=== PATIENT | female | born 1980 | race Caucasian/White ===

== ENCOUNTER → 2016-05-31 | Outpatient (CLI) | payer OTHER ==
[~2016-05-31] VITALS: Ht 167.6 cm; Wt 64.4 kg
[~2016-05-31] MED LIST: ASMA1AER3 INH; GAVICHW5 PO; LIDOCAINE 2% INJ 100 MG/5 ML SDV (FOR ANES.) As Ordered ONE; MAGN250T5 PO; NS 1,000 ML IV SCH; PROA1AER INH; PROPOFOL 200 MG/20 ML VIAL As Ordered ONE; PROZ20CA11 PO; VITA-112 PO; VITA-130 PO; VITA250L PO; XANA0.25 PO
--- NOTE | 2016-05-31 10:25 | ROOR ---
Patient Name: Maira Huff Procedure Date: 05/31/2016 10:01 AM Date of : 1980 Age: 36 Room: [facility] Gender: Female Note Status: Finalized Procedure: Colonoscopy Indications: High risk colon cancer surveillance: Personal history of colonic polyps, Last colonoscopy: December 2012 Providers: Clark CROUCH MD Referring MD: Arik Mendez MD Requesting Provider: Medicines: Monitored Anesthesia Care Complications: No immediate complications. Procedure: Pre-Anesthesia Assessment: - The heart rate, respiratory rate, oxygen saturations, blood pressure, adequacy of pulmonary ventilation, and response to care were monitored throughout the procedure. The Colonoscope was introduced through the anus and advanced to the cecum, identified by appendiceal orifice and ileocecal valve. The colonoscopy was performed without difficulty. The patient tolerated the procedure well. The quality of the bowel preparation was good. Findings: The perianal and digital rectal examinations were normal. (Exam: Complete, Prep: Good or Excellent.) The colon (entire examined portion) was redundant. The entire examined colon appeared normal on direct and retroflexion views. Impression: - Redundant colon. - The entire colon is normal on direct and retroflexion views. - No specimens collected. Recommendation: - Repeat colonoscopy in 5 years for surveillance. Clark Crouch MD Clark CROUCH MD 05/31/2016 10:24:53 AM This report has been signed electronically. Number of Addenda: 0 Note Initiated On: 05/31/2016 10:01 AM Estimated Blood Loss: Estimated blood loss: none.
[2016-05-31 10:50] VITALS: BP 108/61
== END | disposition home or self-care (01) ==
LOC: M OPP 08:06
PROVIDERS: ATTEND Internal Medicine Gastroenterology
DX: Z12.11 Encounter for screening for malignant neoplasm of colon (principal); Z86.010 Personal history of colon polyps; Q43.8 Other specified congenital malformations of intestine; R06.83 Snoring; J45.909 Unspecified asthma, uncomplicated; Z97.2 Presence of dental prosthetic device (complete) (partial); Z87.891 Personal history of nicotine dependence; Z79.899 Other long term (current) drug therapy; Z88.8 Allergy status to other drugs, medicaments and biological substances

== ENCOUNTER → 2016-06-13 | Outpatient (REF) | payer OTHER ==
[~2016-06-13] MED LIST changes: -LIDOCAINE 2% INJ 100 MG/5 ML SDV (FOR ANES.) As Ordered ONE; -NS 1,000 ML IV SCH; -PROPOFOL 200 MG/20 ML VIAL As Ordered ONE
[2016-06-13 16:01] LABS: MAGNESIUM LEVEL 1.8 MG/DL (1.8-2.4)
[2016-06-13 16:12] LABS: FOLATE 15.8 NG/ML (>5.4)
== END ==
LOC: M LABNEURO 08:36
PROVIDERS: ATTEND Physician Assistant Medical
DX: E55.9 Vitamin D deficiency, unspecified (principal); E83.42 Hypomagnesemia; E53.8 Deficiency of other specified B group vitamins

== ENCOUNTER → 2016-06-18 | Outpatient (REF) | payer OTHER | LOC: M LAB REF 06-17 12:21 | PROVIDERS: ATTEND Family Medicine | DX: Z13.220 Encounter for screening for lipoid disorders (principal) ==

== ENCOUNTER → 2016-09-13 | Outpatient (CLI) | payer OTHER ==
[~2016-09-13] MED LIST changes: +METHACHOLINE KIT (J7674) INH ONE
--- NOTE | 2016-09-13 08:32 | PFTRPT ---
Tech: Nohelia HANNAH RRT Age: 36 Sex: Female Race: Height: 66.00 Inches Weight: 145.00 Lbs BSA: 1.74 Diagnosis: R05 METHACHOLINE CHALLENGE REPORT: ORDERING PROVIDER: Jarvis Andres MD DATE OF SERVICE: 09/13/16 INTERPRETATION: The study was of excellent technical quality. Under protocol, methacholine was administered. Even after a maximal dose of 25 mg (188.875 CDUs) of methacholine , no provocation dose was ever achieved. IMPRESSION: Negative methacholine challenge study. MTDD
== END ==
LOC: M CARPUL 07:32
PROVIDERS: ATTEND Internal Medicine Pulmonary Disease
DX: R05 Cough (principal)

== ENCOUNTER → 2016-10-05 | Outpatient (REF) | payer OTHER ==
[~2016-10-05] MED LIST changes: -MAGN250T5 PO; +MAGN250T6 PO; -METHACHOLINE KIT (J7674) INH ONE; -PROA1AER INH; +PROAAER10 INH; -VITA-130 PO; +VITA500T PO; +ZOFR4TAB3 PO
[2016-10-05 16:05] LABS: FOLLICLE STIMULATING HORMONE 8.2 mIU/mL; LUTEINIZING HORMONE 6.5 mIU/mL
== END ==
LOC: M SFHCWAGY 15:26
PROVIDERS: ATTEND Nurse Practitioner Family
DX: N95.1 Menopausal and female climacteric states (principal)

== ENCOUNTER → 2016-10-07 | Outpatient (CLI) | payer OTHER ==
--- NOTE | 2016-10-07 10:49 | REP ---
PELVIC SONOGRAPHY: HISTORY: Menorrhagia. Comparison sonography August 06, 2012. FINDINGS: Transabdominal and transvaginal scanning are included. Uterine dimensions are 9.1 x 4.3 x 5.1 cm. Endometrial echo 0.5 cm thick. No focal uterine mass is seen. No free fluid is seen. Normal ovaries are observed. The right ovary measures 3.3 x 2.1 x 2.1 cm. Left ovary dimensions are 6.0 x 2.1 x 2.3 cm. There are normal follicle cysts. IMPRESSION: Unremarkable pelvic sonography.
== END ==
LOC: M WHC 08:06
PROVIDERS: ATTEND Nurse Practitioner Family
DX: N92.0 Excessive and frequent menstruation with regular cycle (principal)

== ENCOUNTER 2016-12-03 11:25 | Emergency (ER) | payer OTHER ==
[~2016-12-03] VITALS: Ht 167.6 cm; Wt 65.0 kg
[~2016-12-03 11:25] MED LIST changes: -ZOFR4TAB3 PO
[2016-12-03] MEDS ORDERED: ONDANSETRON 4 MG ORAL DISINTEGRATING TAB (S0181) PO ONE (13:00)
[2016-12-03] MEDS ORDERED: ACETAMINOPHEN TAB 650MG DOSE (2X325MG) PO ONE (13:00)
[2016-12-03 13:18] LABS: BASO % 0.9 % (0.0-1.0); EOS % 1.5 % (0.0-3.0); LARGE UNSTAINED CELL # 0.1 K/mm3 (0.0-0.4); LARGE UNSTAINED CELL % 1.9 % (0.0-4.0); LYMPH # 1.4 K/mm3 (1.5-4.5); LYMPH % 37.9 % (24.0-44.0); MEAN CORPUSCULAR HEMOGLOBIN 29.8 pg (27.0-33.0); MEAN CORPUSCULAR HGB CONC 33.9 g/dl (32.0-36.5); MONO # 0.2 K/mm3 (0.0-0.8); MONO % 6.3 % (0.0-5.0); NEUTROPHILS # 1.9 K/mm3 (1.8-7.7); NEUTROPHILS % 51.6 % (36.0-66.0); PLATELET COUNT, AUTOMATED 245 k/mm3 (150-450); RED CELL DISTRIBUTION WIDTH 12.6 % (11.5-14.5); WHITE BLOOD COUNT 3.6 K/mm3 (4.0-10.0)
[2016-12-03 13:32] LABS: ANION GAP 7 MEQ/L (8-16); BLOOD UREA NITROGEN 6 MG/DL (7-18); CALCIUM LEVEL 8.5 MG/DL (8.5-10.1); CARBON DIOXIDE LEVEL 29 MEQ/L (21-32); CHLORIDE LEVEL 106 MEQ/L (98-107); CREATININE FOR GFR 0.62 MG/DL (0.55-1.02); GLOMERULAR FILTRATION RATE > 60.0 (>60); GLUCOSE, FASTING 95 MG/DL (70-105); MAGNESIUM LEVEL 1.9 MG/DL (1.8-2.4); POTASSIUM SERUM 4.3 MEQ/L (3.5-5.1); SODIUM LEVEL 142 MEQ/L (136-145)
[2016-12-03] MEDS ORDERED: ZOFR4TAB3 PO (14:02)
[2016-12-03 14:17] VITALS: BP 100/60
== END 2016-12-03 14:19 | disposition home or self-care (01) ==
LOC: M ED 11:25
DX: G43.909 Migraine, unspecified, not intractable, without status migrainosus (principal); R11.0 Nausea; J45.909 Unspecified asthma, uncomplicated; Z90.49 Acquired absence of other specified parts of digestive tract; Z79.899 Other long term (current) drug therapy; Z88.8 Allergy status to other drugs, medicaments and biological substances

== ENCOUNTER → 2016-12-14 | Outpatient (REF) | payer OTHER ==
[~2016-12-14] MED LIST changes: +ZOFR4TAB3 PO
[2016-12-14 11:02] LABS: MAGNESIUM LEVEL 1.9 MG/DL (1.8-2.4)
== END ==
LOC: M LABNEURO 08:43
PROVIDERS: ATTEND Physician Assistant Medical
DX: E55.9 Vitamin D deficiency, unspecified (principal); E83.42 Hypomagnesemia; E53.8 Deficiency of other specified B group vitamins

== ENCOUNTER → 2017-01-23 | Outpatient (CLI) | payer OTHER ==
[2017-01-23 12:47] LABS: MEAN CORPUSCULAR HEMOGLOBIN 28.6 pg (27.0-33.0); MEAN CORPUSCULAR HGB CONC 32.3 g/dl (32.0-36.5); MEAN CORPUSCULAR VOLUME 88.6 fl (80.0-96.0); PLATELET COUNT, AUTOMATED 228 10^3/uL (150-450); RED CELL DISTRIBUTION WIDTH 13.2 % (11.5-14.5); WHITE BLOOD COUNT 4.4 10^3/uL (4.0-10.0)
[2017-01-23 13:41] LABS: ANION GAP 6 MEQ/L (8-16); BLOOD UREA NITROGEN 9 MG/DL (7-18); CARBON DIOXIDE LEVEL 30 MEQ/L (21-32); CHLORIDE LEVEL 103 MEQ/L (98-107); CREATININE FOR GFR 0.66 MG/DL (0.55-1.02); GLOMERULAR FILTRATION RATE > 60.0 (>60); GLUCOSE, FASTING 114 MG/DL (70-105); POTASSIUM SERUM 4.6 MEQ/L (3.5-5.1); SODIUM LEVEL 139 MEQ/L (136-145)
== END ==
LOC: M LAB 12:11
PROVIDERS: ATTEND Internal Medicine Cardiovascular Disease
DX: I95.0 Idiopathic hypotension (principal); R00.2 Palpitations

== ENCOUNTER → 2017-01-24 | Outpatient (REF) | payer OTHER | LOC: M SFHCADAM 15:18 | PROVIDERS: ATTEND Physician Assistant | DX: M79.1 Myalgia (principal) ==

== ENCOUNTER → 2017-02-16 | Outpatient (CLI) | payer OTHER ==
[~2017-02-16] MED LIST changes: +DOXY100C; +FLUOXETINE; +HYDR-643
[2017-02-16 10:14] LABS: BASO % 0.9 % (0.0-1.0); EOS % 0.4 % (0.0-3.0); IMMATURE GRANULOCYTE % 0.2 % (0-0); LYMPH # 1.2 10^3/uL (1.5-4.5); LYMPH % 27.7 % (24.0-44.0); MEAN CORPUSCULAR HEMOGLOBIN 28.1 pg (27.0-33.0); MEAN CORPUSCULAR HGB CONC 32.1 g/dl (32.0-36.5); MEAN CORPUSCULAR VOLUME 87.6 fl (80.0-96.0); MONO # 0.3 10^3/uL (0.0-0.8); MONO % 7.1 % (0.0-5.0); NEUTROPHILS # 2.9 10^3/uL (1.8-7.7); NEUTROPHILS % 63.7 % (36.0-66.0); PLATELET COUNT, AUTOMATED 254 10^3/uL (150-450); RED CELL DISTRIBUTION WIDTH 13.2 % (11.5-14.5); WHITE BLOOD COUNT 4.5 10^3/uL (4.0-10.0)
[2017-02-16 10:30] LABS: MAGNESIUM LEVEL 1.9 MG/DL (1.8-2.4)
[2017-02-16 10:56] LABS: ERYTHROCYTE SEDIMENTATION RATE 7 mm/hr (0-20)
[2017-02-16 15:10] LABS: VITAMIN B12 LEVEL 949 PG/ML (247-911)
[2017-02-16 15:11] LABS: FOLATE 13.9 NG/ML (>5.4)
[2017-02-20 08:06] LABS: Lyme Disease IgG/IgM Antibodie <0.91 ISR (0.00-0.90); Lyme Disease IgM Ab Quantitati <0.80 index (0.00-0.79); VITAMIN E LEVEL 10.3 mg/L (5.3-16.8)
== END ==
LOC: M LAB 09:28
PROVIDERS: ATTEND Physician Assistant Medical
DX: R53.1 Weakness (principal)

== ENCOUNTER 2017-02-20 12:59 | Emergency (ER) | payer OTHER ==
[~2017-02-20] VITALS: Ht 167.6 cm; Wt 63.6 kg
[~2017-02-20 12:59] MED LIST changes: -DOXY100C; -FLUOXETINE; -HYDR-643
[2017-02-20] MEDS ORDERED: FLUOXETINE (13:06)
[2017-02-20] MEDS ORDERED: DOXY100C (13:06)
[2017-02-20] MEDS ORDERED: HYDR-643 (13:06)
[2017-02-20 16:12] LABS: CONTROL LINE MONO INT CTR LINE PRESENT
--- NOTE | 2017-02-20 16:47 | REP ---
Clinical: Acute left-sided abdominal pain. Technique: Real time bautista scale ultrasound examination using curved array transducer. Findings: The spleen is normal in contour, size, echogenicity without focal splenic lesion identified, and measures 11.7 x 7.2 x 3.0 cm. The left kidney is normal in reniform shape without hydronephrosis and measures 12.8 x 5.3 x 6.3 cm. No ascites in the visualized left upper quadrant. Impression: Normal left upper quadrant ultrasound. Signed by Timur Sage MD 02/20/2017 04:38 P
[2017-02-20 17:12] VITALS: BP 114/68
== END 2017-02-20 17:14 | disposition home or self-care (01) ==
LOC: M ED 12:59
DX: R10.12 Left upper quadrant pain (principal)

== ENCOUNTER → 2017-02-20 | Outpatient (CLI) | payer OTHER ==
[2017-02-20 13:50] LABS: BASO # 0.1 10^3/uL (0.0-0.2); EOS # 0.1 10^3/uL (0.0-0.50); IMMATURE GRANULOCYTE % 0.2 % (0-0); LYMPH # 1.8 10^3/uL (1.5-4.5); LYMPH % 34.9 % (24.0-44.0); MEAN CORPUSCULAR HEMOGLOBIN 28.9 pg (27.0-33.0); MEAN CORPUSCULAR HGB CONC 32.9 g/dl (32.0-36.5); MONO # 0.4 10^3/uL (0.0-0.8); MONO % 8.2 % (0.0-5.0); NEUTROPHILS # 2.9 10^3/uL (1.8-7.7); NEUTROPHILS % 54.7 % (36.0-66.0); PLATELET COUNT, AUTOMATED 265 10^3/uL (150-450); WHITE BLOOD COUNT 5.3 10^3/uL (4.0-10.0)
[2017-02-20 13:53] LABS: ALBUMIN 3.8 GM/DL (3.2-5.2); ALBUMIN/GLOBULIN RATIO 1.65 (1.00-1.93); ALKALINE PHOSPHATASE 42 U/L (45-117); ALT/SGPT 14 U/L (12-78); ANION GAP 6 MEQ/L (8-16); AST/SGOT 7 U/L (7-37); BILIRUBIN,TOTAL 0.3 MG/DL (0.2-1.0); BLOOD UREA NITROGEN 10 MG/DL (7-18); CALCIUM LEVEL 8.5 MG/DL (8.5-10.1); CARBON DIOXIDE LEVEL 30 MEQ/L (21-32); CHLORIDE LEVEL 105 MEQ/L (98-107); CREATININE FOR GFR 0.63 MG/DL (0.55-1.02); GLOMERULAR FILTRATION RATE > 60.0 (>60); GLUCOSE, FASTING 101 MG/DL (70-105); POTASSIUM SERUM 3.8 MEQ/L (3.5-5.1); SODIUM LEVEL 141 MEQ/L (136-145); TOTAL PROTEIN 6.1 GM/DL (6.4-8.2)
== END ==
LOC: M LAB 12:47
PROVIDERS: ATTEND Physician Assistant
DX: R10.12 Left upper quadrant pain (principal)

== ENCOUNTER → 2017-03-01 | Outpatient (REF) | payer OTHER ==
[~2017-03-01] MED LIST changes: +DOXY100C; +FLUOXETINE; +HYDR-643; +LACT1TAB4 PO; +[UNRECOGNIZED DRUG - OTHER]
[2017-03-01 19:50] LABS: BASO # 0.1 10^3/uL (0.0-0.2); EOS # 0.1 10^3/uL (0.0-0.50); EOS % 1.9 % (0.0-3.0); LYMPH # 2.1 10^3/uL (1.5-4.5); LYMPH % 44.2 % (24.0-44.0); MEAN CORPUSCULAR HEMOGLOBIN 28.5 pg (27.0-33.0); MEAN CORPUSCULAR HGB CONC 32.7 g/dl (32.0-36.5); MEAN CORPUSCULAR VOLUME 87.3 fl (80.0-96.0); MONO # 0.4 10^3/uL (0.0-0.8); NEUTROPHILS # 2.1 10^3/uL (1.8-7.7); NEUTROPHILS % 43.9 % (36.0-66.0); PLATELET COUNT, AUTOMATED 242 10^3/uL (150-450); RED CELL DISTRIBUTION WIDTH 13.3 % (11.5-14.5); WHITE BLOOD COUNT 4.8 10^3/uL (4.0-10.0)
[2017-03-03 07:19] LABS: ERYTHROCYTE SEDIMENTATION RATE 5 mm/hr (0-20)
== END ==
LOC: M SFHCADAM 12:10
PROVIDERS: ATTEND Family Medicine
DX: R59.1 Generalized enlarged lymph nodes (principal)

== ENCOUNTER 2017-03-02 10:01 | Emergency (ER) | payer OTHER ==
[~2017-03-02] VITALS: Ht 167.6 cm; Wt 65.0 kg
[~2017-03-02 10:01] MED LIST changes: -LACT1TAB4 PO; -[UNRECOGNIZED DRUG - OTHER]
[2017-03-02] MEDS ORDERED: LACT1TAB4 PO (10:11)
[2017-03-02] MEDS ORDERED: [UNRECOGNIZED DRUG - OTHER] (10:11)
[2017-03-02] MEDS ORDERED: PROZ20CA11 PO (10:11)
[2017-03-02] MEDS ORDERED: NS 1,000 ML IV ONE (10:30)
[2017-03-02 10:59] LABS: BASO % 0.9 % (0.0-1.0); EOS % 0.9 % (0.0-3.0); IMMATURE GRANULOCYTE % 0.2 % (0-0); LYMPH # 1.6 10^3/uL (1.5-4.5); LYMPH % 36.2 % (24.0-44.0); MEAN CORPUSCULAR HGB CONC 33.2 g/dl (32.0-36.5); MEAN CORPUSCULAR VOLUME 87.4 fl (80.0-96.0); MONO # 0.4 10^3/uL (0.0-0.8); MONO % 9.1 % (0.0-5.0); NEUTROPHILS # 2.4 10^3/uL (1.8-7.7); NEUTROPHILS % 52.7 % (36.0-66.0); PLATELET COUNT, AUTOMATED 239 10^3/uL (150-450); RED CELL DISTRIBUTION WIDTH 13.2 % (11.5-14.5); WHITE BLOOD COUNT 4.5 10^3/uL (4.0-10.0)
[2017-03-02 11:16] LABS: CONTROL LINE MONO RF C INT CTR LINE PRESENT
[2017-03-02 11:26] LABS: ALBUMIN 3.8 GM/DL (3.2-5.2); ALBUMIN/GLOBULIN RATIO 1.36 (1.00-1.93); ALKALINE PHOSPHATASE 35 U/L (45-117); ALT/SGPT 18 U/L (12-78); AMYLASE 30 U/L (25-115); ANION GAP 6 MEQ/L (8-16); AST/SGOT 10 U/L (7-37); BILIRUBIN,DIRECT 0.1 MG/DL (0.0-0.2); BILIRUBIN,TOTAL 0.5 MG/DL (0.2-1.0); BLOOD UREA NITROGEN 10 MG/DL (7-18); CALCIUM LEVEL 8.6 MG/DL (8.5-10.1); CARBON DIOXIDE LEVEL 29 MEQ/L (21-32); CHLORIDE LEVEL 106 MEQ/L (98-107); CREATININE FOR GFR 0.62 MG/DL (0.55-1.02); GLOMERULAR FILTRATION RATE > 60.0 (>60); GLUCOSE, FASTING 89 MG/DL (70-105); POTASSIUM SERUM 3.9 MEQ/L (3.5-5.1); SODIUM LEVEL 141 MEQ/L (136-145); TOTAL PROTEIN 6.6 GM/DL (6.4-8.2)
[2017-03-02] MEDS ORDERED: ISOVUE-370 76% 100ML VIAL (Q9967) As Ordered ONE (11:39)
--- NOTE | 2017-03-02 12:13 | REP ---
Clinical: Acute abdominal pain. Technique: Axial contrast enhanced images from the lung bases to the pubic symphysis using 100 ml Isovue 370 intravenous contrast material with coronal and sagittal re-formations. Findings: Lung bases are clear. Visualized heart and pericardium normal. Liver, spleen, pancreas, bilateral adrenal glands and kidneys are normal. The enteric system demonstrates postsurgical changes at the gastroesophageal junction consistent with fundal plication. The patient is status post cholecystectomy. The small and large bowel is without obstruction or obvious acute inflammatory process and a normal terminal ileum and appendix are identified in the right lower quadrant. Pelvis demonstrates normal bladder and age-appropriate uterus/adnexa. No pelvic fluid or ascites. No adenopathy. Abdominal aorta and vasculature appears normal. Musculoskeletal structures are intact. Impression: 1. No obvious acute abdominopelvic pathology appreciated. 2. No free fluid/ascites or adenopathy. Signed by Timur Sage MD 03/02/2017 12:04 P
[2017-03-02 14:13] VITALS: BP 102/57
--- NOTE | 2017-03-03 09:14 | ECGEPIP ---
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
== END 2017-03-02 14:15 | disposition home or self-care (01) ==
LOC: M ED 10:01
DX: K75.9 Inflammatory liver disease, unspecified (principal); B27.90 Infectious mononucleosis, unspecified without complication; J45.909 Unspecified asthma, uncomplicated; F41.9 Anxiety disorder, unspecified; E53.8 Deficiency of other specified B group vitamins; Z87.891 Personal history of nicotine dependence; Z82.49 Family history of ischemic heart disease and other diseases of the circulatory system; Z79.899 Other long term (current) drug therapy; Z88.8 Allergy status to other drugs, medicaments and biological substances
CPT/HCPCS: 74177; 80048; 80076; 81001; 81025; 82150; 82550; 82553; 83690; 85025; 86308; 86663; 86664; 86665; 86705; 86709; 86803; 87086; 87340; 93005; 99284; Q9967

== ENCOUNTER → 2017-03-03 | Outpatient (CLI) | payer OTHER ==
[~2017-03-03] MED LIST changes: +LACT1TAB4 PO; +[UNRECOGNIZED DRUG - OTHER]
[2017-03-08 00:07] LABS: ACETYLCHOLINE RCPTOR BINDING A < 0.03 nmol/L (0.00-0.24)
== END ==
LOC: M LAB 15:39
PROVIDERS: ATTEND Physician Assistant Medical
DX: G35 Multiple sclerosis (principal)

== ENCOUNTER → 2017-03-07 | Outpatient (CLI) | payer OTHER ==
--- NOTE | 2017-03-07 08:51 | REPMRS ---
Patient History The patient states she had a clinical breast exam in 02/17 Baseline Mammogram Family history of pancreatic cancer in paternal grandmother at age 50 or over. Took hormonal contraceptives for 2 months. Digital Woman Screen Mammo: March 07, 2017 - Exam #: [id number] Bilateral CC and MLO view(s) were taken. Technologist: Bailey Rosario, Technologist FINDINGS: The breast tissue is heterogeneously dense. This may lower the sensitivity of mammography. There is a moderate amount of residual fibroglandular tissue which is fairly symmetric. There is no dominant mass, architectural distortion, or clustered microcalcification typical of malignancy. ASSESSMENT: BI-RADS/ACR category 1 mammogram. Negative. Recommendation Routine screening mammogram in 1 year (for women over age 40). This mammogram was interpreted with the aid of an FDA-approved computer-aided dectection system. A. Negative x-ray reports should not delay biopsy if a dominant or clinically suspicious mass is present. B. Four to eight percent of cancers are not identified by mammography. C. Adenosis and dense breast may obscure an underlying neoplasm. Electronically Signed By: Ej Scales MD 03/07/17 0830
== END ==
LOC: M WHC 07:07
PROVIDERS: ATTEND Nurse Practitioner Family
DX: Z12.31 Encounter for screening mammogram for malignant neoplasm of breast (principal)

== ENCOUNTER → 2017-03-16 | Outpatient (CLI) | payer OTHER ==
[2017-03-16 11:29] LABS: MEAN CORPUSCULAR HGB CONC 33.1 g/dl (32.0-36.5); MEAN CORPUSCULAR VOLUME 87.7 fl (80.0-96.0); PLATELET COUNT, AUTOMATED 274 10^3/uL (150-450); RED CELL DISTRIBUTION WIDTH 13.1 % (11.5-14.5); WHITE BLOOD COUNT 4.3 10^3/uL (4.0-10.0)
[2017-03-16 11:53] LABS: ERYTHROCYTE SEDIMENTATION RATE 4 mm/hr (0-20)
--- NOTE | 2017-03-16 12:18 | REP ---
CHEST, TWO VIEWS: COMPARISON: 03/11/2016. There is no evidence of acute infiltrate. No pleural effusion is seen. The heart is normal in size. The mediastinal silhouette is unremarkable. The visualized osseous structures are intact. IMPRESSION: No acute pulmonary disease. Signed by Jaylon Damon MD 03/16/2017 12:57 P
[2017-03-16 12:19] LABS: ALBUMIN 3.9 GM/DL (3.2-5.2); ALBUMIN/GLOBULIN RATIO 1.44 (1.00-1.93); ALKALINE PHOSPHATASE 44 U/L (45-117); ALT/SGPT 16 U/L (12-78); ANION GAP 7 MEQ/L (8-16); AST/SGOT 11 U/L (7-37); BILIRUBIN,TOTAL 0.5 MG/DL (0.2-1.0); BLOOD UREA NITROGEN 11 MG/DL (7-18); CALCIUM LEVEL 8.6 MG/DL (8.5-10.1); CARBON DIOXIDE LEVEL 29 MEQ/L (21-32); CHLORIDE LEVEL 105 MEQ/L (98-107); CREATININE FOR GFR 0.67 MG/DL (0.55-1.02); GLOMERULAR FILTRATION RATE > 60.0 (>60); GLUCOSE, FASTING 88 MG/DL (70-105); POTASSIUM SERUM 3.9 MEQ/L (3.5-5.1); SODIUM LEVEL 141 MEQ/L (136-145); TOTAL PROTEIN 6.6 GM/DL (6.4-8.2)
== END ==
LOC: M LAB 10:52
PROVIDERS: ATTEND Family Medicine
DX: D64.9 Anemia, unspecified (principal)

== ENCOUNTER 2017-04-02 08:49 | Emergency (ER) | payer OTHER ==
[2017-04-02] MEDS: METOCLOPRAMIDE 10 MG TAB PO (09:15)
[2017-04-02] MEDS: ACETAMINOPHEN TAB 650MG DOSE (2X325MG) PO (11:16)
== END 2017-04-02 11:25 | disposition home or self-care (01) ==
LOC: M ED 08:49
DX: R11.0 Nausea (principal); R19.7 Diarrhea, unspecified; Z20.89 Contact with and (suspected) exposure to other communicable diseases; K22.4 Dyskinesia of esophagus; F41.9 Anxiety disorder, unspecified; F32.9 Major depressive disorder, single episode, unspecified; Z87.891 Personal history of nicotine dependence; Z79.899 Other long term (current) drug therapy; Z88.8 Allergy status to other drugs, medicaments and biological substances
CPT/HCPCS: 99283

== ENCOUNTER 2018-01-25 17:15 | Emergency (ER) | payer OTHER ==
[2018-01-25] MEDS: ACETAMINOPHEN 325 MG TAB PO (20:16)
[2018-01-25] MEDS: GI COCKTAIL 50ML BTL(HYOSCYAMINE/MAALOX/LIDOCAINE VISCOUS)(1:3:1) PO (20:16)
== END 2018-01-25 21:30 | disposition home or self-care (01) ==
LOC: M ED 17:15
DX: F45.8 Other somatoform disorders (principal); M50.30 Other cervical disc degeneration, unspecified cervical region; K22.4 Dyskinesia of esophagus; Z79.899 Other long term (current) drug therapy
CPT/HCPCS: 70360

== ENCOUNTER → 2018-02-08 | Outpatient (CLI) | payer OTHER | LOC: M ST 10:48 | DX: R13.10 Dysphagia, unspecified (principal) | CPT/HCPCS: 74230 ==

== ENCOUNTER → 2018-03-06 | Outpatient (REF) | payer OTHER ==
[2018-03-06 19:23] LABS: MAGNESIUM LEVEL 1.9 MG/DL (1.8-2.4)
[2018-03-06 19:23] LABS: THYROID STIMULATING HORMONE 0.404 uIU/ML (0.358-3.740)
[2018-03-06 19:25] LABS: FOLATE 13.8 NG/ML; TOTAL 25(OH) VITAMIN D 33.5 NG/ML (30.0-100.0); VITAMIN B12 LEVEL 1354 PG/ML
== END ==
LOC: M LABNEURO 15:20
DX: E53.8 Deficiency of other specified B group vitamins (principal); E55.9 Vitamin D deficiency, unspecified; R51 Headache; R41.3 Other amnesia
CPT/HCPCS: 82746

== ENCOUNTER 2018-03-08 10:33 | Day surgery (SDC) | payer OTHER ==
[~2018-03-08] VITALS: Ht 167.6 cm; Wt 66.9 kg
[~2018-03-08 10:33] MED LIST changes: +ACET1TAB55 PO; +GAS-80CH PO; +GAVICHW PO; +ZOFR4TAB14 PO; -ZOFR4TAB3 PO
[2018-03-08] MEDS ORDERED: NS 1,000 ML IV ONE (11:30)
[2018-03-08] MEDS ORDERED: AUGM875T28 PO (11:51)
[2018-03-08] MEDS ORDERED: PROPOFOL 200 MG/20 ML VIAL As Ordered ONE (11:58)
[2018-03-08] MEDS ORDERED: LIDOCAINE 2% INJ 100 MG/5 ML SDV (FOR ANES.) As Ordered ONE (11:59)
--- NOTE | 2018-03-08 12:16 | ROOR ---
Patient Name: Maira Huff Procedure Date: 03/08/2018 11:55 AM Date of : 1980 Age: 38 Room: CALDER02 Gender: Female Note Status: Finalized Procedure: Upper GI endoscopy Indications: Functional Dyspepsia, Dysphagia Providers: Clark CROUCH MD Referring MD: HANNA RAY MD Requesting Provider: Medicines: Monitored Anesthesia Care Complications: No immediate complications. Procedure: Pre-Anesthesia Assessment: - The heart rate, respiratory rate, oxygen saturations, blood pressure, adequacy of pulmonary ventilation, and response to care were monitored throughout the procedure. The Endoscope was introduced through the mouth, and advanced to the second part of duodenum. The upper GI endoscopy was accomplished without difficulty. The patient tolerated the procedure well. Findings: The esophagus was normal. The stomach was normal. The examined duodenum was normal. Evidence of a fundoplication was found in the cardia. The wrap appeared intact. Impression: - Normal esophagus. - Normal stomach. A fundoplication was found. The wrap appears intact. - Normal examined duodenum. - No specimens collected. Recommendation: - Observe patient's clinical course. - I anticipate no further need for intervention. 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 For persistent symptoms, I would recommend discussion with your surgeon for possible takedown of the More wrap. Clark Crouch MD Clark CROUCH MD 03/08/2018 12:16:19 PM This report has been signed electronically. Number of Addenda: 0 Note Initiated On: 03/08/2018 11:55 AM Estimated Blood Loss: Estimated blood loss: none.
[2018-03-08 12:35] VITALS: BP 90/46
== END 2018-03-08 12:46 | disposition home or self-care (01) ==
LOC: M OPP 10:33
PROVIDERS: ATTEND Internal Medicine Gastroenterology
DX: K30 Functional dyspepsia (principal); R13.10 Dysphagia, unspecified; Z98.890 Other specified postprocedural states

== ENCOUNTER 2018-04-28 14:37 | Emergency (ER) | payer OTHER ==
[~2018-04-28] VITALS: Ht 167.6 cm; Wt 68.2 kg
[~2018-04-28 14:37] MED LIST changes: +AUGM875T28 PO
[2018-04-28] MEDS ORDERED: MECLIZINE 25 MG TABLET PO ONE (15:30)
--- NOTE | 2018-04-28 15:57 | REP ---
Clinical: Headache and dizziness . Comparison: 06/30/2010 . Findings: The ventricles, sulci, and cisterns are normal in position and appearance. Damon-white differentiation is maintained. No acute intracranial hemorrhage, mass/mass effect, pathology or trauma/injury. No evidence for acute infarction. No extra-axial fluid collection. Calvarium is intact. Paranasal sinuses and mastoid air cells are clear. Impression: Normal noncontrast head CT. No evidence for acute intracranial pathology or trauma/injury. Electronically Signed by Timur Sage MD 04/28/2018 03:49 P
[2018-04-28] MEDS ORDERED: MUCI600T37 PO (16:24)
[2018-04-28] MEDS ORDERED: FLON1SPR NARES (16:24)
[2018-04-28] MEDS ORDERED: MECL-68 PO (16:24)
[2018-04-28 16:43] VITALS: BP 95/59
== END 2018-04-28 16:36 | disposition home or self-care (01) ==
LOC: M ED 14:37
DX: H81.399 Other peripheral vertigo, unspecified ear (principal); R09.81 Nasal congestion; F41.9 Anxiety disorder, unspecified; K22.4 Dyskinesia of esophagus; Z87.891 Personal history of nicotine dependence; Z88.8 Allergy status to other drugs, medicaments and biological substances; Z91.048 Other nonmedicinal substance allergy status; Z79.899 Other long term (current) drug therapy

== ENCOUNTER 2018-05-05 04:55 | Emergency (ER) | payer OTHER ==
[~2018-05-05] VITALS: Ht 167.6 cm; Wt 68.2 kg
[~2018-05-05 04:55] MED LIST changes: +FLON1SPR NARES; +MECL-68 PO; +MUCI600T37 PO
[2018-05-05 05:50] LABS: INFLUENZA A AMPLIFICATION NEGATIVE (NEGATIVE); INFLUENZA B AMPLIFICATION NEGATIVE (NEGATIVE)
[2018-05-05] MEDS ORDERED: NAPROXEN 250 MG TAB PO ONE (06:15)
[2018-05-05] MEDS ORDERED: ONDANSETRON 4 MG ORAL DISINTEGRATING TAB (Q0162 PER 1MG) PO ONE (06:15)
[2018-05-05] MEDS ORDERED: REGL5TAB2 PO (06:18)
[2018-05-05 07:02] VITALS: BP 105/52
== END 2018-05-05 07:03 | disposition home or self-care (01) ==
LOC: M ED 04:55
DX: J02.9 Acute pharyngitis, unspecified (principal); B34.9 Viral infection, unspecified; Z79.899 Other long term (current) drug therapy; Z88.8 Allergy status to other drugs, medicaments and biological substances; Z91.048 Other nonmedicinal substance allergy status
CPT/HCPCS: 87502; 87880; 99284; Q0162

== ENCOUNTER → 2018-05-25 | Outpatient (CLI) | payer OTHER ==
[~2018-05-25] MED LIST changes: +E-Z-GAS II EFFERVESCENT PACKET (SODIUM BICARB./CITRIC ACID/SIMETHICONE) As Ordered ONE; +E-Z-HD 98% w/w 340GM SUSP BTL As Ordered ONE; +E-Z-PAQUE 96% w/w SUSP 176GM BTL As Ordered ONE; +REGL5TAB2 PO; +VARIBAR NECTAR 40% w/v 240ML SUSP BTL As Ordered ONE; +VARIBAR PUDDING 40% w/v 230ML TUBE As Ordered ONE
--- NOTE | 2018-05-25 16:09 | REP ---
ESOPHAGRAM WITH BARIUM SWALLOW: 05/25/2018. Clinical history: Dysphagia. Prior history of More fundoplication. Comparison: 06/18/2015 Findings. Keysmith PA chest: Lungs are well inflated and clear. There is no widening the mediastinum or air-fluid levels in the mediastinum. Airway intact. Heart normal. Lung alaniz clear. AP and lateral cine esophagram performed at the lateral swallows show good bolus formation and transfer with appropriate elevation of the cricopharyngeus. There is a tiny anterior esophageal web in the proximal cervical esophagus. There is no laryngeal penetration or aspiration. No nasopharyngeal reflux. No stricture. The thoracic esophagus on upright view shows normal emptying and distensibility. There was no persistent mucosal abnormality, mass or extrinsic mass effect. There is the as postsurgical effect of the More fundoplication unchanged from the previous study. On the of bilateral prone oblique swallows. Distensibility is was also normal without persistent filling defects mass or extrinsic mass effect. However the stripping wave is not efficient and there was prolongation of the time to empty the esophagus which required repeated swallows. I do not see free or induced reflux. Impression: 1. Status post More fundoplication without hiatal hernia, free or induced reflux. 2. AP and lateral swallowing images show only a very tiny esophageal web anteriorly on the lateral swallow. This is not a significant finding or stricture with its small size. No laryngeal penetration or aspiration. 3. Thoracic esophagus shows some mild dysmotility with normal emptying on the upright views but on the prone oblique views it required multiple swallows to completely clear the esophagus. There is no stricture. 4. Fluoroscopy time 2.6 minutes. Electronically Signed by Ej Scales MD 05/25/2018 07:54 P
== END ==
LOC: M RAD 02-20 10:07
PROVIDERS: ATTEND Physician Assistant Medical
DX: R13.10 Dysphagia, unspecified (principal)

== ENCOUNTER → 2018-08-01 | Outpatient (REF) | payer OTHER ==
[~2018-08-01] MED LIST changes: -E-Z-GAS II EFFERVESCENT PACKET (SODIUM BICARB./CITRIC ACID/SIMETHICONE) As Ordered ONE; -E-Z-HD 98% w/w 340GM SUSP BTL As Ordered ONE; -E-Z-PAQUE 96% w/w SUSP 176GM BTL As Ordered ONE; -VARIBAR NECTAR 40% w/v 240ML SUSP BTL As Ordered ONE; -VARIBAR PUDDING 40% w/v 230ML TUBE As Ordered ONE
[2018-08-01 12:57] LABS: HEMATOCRIT 39.3 % (36.0-47.0); HEMOGLOBIN 12.5 g/dl (12.0-15.5); MEAN CORPUSCULAR HEMOGLOBIN 27.8 pg (27.0-33.0); MEAN CORPUSCULAR HGB CONC 31.8 g/dl (32.0-36.5); MEAN CORPUSCULAR VOLUME 87.5 fl (80.0-96.0); PLATELET COUNT, AUTOMATED 252 10^3/uL (150-450); RED BLOOD COUNT 4.49 10^6/uL (4.00-5.40); WHITE BLOOD COUNT 3.6 10^3/uL (4.0-10.0)
[2018-08-01 13:35] LABS: HEMOGLOBIN A1c 5.5 %
[2018-08-01 13:40] LABS: ALBUMIN 4.1 GM/DL (3.2-5.2); ALT/SGPT 23 U/L (12-78); BILIRUBIN,TOTAL 0.5 MG/DL (0.2-1.0); BLOOD UREA NITROGEN 14 MG/DL (7-18); CALCIUM LEVEL 8.7 MG/DL (8.5-10.1); CARBON DIOXIDE LEVEL 29 MEQ/L (21-32); CHLORIDE LEVEL 107 MEQ/L (98-107); CHOLESTEROL LEVEL 211 MG/DL (<200); CHOLESTEROL RISK RATIO 3.403 (<5); CREATININE FOR GFR 0.74 MG/DL (0.55-1.30); GLOMERULAR FILTRATION RATE > 60.0 (>60); GLUCOSE, FASTING 81 MG/DL (70-100); HDL CHOLESTEROL 62 MG/DL (>40); LDL CHOLESTEROL 135 MG/DL (<100); NON-HDL-C 149 MG/DL; POTASSIUM SERUM 4.3 MEQ/L (3.5-5.1); SODIUM LEVEL 142 MEQ/L (136-145); THYROID STIMULATING HORMONE 0.799 uIU/ML (0.358-3.740); TOTAL 25(OH) VITAMIN D 27.7 NG/ML (30.0-100.0); TOTAL PROTEIN 6.5 GM/DL (6.4-8.2); TRIGLYCERIDES LEVEL 68 MG/DL (<150)
== END ==
LOC: M LAB REF 12:08
PROVIDERS: ATTEND Family Medicine
DX: D64.9 Anemia, unspecified (principal); R53.83 Other fatigue; E03.9 Hypothyroidism, unspecified

== ENCOUNTER → 2018-08-23 | Outpatient (REF) | payer OTHER ==
[2018-08-23 19:38] LABS: HEMATOCRIT 40.1 % (36.0-47.0); HEMOGLOBIN 12.9 g/dl (12.0-15.5); MEAN CORPUSCULAR HEMOGLOBIN 28.9 pg (27.0-33.0); MEAN CORPUSCULAR HGB CONC 32.2 g/dl (32.0-36.5); MEAN CORPUSCULAR VOLUME 89.7 fl (80.0-96.0); PLATELET COUNT, AUTOMATED 238 10^3/uL (150-450); RED BLOOD COUNT 4.47 10^6/uL (4.00-5.40); WHITE BLOOD COUNT 4.4 10^3/uL (4.0-10.0)
[2018-08-23 19:54] LABS: ALBUMIN 4.2 GM/DL (3.2-5.2); ALT/SGPT 20 U/L (12-78); BILIRUBIN,TOTAL 0.4 MG/DL (0.2-1.0); BLOOD UREA NITROGEN 6 MG/DL (7-18); CARBON DIOXIDE LEVEL 30 MEQ/L (21-32); CHLORIDE LEVEL 105 MEQ/L (98-107); CREATININE FOR GFR 0.64 MG/DL (0.55-1.30); FREE T4 0.88 NG/DL (0.76-1.46); GLOMERULAR FILTRATION RATE > 60.0 (>60); GLUCOSE, FASTING 79 MG/DL (70-100); MAGNESIUM LEVEL 1.9 MG/DL (1.8-2.4); POTASSIUM SERUM 4.5 MEQ/L (3.5-5.1); SODIUM LEVEL 141 MEQ/L (136-145); TOTAL PROTEIN 6.6 GM/DL (6.4-8.2)
[2018-08-23 19:55] LABS: VITAMIN B12 LEVEL 677 PG/ML
== END ==
LOC: M SFHCADAM 11:51
PROVIDERS: ATTEND Physician Assistant
DX: R00.2 Palpitations (principal); R61 Generalized hyperhidrosis

== ENCOUNTER → 2018-09-04 | Outpatient (REF) | payer OTHER ==
[~2018-09-04] MED LIST changes: +FISH1000 PO
[2018-09-04 13:35] LABS: ESTRADIOL 37.6 PG/ML; FOLLICLE STIMULATING HORMONE 5.5 mIU/mL
== END ==
LOC: M SFHCWAGY 11:01
PROVIDERS: ATTEND Nurse Practitioner Family
DX: R61 Generalized hyperhidrosis (principal)

== ENCOUNTER 2018-09-05 09:13 | Emergency (ER) | payer OTHER ==
[~2018-09-05] VITALS: Ht 167.6 cm; Wt 68.6 kg
[~2018-09-05 09:13] MED LIST changes: -FISH1000 PO
[2018-09-05] MEDS ORDERED: FISH1000 PO (09:40)
--- NOTE | 2018-09-05 10:17 | REP ---
Chest one-view HISTORY: Chest pain Comparison: 08/16/2018 The lungs are clear. The heart is normal in size. The pulmonary vasculature is normal in appearance. Impression: No acute disease. Electronically Signed by Chidi Boss MD 09/05/2018 10:09 A
[2018-09-05 10:26] LABS: BASO % 1.1 % (0.0-1.0); EOS % 1.1 % (0.0-3.0); HEMOGLOBIN 12.3 g/dl (12.0-15.5); LYMPH # 1.7 10^3/uL (1.5-4.5); LYMPH % 45.6 % (24.0-44.0); MEAN CORPUSCULAR HEMOGLOBIN 29.3 pg (27.0-33.0); MEAN CORPUSCULAR HGB CONC 33.2 g/dl (32.0-36.5); MEAN CORPUSCULAR VOLUME 88.1 fl (80.0-96.0); MONO # 0.3 10^3/uL (0.0-0.8); MONO % 7.5 % (0.0-5.0); NEUTROPHILS # 1.7 10^3/uL (1.8-7.7); NEUTROPHILS % 44.4 % (36.0-66.0); PLATELET COUNT, AUTOMATED 233 10^3/uL (150-450); WHITE BLOOD COUNT 3.8 10^3/uL (4.0-10.0)
[2018-09-05 10:40] LABS: INR 0.96; PROTHROMBIN TIME 12.9 SECONDS (12.1-14.4)
[2018-09-05] MEDS ORDERED: IPRATROPIUM 0.5MG/ALBUTEROL 2.5MG INH SOL UD 3ML (DUONEB)(J7620) NEB ONE (11:00)
[2018-09-05 11:08] LABS: ALBUMIN 3.7 GM/DL (3.2-5.2); ALT/SGPT 28 U/L (12-78); BILIRUBIN,DIRECT 0.1 MG/DL (0.0-0.2); BILIRUBIN,TOTAL 0.4 MG/DL (0.2-1.0); BLOOD UREA NITROGEN 10 MG/DL (7-18); CARBON DIOXIDE LEVEL 27 MEQ/L (21-32); CHLORIDE LEVEL 107 MEQ/L (98-107); CK-MB VALUE MASS < 1.0 NG/ML (<3.6); CPK CREATINE PHOSPHOKINASE 70 U/L (26-192); CREATININE FOR GFR 0.62 MG/DL (0.55-1.30); GLOMERULAR FILTRATION RATE > 60.0 (>60); GLUCOSE, FASTING 82 MG/DL (70-100); LIPASE 105 U/L (73-393); MB/CK RELATIVE INDEX 1.43 (< OR =4); NT-PRO BNP 59 PG/ML (<125); POTASSIUM SERUM 4.2 MEQ/L (3.5-5.1); SODIUM LEVEL 141 MEQ/L (136-145); THYROID STIMULATING HORMONE 0.657 uIU/ML (0.358-3.740); TOTAL PROTEIN 6.2 GM/DL (6.4-8.2); TROPONIN I < 0.02 NG/ML (< 0.10)
[2018-09-05] MEDS ORDERED: ISOVUE-370 76% 100ML VIAL (Q9967) As Ordered ONE (11:30)
--- NOTE | 2018-09-05 12:29 | REP ---
CT ANGIOGRAM CHEST: TECHNIQUE: Axial contrast enhanced images from the thoracic inlet to the upper abdomen using 100 mL Isovue 370 intravenous contrast material with multiplanar reformations. There is no CT evidence of pulmonary embolism. There is no thoracic aortic aneurysm or dissection. There is no evidence of mediastinal, hilar, or chest wall lymphadenopathy. Residual thymic tissue is seen in the anterior mediastinum. The heart is normal in size. There is no pleural or pericardial effusion. The patient has had a prior cholecystectomy. No infiltrate is seen in either lung. There is a band of fibroatelectasis in the lingula. IMPRESSION: No CT evidence of pulmonary embolism or aortic dissection. Electronically Signed by Jaylon Damon MD 09/06/2018 09:00 A
[2018-09-05 13:21] VITALS: BP 102/64
--- NOTE | 2018-09-05 20:03 | ECGEPIP ---
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
== END 2018-09-05 13:46 | disposition home or self-care (01) ==
LOC: M ED 09:13
DX: R06.00 Dyspnea, unspecified (principal); F41.9 Anxiety disorder, unspecified; Z79.899 Other long term (current) drug therapy; Z88.8 Allergy status to other drugs, medicaments and biological substances; Z91.048 Other nonmedicinal substance allergy status; Z87.891 Personal history of nicotine dependence
CPT/HCPCS: 36415; 71045; 71275; 80048; 80076; 82550; 82553; 83690; 83880; 84443; 85025; 85610; 93005; 93041; 94640; 94760; 99285; Q9967

== ENCOUNTER 2018-09-25 21:06 | Emergency (ER) | payer OTHER ==
[~2018-09-25] VITALS: Ht 167.6 cm; Wt 67.3 kg
[~2018-09-25 21:06] MED LIST changes: +FISH1000 PO
[2018-09-25 21:34] LABS: BASO % 0.8 % (0.0-1.0); EOS # 0.1 10^3/uL (0.0-0.50); EOS % 1.5 % (0.0-3.0); HEMATOCRIT 35.7 % (36.0-47.0); HEMOGLOBIN 11.9 g/dl (12.0-15.5); LYMPH # 2.6 10^3/uL (1.5-4.5); LYMPH % 55.1 % (24.0-44.0); MEAN CORPUSCULAR HEMOGLOBIN 29.1 pg (27.0-33.0); MEAN CORPUSCULAR HGB CONC 33.3 g/dl (32.0-36.5); MEAN CORPUSCULAR VOLUME 87.3 fl (80.0-96.0); MONO # 0.4 10^3/uL (0.0-0.8); MONO % 8.4 % (0.0-5.0); NEUTROPHILS # 1.6 10^3/uL (1.8-7.7); NEUTROPHILS % 34.2 % (36.0-66.0); PLATELET COUNT, AUTOMATED 214 10^3/uL (150-450); RED BLOOD COUNT 4.09 10^6/uL (4.00-5.40); WHITE BLOOD COUNT 4.8 10^3/uL (4.0-10.0)
[2018-09-25 21:44] LABS: INR 0.98; PROTHROMBIN TIME 12.7 SECONDS (11.8-14.0)
[2018-09-25 21:56] LABS: HCG, SERUM QUALITATIVE NEGATIVE (NEGATIVE)
[2018-09-25 22:03] LABS: ALBUMIN 3.7 GM/DL (3.2-5.2); ALT/SGPT 20 U/L (12-78); BILIRUBIN,DIRECT 0.1 MG/DL (0.0-0.2); BILIRUBIN,TOTAL 0.2 MG/DL (0.2-1.0); BLOOD UREA NITROGEN 8 MG/DL (7-18); CALCIUM LEVEL 8.7 MG/DL (8.5-10.1); CARBON DIOXIDE LEVEL 28 MEQ/L (21-32); CHLORIDE LEVEL 107 MEQ/L (98-107); CK-MB VALUE MASS < 1.0 NG/ML (<3.6); CPK CREATINE PHOSPHOKINASE 74 U/L (26-192); CREATININE FOR GFR 0.64 MG/DL (0.55-1.30); FREE T4 0.73 NG/DL (0.76-1.46); GLOMERULAR FILTRATION RATE > 60.0 (>60); GLUCOSE, FASTING 84 MG/DL (70-100); LIPASE 144 U/L (73-393); MB/CK RELATIVE INDEX 1.35 (< OR =4); POTASSIUM SERUM 3.7 MEQ/L (3.5-5.1); SODIUM LEVEL 141 MEQ/L (136-145); TOTAL PROTEIN 6.4 GM/DL (6.4-8.2); TROPONIN I < 0.02 NG/ML (< 0.10)
[2018-09-26 03:38] VITALS: BP 104/66
--- NOTE | 2018-09-26 05:50 | REP ---
Clinical: Acute chest pain . Comparison: 09/05/2018 . Technique: PA and lateral. Findings: The mediastinum and cardiac silhouette are normal. The lung alaniz are clear and without acute consolidation, effusion, or pneumothorax. The skeletal structures are intact and normal. Impression: 1. No acute cardiopulmonary process. Electronically Signed by Timur Sage MD 09/26/2018 05:41 A
--- NOTE | 2018-09-26 21:33 | ECGEPIP ---
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
== END 2018-09-26 03:45 | disposition home or self-care (01) ==
LOC: M ED 21:06
DX: R00.2 Palpitations (principal); Z79.899 Other long term (current) drug therapy; Z88.8 Allergy status to other drugs, medicaments and biological substances; Z91.048 Other nonmedicinal substance allergy status

== ENCOUNTER → 2018-10-08 | Outpatient (REF) | payer OTHER ==
[2018-10-10 14:29] LABS: HPV HYBRID CAPTURE II Negative (Negative)
== END ==
LOC: M SFHCWAGY 14:37
PROVIDERS: ATTEND Nurse Practitioner Family
DX: Z12.4 Encounter for screening for malignant neoplasm of cervix (principal)

== ENCOUNTER → 2018-10-31 | Outpatient (REF) | payer OTHER ==
[2018-11-02 00:06] LABS: Lyme Disease IgG/IgM Antibodie <0.91 ISR (0.00-0.90); Lyme Disease IgM Ab Quantitati <0.80 index (0.00-0.79)
== END ==
LOC: M LABNEURO 08:50
PROVIDERS: ATTEND Family Medicine
DX: Z11.8 Encounter for screening for other infectious and parasitic diseases (principal); W57.XXXA Bitten or stung by nonvenomous insect and other nonvenomous arthropods, initial encounter; Y92.9 Unspecified place or not applicable; Y93.9 Activity, unspecified

== ENCOUNTER → 2018-11-22 | Outpatient (REF) | payer OTHER ==
[~2018-11-22] MED LIST changes: -MECL-68 PO; +MECL1TAB31 PO; +VITA-157 PO
== END ==
LOC: M LAB REF 12:21
PROVIDERS: ATTEND Radiology Diagnostic Radiology
DX: N60.02 Solitary cyst of left breast (principal)

== ENCOUNTER → 2018-11-23 | Outpatient (CLI) | payer OTHER ==
--- NOTE | 2018-11-28 14:51 | SLEEPCENT ---
DATE OF PROCEDURE: 11/23/2018 ORDERED BY: Claire Hand NP Nocturnal polysomnography was performed for the titration of pressure therapy in this patient with obstructive sleep apnea syndrome. Apnea-hypopnea index 5.4. For testing a Mera and Hayderkel, Eson Nasal 2 device of medium size was used; 5 cm of water pressure were applied circuit and the lights were extinguished. 7 hours and 34 minutes of data were reviewed. There were 315 minutes of sleep identified. Sleep latency was prolonged at 80.5 minutes. Rapid eye movement (REM) latency was prolonged at 118 minutes. Sleep architecture improved with optimal pressure therapy. Overall sleep efficiency was 70.9%. The electrocardiogram showed a sinus rhythm with an average heart rate of 54 beats per minute. Electroencephalogram (EEG) showed normal waveforms for awake and sleep stages. Respiratory events were found best palliated with CPAP at a pressure of +8. Remaining measures of sleep physiology were normal. IMPRESSION: Obstructive sleep apnea syndrome (G47.33). RECOMMENDATIONS: Nightly use of pressure therapy 8 cm of water.
== END ==
LOC: M SLEEP 19:46
PROVIDERS: ATTEND Physician Assistant
DX: R40.0 Somnolence (principal); G47.33 Obstructive sleep apnea (adult) (pediatric)

== ENCOUNTER → 2018-11-27 | Outpatient (CLI) | payer OTHER ==
[~2018-11-27] MED LIST changes: +MECL-68 PO; -MECL1TAB31 PO
--- NOTE | 2018-11-28 12:01 | REP ---
Clinical: Menometrorrhagia. Technique: Transabdominal pelvic ultrasound followed by transvaginal examination for better evaluation of the endometrium and adnexa with color Doppler evaluation of the ovaries. Findings: Bladder is normal and measures 13.0 x 8.5 x 10.3 cm. Heterogeneous anteverted uterus measures 8.2 x 4.2 x 5.6 cm. Endometrial complex measures 2.8 mm thickness. No discrete uterine or endometrial abnormalities appreciated. Bilateral ovaries are normal in appearance and vascularity without torsion. Right ovary measures 3.3 x 2.5 x 2.6 cm (RI 0.27). Left ovary measures 2.2 x 1.8 x 2.4 cm (RI 0.51). No pelvic fluid or adnexal mass lesion. Impression: Mildly heterogeneous anteverted uterus. Otherwise normal pelvic ultrasound. Electronically Signed by Timur Sage MD 11/28/2018 04:56 A
== END ==
LOC: M RAD 11:50
PROVIDERS: ATTEND Obstetrics & Gynecology
DX: N85.4 Malposition of uterus (principal)

== ENCOUNTER 2018-12-03 01:36 | Emergency (ER) | payer OTHER ==
[~2018-12-03] VITALS: Ht 167.6 cm; Wt 68.2 kg
[~2018-12-03 01:36] MED LIST changes: -VITA-157 PO
[2018-12-03] MEDS ORDERED: VITA-157 PO (01:47)
[2018-12-03 02:52] LABS: BASO % 0.8 % (0.0-1.0); EOS % 0.8 % (0.0-3.0); HEMATOCRIT 33.3 % (36.0-47.0); HEMOGLOBIN 10.9 g/dl (12.0-15.5); LYMPH % 42.1 % (24.0-44.0); MEAN CORPUSCULAR HEMOGLOBIN 29.1 pg (27.0-33.0); MEAN CORPUSCULAR HGB CONC 32.7 g/dl (32.0-36.5); MONO # 0.4 10^3/uL (0.0-0.8); NEUTROPHILS # 2.3 10^3/uL (1.5-8.5); NEUTROPHILS % 48.1 % (36.0-66.0); PLATELET COUNT, AUTOMATED 205 10^3/uL (150-450); RED BLOOD COUNT 3.74 10^6/uL (4.00-5.40); WHITE BLOOD COUNT 4.7 10^3/uL (4.0-10.0)
[2018-12-03 03:15] LABS: INR 0.96; PROTHROMBIN TIME 12.5 SECONDS (11.8-14.0)
[2018-12-03 03:16] LABS: PARTIAL THROMBOPLASTIN TIME 30.7 SECONDS (25.0-38.4)
[2018-12-03 03:22] LABS: HCG, SERUM QUALITATIVE NEGATIVE (NEGATIVE)
[2018-12-03 03:31] LABS: BLOOD UREA NITROGEN 8 MG/DL (7-18); CALCIUM LEVEL 8.7 MG/DL (8.5-10.1); CARBON DIOXIDE LEVEL 31 MEQ/L (21-32); CHLORIDE LEVEL 106 MEQ/L (98-107); CK-MB VALUE MASS < 1.0 NG/ML (<3.6); CPK CREATINE PHOSPHOKINASE 67 U/L (26-192); CREATININE FOR GFR 0.57 MG/DL (0.55-1.30); FREE THYROXINE INDEX 2.3 % (1.3-4.8); GLOMERULAR FILTRATION RATE > 60.0 (>60); GLUCOSE, FASTING 88 MG/DL (70-100); MB/CK RELATIVE INDEX 1.49 (< OR =4); POTASSIUM SERUM 3.8 MEQ/L (3.5-5.1); SODIUM LEVEL 142 MEQ/L (136-145); T UPTAKE 36 % (30-39); THYROXINE (T4) 6.4 UG/DL (4.5-12.0); TROPONIN I < 0.02 NG/ML (< 0.10)
[2018-12-03] MEDS ORDERED: ISOVUE-370 76% 100ML VIAL (Q9967) As Ordered ONE (03:39)
[2018-12-03 03:50] VITALS: BP 116/59
--- NOTE | 2018-12-03 06:42 | ECGEPIP ---
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
== END 2018-12-03 04:00 | disposition home or self-care (01) ==
LOC: M ED 01:36
DX: Z86.79 Personal history of other diseases of the circulatory system (principal); F41.9 Anxiety disorder, unspecified; G43.909 Migraine, unspecified, not intractable, without status migrainosus; K58.8 Other irritable bowel syndrome; K21.9 Gastro-esophageal reflux disease without esophagitis; Z87.891 Personal history of nicotine dependence; Z88.8 Allergy status to other drugs, medicaments and biological substances
CPT/HCPCS: 80048; 82550; 82553; 84436; 84443; 84479; 84484; 84703; 85025; 85610; 85730; 93005; 99284; Q9967

== ENCOUNTER → 2018-12-11 | Outpatient (REF) | payer OTHER ==
[~2018-12-11] MED LIST changes: +VITA-157 PO
== END ==
LOC: M LAB REF 17:11
PROVIDERS: ATTEND Obstetrics & Gynecology
DX: N92.0 Excessive and frequent menstruation with regular cycle (principal)

== ENCOUNTER 2019-02-11 07:01 | Emergency (ER) | payer OTHER ==
[~2019-02-11] VITALS: Ht 167.6 cm; Wt 69.2 kg
[2019-02-11] MEDS ORDERED: NS 1,000 ML IV ONE (07:30)
[2019-02-11 07:57] LABS: BASO % 0.9 % (0.0-1.0); EOS # 0.1 10^3/uL (0.0-0.5); EOS % 1.5 % (0.0-3.0); HEMATOCRIT 37.4 % (36.0-47.0); HEMOGLOBIN 11.9 g/dl (12.0-15.5); LYMPH # 1.7 10^3/uL (1.5-5.0); LYMPH % 50.1 % (24.0-44.0); MEAN CORPUSCULAR HEMOGLOBIN 28.6 pg (27.0-33.0); MEAN CORPUSCULAR HGB CONC 31.8 g/dl (32.0-36.5); MEAN CORPUSCULAR VOLUME 89.9 fl (80.0-96.0); MONO # 0.3 10^3/uL (0.0-0.8); MONO % 8.8 % (0.0-5.0); NEUTROPHILS # 1.3 10^3/uL (1.5-8.5); NEUTROPHILS % 38.4 % (36.0-66.0); PLATELET COUNT, AUTOMATED 237 10^3/uL (150-450); RED BLOOD COUNT 4.16 10^6/uL (4.00-5.40); WHITE BLOOD COUNT 3.4 10^3/uL (4.0-10.0)
[2019-02-11 08:27] LABS: ALBUMIN 3.6 GM/DL (3.2-5.2); ALT/SGPT 15 U/L (12-78); BILIRUBIN,DIRECT 0.1 MG/DL (0.0-0.2); BILIRUBIN,TOTAL 0.5 MG/DL (0.2-1.0); BLOOD UREA NITROGEN 12 MG/DL (7-18); CALCIUM LEVEL 8.6 MG/DL (8.5-10.1); CARBON DIOXIDE LEVEL 29 MEQ/L (21-32); CHLORIDE LEVEL 108 MEQ/L (98-107); CK-MB VALUE MASS < 1.0 NG/ML (<3.6); CPK CREATINE PHOSPHOKINASE 90 U/L (26-192); CREATININE FOR GFR 0.78 MG/DL (0.55-1.30); GLOMERULAR FILTRATION RATE > 60.0 (>60); GLUCOSE, FASTING 87 MG/DL (70-100); LIPASE 79 U/L (73-393); MAGNESIUM LEVEL 1.9 MG/DL (1.8-2.4); MB/CK RELATIVE INDEX 1.11 (< OR =4); POTASSIUM SERUM 3.8 MEQ/L (3.5-5.1); SODIUM LEVEL 142 MEQ/L (136-145); TOTAL PROTEIN 6.3 GM/DL (6.4-8.2); TROPONIN I < 0.02 NG/ML (< 0.10)
[2019-02-11 09:03] LABS: HCG, SERUM QUALITATIVE NEGATIVE (NEGATIVE)
[2019-02-11 09:34] VITALS: BP 110/61
--- NOTE | 2019-02-12 07:34 | ECGEPIP ---
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
== END 2019-02-11 09:40 | disposition home or self-care (01) ==
LOC: M ED 07:01
DX: R53.83 Other fatigue (principal); R00.1 Bradycardia, unspecified; E78.5 Hyperlipidemia, unspecified; G47.30 Sleep apnea, unspecified; Z87.891 Personal history of nicotine dependence; Z79.899 Other long term (current) drug therapy; Z91.89 Other specified personal risk factors, not elsewhere classified; Z88.8 Allergy status to other drugs, medicaments and biological substances

== ENCOUNTER → 2019-02-12 | Outpatient (REF) | payer OTHER ==
[2019-02-12 14:26] LABS: BASO % 0.9 % (0.0-1.0); EOS % 1.1 % (0.0-3.0); HEMATOCRIT 40.8 % (36.0-47.0); HEMOGLOBIN 12.7 g/dl (12.0-15.5); LYMPH # 1.5 10^3/uL (1.5-5.0); MEAN CORPUSCULAR HEMOGLOBIN 28.2 pg (27.0-33.0); MEAN CORPUSCULAR HGB CONC 31.1 g/dl (32.0-36.5); MEAN CORPUSCULAR VOLUME 90.7 fl (80.0-96.0); MONO # 0.3 10^3/uL (0.0-0.8); MONO % 8.8 % (0.0-5.0); NEUTROPHILS # 1.7 10^3/uL (1.5-8.5); NEUTROPHILS % 46.9 % (36.0-66.0); PLATELET COUNT, AUTOMATED 274 10^3/uL (150-450); WHITE BLOOD COUNT 3.5 10^3/uL (4.0-10.0)
[2019-02-12 14:43] LABS: C REACTIVE PROTEIN QUANTITATIV < 0.30 MG/DL (0.00-0.30)
[2019-02-12 14:55] LABS: TOTAL 25(OH) VITAMIN D 29.2 NG/ML (30.0-100.0)
[2019-02-12 15:10] LABS: ERYTHROCYTE SEDIMENTATION RATE 7 mm/hr (0-20)
[2019-02-14 00:06] LABS: Lyme Disease IgG/IgM Antibodie <0.91 ISR (0.00-0.90); Lyme Disease IgM Ab Quantitati <0.80 index (0.00-0.79)
== END ==
LOC: M SFHCPLAZ 11:42
PROVIDERS: ATTEND Family Medicine
DX: R52 Pain, unspecified (principal); E55.9 Vitamin D deficiency, unspecified

== ENCOUNTER → 2019-02-13 | Outpatient (CLI) | payer OTHER ==
[2019-02-13 17:54] LABS: BLOOD UREA NITROGEN 11 MG/DL (7-18); CALCIUM LEVEL 9.4 MG/DL (8.5-10.1); CARBON DIOXIDE LEVEL 29 MEQ/L (21-32); CHLORIDE LEVEL 106 MEQ/L (98-107); CHOLESTEROL LEVEL 177 MG/DL (<200); CHOLESTEROL RISK RATIO 3.051 (<5); CREATININE FOR GFR 0.68 MG/DL (0.55-1.30); GLOMERULAR FILTRATION RATE > 60.0 (>60); GLUCOSE, FASTING 89 MG/DL (70-100); HDL CHOLESTEROL 58 MG/DL (>40); LDL CHOLESTEROL 86 MG/DL (<100); NON-HDL-C 119 MG/DL; POTASSIUM SERUM 4.1 MEQ/L (3.5-5.1); SODIUM LEVEL 141 MEQ/L (136-145); TRIGLYCERIDES LEVEL 167 MG/DL (<150); TROPONIN I < 0.02 NG/ML (< 0.10)
== END ==
LOC: M LAB 16:27
PROVIDERS: ATTEND Physician Assistant
DX: R07.9 Chest pain, unspecified (principal); Z13.220 Encounter for screening for lipoid disorders

== ENCOUNTER → 2019-03-22 | Outpatient (REF) | payer OTHER | LOC: M LAB REF 12:44 | PROVIDERS: ATTEND Physician Assistant Medical | DX: J02.9 Acute pharyngitis, unspecified (principal) ==

== ENCOUNTER 2019-05-25 17:10 | Emergency (ER) | payer OTHER ==
[~2019-05-25] VITALS: Ht 167.6 cm; Wt 71.7 kg
[~2019-05-25 17:10] MED LIST changes: -MECL-68 PO; +MECL1TAB31 PO
[2019-05-25] MEDS ORDERED: ASPIRIN 81 MG CHEW TABLET PO ONE (17:30)
[2019-05-25] MEDS ORDERED: elderberry gummy (17:53)
[2019-05-25] MEDS ORDERED: FLUO10CA15 (17:53)
[2019-05-25 18:02] LABS: BASO % 0.8 % (0.0-1.0); EOS # 0.1 10^3/uL (0.0-0.5); EOS % 1.6 % (0.0-3.0); HEMATOCRIT 36.7 % (36.0-47.0); HEMOGLOBIN 12.1 g/dl (12.0-15.5); LYMPH # 1.6 10^3/uL (1.5-5.0); LYMPH % 42.5 % (24.0-44.0); MEAN CORPUSCULAR HEMOGLOBIN 28.7 pg (27.0-33.0); MEAN CORPUSCULAR VOLUME 87.2 fl (80.0-96.0); MONO # 0.2 10^3/uL (0.0-0.8); MONO % 5.7 % (0.0-5.0); NEUTROPHILS # 1.8 10^3/uL (1.5-8.5); NEUTROPHILS % 49.4 % (36.0-66.0); PLATELET COUNT, AUTOMATED 241 10^3/uL (150-450); RED BLOOD COUNT 4.21 10^6/uL (4.00-5.40); WHITE BLOOD COUNT 3.7 10^3/uL (4.0-10.0)
[2019-05-25 18:13] LABS: INR 0.96; PROTHROMBIN TIME 12.4 SECONDS (11.8-14.0)
[2019-05-25 18:14] LABS: PARTIAL THROMBOPLASTIN TIME 30.4 SECONDS (25.0-38.4)
[2019-05-25 18:17] LABS: D-DIMER QUANT < 270 ng/ml (<500)
[2019-05-25 18:31] LABS: ALBUMIN 3.8 GM/DL (3.2-5.2); ALT/SGPT 20 U/L (12-78); BILIRUBIN,DIRECT < 0.1 MG/DL (0.0-0.2); BILIRUBIN,TOTAL 0.2 MG/DL (0.2-1.0); BLOOD UREA NITROGEN 12 MG/DL (7-18); CALCIUM LEVEL 8.4 MG/DL (8.5-10.1); CARBON DIOXIDE LEVEL 29 MEQ/L (21-32); CHLORIDE LEVEL 108 MEQ/L (98-107); CK-MB VALUE MASS < 1.0 NG/ML (<3.6); CPK CREATINE PHOSPHOKINASE 94 U/L (26-192); CREATININE FOR GFR 0.73 MG/DL (0.55-1.30); FREE T4 0.86 NG/DL (0.76-1.46); GLOMERULAR FILTRATION RATE > 60.0 (>60); GLUCOSE, FASTING 137 MG/DL (70-100); LIPASE 103 U/L (73-393); MB/CK RELATIVE INDEX 1.06 (< OR =4); PHOSPHORUS LEVEL 3.1 MG/DL (2.5-4.9); POTASSIUM SERUM 3.9 MEQ/L (3.5-5.1); SODIUM LEVEL 141 MEQ/L (136-145); THYROID STIMULATING HORMONE 0.521 uIU/ML (0.358-3.740); TOTAL PROTEIN 6.4 GM/DL (6.4-8.2); TROPONIN I < 0.02 NG/ML (< 0.10)
[2019-05-25 23:52] LABS: CK-MB VALUE MASS < 1.0 NG/ML (<3.6); CPK CREATINE PHOSPHOKINASE 82 U/L (26-192); MB/CK RELATIVE INDEX 1.22 (< OR =4); TROPONIN I < 0.02 NG/ML (< 0.10)
[2019-05-26 00:05] VITALS: BP 102/64
--- NOTE | 2019-05-26 08:59 | REP ---
PA and lateral chest: Comparison is 09/25/2018. The lung alaniz are clear. The cardiac size is normal. The mary, mediastinum, and skeletal structures are unremarkable. Impression: Negative PA and lateral chest. There is no interval change. Electronically Signed by Jaylon Bell MD 05/26/2019 08:51 A
--- NOTE | 2019-05-26 20:51 | ECGEPIP ---
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
--- NOTE | 2019-05-26 20:54 | ECGEPIP ---
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
== END 2019-05-26 00:34 | disposition home or self-care (01) ==
LOC: M ED 17:10
DX: R00.2 Palpitations (principal); R07.9 Chest pain, unspecified; R94.31 Abnormal electrocardiogram [ECG] [EKG]; Z79.899 Other long term (current) drug therapy; Z87.891 Personal history of nicotine dependence; Z88.8 Allergy status to other drugs, medicaments and biological substances; Z91.048 Other nonmedicinal substance allergy status

== ENCOUNTER → 2019-05-27 | Outpatient (CLI) | payer OTHER ==
[~2019-05-27] MED LIST changes: +FLUO10CA15; +ISOVUE-370 76% 100ML VIAL (Q9967) As Ordered ONE; +elderberry gummy
--- NOTE | 2019-05-27 15:23 | REP ---
CT of the chest with IV contrast, CT pulmonary angiography: Comparison is 09/05/2018. There are no emboli in the pulmonary trunk or central pulmonary arteries. There are no emboli in the pulmonary lobe or segment branches. There are no infiltrates. There are no pleural effusions. There are no masses or nodules. There is no mediastinal or hilar lymph node enlargement. No axillary lymph node enlargement. Thoracic aorta is unremarkable. Cardiac size is normal. No pericardial effusion. The visualized upper abdomen is unremarkable. Impression: There are no pulmonary emboli. There are no infiltrates, pleural effusions, masses, nodules or adenopathy. Negative CT study of the chest. Electronically Signed by Jaylon Bell MD 05/27/2019 03:15 P
== END ==
LOC: M RAD 14:18
PROVIDERS: ATTEND Family Medicine
DX: R06.09 Other forms of dyspnea (principal)
CPT/HCPCS: 71275; Q9967

== ENCOUNTER → 2019-11-20 | Outpatient (REF) | payer OTHER ==
[~2019-11-20] MED LIST changes: -FLUO10CA15; +FLUO10CA16; -ISOVUE-370 76% 100ML VIAL (Q9967) As Ordered ONE; +VITA-243 PO; -VITA500T PO
[2019-11-20 18:46] LABS: FOLATE 12.7 NG/ML; TOTAL 25(OH) VITAMIN D 30.4 NG/ML (30.0-100.0)
== END ==
LOC: M LABDRWAD 16:55
PROVIDERS: ATTEND Physician Assistant Medical
DX: E55.9 Vitamin D deficiency, unspecified (principal); E53.8 Deficiency of other specified B group vitamins; E83.42 Hypomagnesemia

== ENCOUNTER → 2020-01-23 | Outpatient (REF) | payer OTHER ==
[2020-01-24 16:08] LABS: ANTINUCLEAR ANTIBODIES DIRECT Negative (Negative)
== END ==
LOC: M LABDRWAD 12:14
PROVIDERS: ATTEND Physician Assistant Medical
DX: M25.541 Pain in joints of right hand (principal); M25.542 Pain in joints of left hand

== ENCOUNTER → 2020-02-20 | Outpatient (REF) | payer OTHER ==
[2020-02-22 17:06] LABS: Lyme Disease IgG/IgM Antibodie <0.91 ISR (0.00-0.90); Lyme Disease IgM Ab Quantitati <0.80 index (0.00-0.79)
== END ==
LOC: M SFHCADAM 15:59
PROVIDERS: ATTEND Family Medicine
DX: S30.861A Insect bite (nonvenomous) of abdominal wall, initial encounter (principal); W57.XXXA Bitten or stung by nonvenomous insect and other nonvenomous arthropods, initial encounter; Y92.9 Unspecified place or not applicable

== ENCOUNTER → 2020-05-15 | Outpatient (REF) | payer OTHER ==
[2020-05-15 13:12] LABS: BASO % 0.9 % (0.0-1.0); EOS # 0.1 10^3/uL (0.0-0.5); EOS % 1.4 % (0.0-3.0); HEMATOCRIT 37.3 % (36.0-47.0); HEMOGLOBIN 12.2 g/dl (12.0-15.5); LYMPH # 1.7 10^3/uL (1.5-5.0); LYMPH % 47.6 % (24.0-44.0); MEAN CORPUSCULAR HEMOGLOBIN 28.4 pg (27.0-33.0); MEAN CORPUSCULAR HGB CONC 32.7 g/dl (32.0-36.5); MEAN CORPUSCULAR VOLUME 86.7 fl (80.0-96.0); MONO # 0.3 10^3/uL (0.0-0.8); MONO % 7.4 % (2.0-8.0); NEUTROPHILS # 1.5 10^3/uL (1.5-8.5); NEUTROPHILS % 42.4 % (36.0-66.0); PLATELET COUNT, AUTOMATED 257 10^3/uL (150-450); WHITE BLOOD COUNT 3.5 10^3/uL (4.0-10.0)
[2020-05-15 13:13] LABS: APPEARANCE, URINE CLOUDY (CLEAR); BACTERIA, URINE AUTO 1+ (NEGATIVE); BILIRUBIN, URINE AUTO NEGATIVE (NEGATIVE); BLOOD, URINE BLOOD NEGATIVE (NEGATIVE); COLOR, URINE YELLOW (YELLOW); GLUCOSE, URINE (UA) AUTO NEGATIVE (NEGATIVE); KETONE, URINE AUTO TRACE mg/dL (NEGATIVE); LEUKOCYTE ESTERASE, URINE AUTO NEGATIVE (NEGATIVE); MUCUS, URINE SMALL (NEGATIVE); NITRITE, URINE AUTO NEGATIVE (NEGATIVE); PROTEIN, URINE AUTO 1+ mg/dL (NEGATIVE); RBC, URINE AUTO 2 /HPF (0-3); SPECIFIC GRAVITY URINE AUTO 1.024 (1.002-1.035); SQUAMOUS EPITHELIAL CELL UR AU 31 /HPF (0-6); UROBILINOGEN, URINE AUTO 0.2 mg/dL (0.0-2.0); WBC, URINE AUTO 3 /HPF (0-3)
[2020-05-15 13:39] LABS: ALBUMIN 3.7 GM/DL (3.2-5.2); ALT/SGPT 21 U/L (12-78); BILIRUBIN,TOTAL 0.8 MG/DL (0.2-1.0); BLOOD UREA NITROGEN 13 MG/DL (7-18); CARBON DIOXIDE LEVEL 31 MEQ/L (21-32); CHLORIDE LEVEL 102 MEQ/L (98-107); GLOMERULAR FILTRATION RATE > 60.0 (>60); GLUCOSE, FASTING 81 MG/DL (70-100); POTASSIUM SERUM 4.2 MEQ/L (3.5-5.1); SODIUM LEVEL 139 MEQ/L (136-145); TOTAL PROTEIN 6.4 GM/DL (6.4-8.2)
== END ==
LOC: M SFHCADAM 10:54
PROVIDERS: ATTEND Physician Assistant
DX: R10.30 Lower abdominal pain, unspecified (principal)

== ENCOUNTER → 2020-05-15 | Outpatient (CLI) | payer OTHER ==
--- NOTE | 2020-05-15 15:04 | REP ---
INDICATION: LBP M54.5. COMPARISON: None. TECHNIQUE: Five views lumbosacral spine performed. FINDINGS: No compression fracture or malalignment is visualized. There is no spondylolysis or spondylolisthesis. Disc spaces are well preserved. There is mild sclerosis at the facets of L5-S1. The posterior elements are intact. Metallic clips are seen in the right upper quadrant. IMPRESSION: No significant degenerative disc change. There appears to be mild sclerosis at the facets of L5-S1. <Electronically signed by Jaylon Damon > 05/15/20 1500
== END ==
LOC: M ADAMS 11:16
PROVIDERS: ATTEND Physician Assistant
DX: M54.5 Low back pain (principal)

== ENCOUNTER → 2020-05-22 | Outpatient (CLI) | payer OTHER ==
--- NOTE | 2020-05-22 18:56 | REP ---
INDICATION: THORACIC PAIN. COMPARISON: Comparison radiographs are from March 05, 2014.. TECHNIQUE: Three views of the thoracic spine are obtained. FINDINGS: Thoracic vertebral body heights are preserved. Alignment is normal. On lateral radiograph there is mild discogenic spurring anteriorly in the lower thoracic levels. This is slightly more prominent but not new when compared with the 2014 prior study. No fracture or collapse is seen. No paravertebral soft tissue mass is seen. Pedicles and posterior elements are intact. There are surgical clips in the right upper quadrant of the abdomen. Swimmer's lateral view shows degenerative disc disease in the lower cervical spine. IMPRESSION: Degenerative disc changes. No acute bony abnormality. <Electronically signed by Ceferino Hyatt > 05/22/20 [id number]
== END ==
LOC: M ADAMS 13:23
PROVIDERS: ATTEND Physician Assistant Medical
DX: M54.6 Pain in thoracic spine (principal)

== ENCOUNTER → 2020-05-22 | Outpatient (REF) | payer OTHER | LOC: M LABDRWAD 16:30 | PROVIDERS: ATTEND Physician Assistant Medical | DX: E55.9 Vitamin D deficiency, unspecified (principal) ==

== ENCOUNTER → 2020-06-16 | Outpatient (CLI) | payer OTHER ==
[~2020-06-16] MED LIST changes: -VITA-157 PO; +VITAE40CA PO
--- NOTE | 2020-06-16 17:50 | REP ---
INDICATION: LOWER ABD PAIN. COMPARISON: November 27, 2018. TECHNIQUE: Transabdominal and transvaginal scanning were performed. FINDINGS: Uterine dimensions are normal at 9.2 x 5.5 x 6.1 cm. Endometrial echo is 1.4 cm thick and centrally placed. No free fluid is seen in the cul-de-sac. Visualized bladder neumann are smooth. Myometrial texture is somewhat heterogeneous. The right ovary has dimensions of 2.7 x 1.9 x 2.5 cm. It's Doppler flow is normal with a resistive index of 0.45. The left ovary could not be seen today either transabdominally or transvaginally, due to bowel gas. No left adnexal mass or free fluid is seen.. IMPRESSION: Somewhat heterogeneous uterine texture. No focal mass lesion is seen. Normal right ovary. Left ovary not directly visualized.. <Electronically signed by Ceferino Hyatt > 06/16/20 [id number]
== END ==
LOC: M RAD 12:11
PROVIDERS: ATTEND Physician Assistant
DX: R10.30 Lower abdominal pain, unspecified (principal)

== ENCOUNTER → 2020-07-17 | Outpatient (REF) | payer OTHER ==
[~2020-07-17] MED LIST changes: +ALBU8.5H; +ONDA4TAB6 PO
[2020-07-17 13:07] LABS: C REACTIVE PROTEIN QUANTITATIV < 0.30 MG/DL (0.00-0.30); FREE T4 0.79 NG/DL (0.76-1.46); THYROID STIMULATING HORMONE 0.669 uIU/ML (0.358-3.740)
== END ==
LOC: M SFHCADAM 09:01
PROVIDERS: ATTEND Physician Assistant
DX: R63.5 Abnormal weight gain (principal); M54.5 Low back pain

== ENCOUNTER 2020-08-01 21:08 | Emergency (ER) | payer OTHER ==
[~2020-08-01] VITALS: Ht 170.2 cm; Wt 73.9 kg
[~2020-08-01 21:08] MED LIST changes: -ONDA4TAB6 PO
[2020-08-01] MEDS ORDERED: ONDANSETRON 4MG/2ML VIAL IV ONE (22:15)
[2020-08-01] MEDS ORDERED: GI COCKTAIL 50ML BTL(HYOSCYAMINE/MAALOX/LIDOCAINE VISCOUS)(1:3:1) PO ONE (22:15)
[2020-08-01 22:22] LABS: BASO % 0.7 % (0.0-1.0); EOS # 0.1 10^3/uL (0.0-0.5); EOS % 1.7 % (0.0-3.0); HEMATOCRIT 38.1 % (36.0-47.0); HEMOGLOBIN 12.2 g/dl (12.0-15.5); LYMPH % 48.4 % (24.0-44.0); MEAN CORPUSCULAR HEMOGLOBIN 28.2 pg (27.0-33.0); MEAN CORPUSCULAR VOLUME 88.2 fl (80.0-96.0); MONO # 0.4 10^3/uL (0.0-0.8); MONO % 8.6 % (2.0-8.0); NEUTROPHILS # 1.7 10^3/uL (1.5-8.5); NEUTROPHILS % 40.6 % (36.0-66.0); PLATELET COUNT, AUTOMATED 234 10^3/uL (150-450); RED BLOOD COUNT 4.32 10^6/uL (4.00-5.40); WHITE BLOOD COUNT 4.2 10^3/uL (4.0-10.0)
[2020-08-01 22:46] LABS: HCG, SERUM QUALITATIVE NEGATIVE (NEGATIVE)
[2020-08-01 22:49] LABS: ALBUMIN 4.1 GM/DL (3.2-5.2); ALT/SGPT 23 U/L (12-78); BILIRUBIN,DIRECT 0.1 MG/DL (0.0-0.2); BILIRUBIN,TOTAL 0.4 MG/DL (0.2-1.0); CK-MB VALUE MASS < 1.0 NG/ML (<3.6); CPK CREATINE PHOSPHOKINASE 76 U/L (26-192); LIPASE 80 U/L (73-393); MB/CK RELATIVE INDEX 1.32 (< OR =4); TOTAL PROTEIN 6.8 GM/DL (6.4-8.2); TROPONIN I < 0.02 NG/ML (< 0.10)
[2020-08-02] MEDS ORDERED: ONDA4TAB6 PO (00:04)
--- NOTE | 2020-08-02 00:07 | REPVR ---
PROCEDURE INFORMATION: Exam: US Abdomen; Limited Exam date and time: 08/01/2020 11:43 PM Age: 40 years old Clinical indication: Mass, lump, or swelling; Epigastric; Additional info: Painful lump to ventral/epigastric region; ? Hernia TECHNIQUE: Imaging protocol: US abdomen. Real time ultrasound with image documentation. Limited exam focused on the region of clinical interest. COMPARISON: ABD COMPLETE US 08/16/2018 10:23 AM FINDINGS: Soft tissues: Small, non reducible, fat containing ventral abdominal wall hernia, measuring approximately 6 mm at the neck (8 mm with Valsalva). IMPRESSION: Small, non reducible, fat containing ventral abdominal wall hernia, as above. Electronically signed by: Immanuel Larios On 08/02/2020 00:07:12 AM
[2020-08-02 00:30] VITALS: BP 104/66
--- NOTE | 2020-08-02 06:22 | ECGEPIP ---
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
== END 2020-08-02 01:12 | disposition home or self-care (01) ==
LOC: M ED 21:08
DX: K43.9 Ventral hernia without obstruction or gangrene (principal); R11.0 Nausea; R00.1 Bradycardia, unspecified; E78.5 Hyperlipidemia, unspecified; F33.9 Major depressive disorder, recurrent, unspecified; F41.9 Anxiety disorder, unspecified; Z87.891 Personal history of nicotine dependence; Z79.899 Other long term (current) drug therapy
CPT/HCPCS: 76705; 80047; 80076; 81001; 82550; 82553; 83690; 84703; 85025; 93005; 96374; 99284; J2405

== ENCOUNTER → 2020-08-02 | Outpatient (CLI) | payer OTHER ==
[~2020-08-02] MED LIST changes: +ONDA4TAB6 PO
== END ==
LOC: M LABSMTC 09:22
PROVIDERS: ATTEND Anesthesiology
DX: Z01.818 Encounter for other preprocedural examination (principal); Z20.822 Contact with and (suspected) exposure to COVID-19

== ENCOUNTER → 2020-08-14 | Outpatient (CLI) | payer OTHER ==
--- NOTE | 2020-08-14 10:28 | REPVR ---
PROCEDURE INFORMATION: Exam: MR Lumbar Spine Without and With Contrast Exam date and time: 08/14/2020 9:21 AM Age: 40 years old Clinical indication: Other: Specific point tenderness pain for 3mo; Additional info: Lumbar spine pain TECHNIQUE: Imaging protocol: Multiplanar magnetic resonance images of the lumbar spine without and with intravenous contrast. Contrast material: PROHANCE; Contrast volume: 14 ml; Contrast route: INTRAVENOUS (IV); COMPARISON: DX SPINE LS COMPLETE 05/15/2020 11:00 AM FINDINGS: Vertebrae: The lumbar vertebral bodies are normal in height and alignment.No acute fracture or dislocation is seen. No abnormal contrast enhancement is seen. Spinal epidural space: There is no evidence of epidural masses or hemorrhage. Spinal cord: The conus medullaris is normal. The cauda equina nerve roots demonstrate no crowding or displacement. L1-L2: There is no significant degenerative disc herniation.The spinal canal and neural foramina are patent and without significant stenosis. L2-L3: There is no significant degenerative disc herniation.The spinal canal and neural foramina are patent and without significant stenosis. L3-L4: There is no significant degenerative disc herniation.The spinal canal and neural foramina are patent and without significant stenosis. L4-L5: There is no significant degenerative disc herniation.The spinal canal and neural foramina are patent and without significant stenosis. L5-S1: There is no significant degenerative disc herniation.The spinal canal and neural foramina are patent and without significant stenosis. Soft tissues: The prevertebral soft tissues appear normal. IMPRESSION: 1. MRI of the lumbar spine reveals no significant degenerative disc herniation . The spinal canal and neural foramina are patent and without significant stenosis. 2. No abnormal contrast enhancement is seen. Electronically signed by: Andre Benoit On 08/14/2020 10:28:31 AM
== END ==
LOC: M PLARAD 08:14
PROVIDERS: ATTEND Physician Assistant
DX: M54.5 Low back pain (principal)

== ENCOUNTER → 2020-08-26 | Outpatient (REF) | payer OTHER ==
[2020-08-26 13:06] LABS: MAGNESIUM LEVEL 1.9 MG/DL (1.8-2.4)
[2020-08-26 14:03] LABS: TOTAL 25(OH) VITAMIN D 37.1 NG/ML (30.0-100.0)
[2020-08-26 14:05] LABS: FOLATE 12.1 NG/ML
== END ==
LOC: M LABDRWAD 12:18
PROVIDERS: ATTEND Physician Assistant Medical
DX: R51.9 Headache, unspecified (principal); E55.9 Vitamin D deficiency, unspecified; D51.9 Vitamin B12 deficiency anemia, unspecified

== ENCOUNTER → 2020-12-10 | Outpatient (REF) | payer OTHER ==
[~2020-12-10] MED LIST changes: -DOXY100C; +DOXY100C3
== END ==
LOC: M LAB REF 13:57
PROVIDERS: ATTEND Physician Assistant Medical
DX: R19.8 Other specified symptoms and signs involving the digestive system and abdomen (principal)

== ENCOUNTER 2020-12-15 06:23 | Emergency (ER) | payer OTHER ==
[~2020-12-15] VITALS: Ht 167.6 cm; Wt 72.8 kg
[2020-12-15 08:43] LABS: HEMATOCRIT 37.9 % (36.0-47.0); HEMOGLOBIN 12.4 g/dl (12.0-15.5); MEAN CORPUSCULAR HEMOGLOBIN 28.2 pg (27.0-33.0); MEAN CORPUSCULAR HGB CONC 32.7 g/dl (32.0-36.5); MEAN CORPUSCULAR VOLUME 86.1 fl (80.0-96.0); PLATELET COUNT, AUTOMATED 196 10^3/uL (150-450); WHITE BLOOD COUNT 4.7 10^3/uL (4.0-10.0)
[2020-12-15 09:12] LABS: ALBUMIN 3.4 GM/DL (3.2-5.2); ALT/SGPT 22 U/L (12-78); BILIRUBIN,DIRECT 0.2 MG/DL (0.0-0.2); BILIRUBIN,TOTAL 0.7 MG/DL (0.2-1.0); BLOOD UREA NITROGEN 15 MG/DL (7-18); CALCIUM LEVEL 8.2 MG/DL (8.5-10.1); CARBON DIOXIDE LEVEL 24 MEQ/L (21-32); CHLORIDE LEVEL 106 MEQ/L (98-107); CREATININE FOR GFR 0.64 MG/DL (0.55-1.30); GLOMERULAR FILTRATION RATE > 60.0 (>60); GLUCOSE, FASTING 98 MG/DL (70-100); LIPASE 52 U/L (73-393); SODIUM LEVEL 138 MEQ/L (136-145); TOTAL PROTEIN 5.9 GM/DL (6.4-8.2)
[2020-12-15] MEDS ORDERED: ACETAMINOPHEN TAB 650MG DOSE (2X325MG) PO ONE (09:50)
[2020-12-15 10:45] LABS: RSV AMPLIFICATION NEGATIVE (NEGATIVE)
[2020-12-15 11:52] VITALS: BP 113/55
== END 2020-12-15 11:56 | disposition home or self-care (01) ==
LOC: M ED 06:23
DX: A08.11 Acute gastroenteropathy due to Norwalk agent (principal); Z91.048 Other nonmedicinal substance allergy status; Z88.1 Allergy status to other antibiotic agents; Z88.8 Allergy status to other drugs, medicaments and biological substances

== ENCOUNTER → 2020-12-17 | Outpatient (CLI) | payer OTHER ==
[~2020-12-17] MED LIST changes: +GLUCAGON INJ 1MG VIAL As Ordered ONE; +ISOVUE-370 76% 100ML VIAL As Ordered ONE; +NEULUMEX 0.1% SUSPENSION 450ML BOTTLE (FORMERLY VOLUMEN) As Ordered ONE
--- NOTE | 2020-12-17 12:07 | REP ---
INDICATION: LOWER ABD PAIN, DISTENSION. COMPARISON: 03/02/2017 a standard contrast-enhanced CT TECHNIQUE: Standard helical technique after the intravenous administration of contrast using 100 cc Isovue 370 and oral bowel preparatory contrast using 1350 cc of volumen. FINDINGS: The lung bases are stable. The liver, spleen, pancreas, adrenal glands, and kidneys are unchanged and again seen to be within normal limits. The patient is status post cholecystectomy. The abdominal aorta and para-aortic regions are essentially unchanged and are again seen to be within normal limits. There is no evidence of free fluid or free air. There is mesenteric adenopathy with numerous enlarged nodes with the larger nodes having short axis measurements of 1.1 cm. This represents a change from the prior exam. The adenopathy is greatest in the left upper quadrant. There is rather marked colonic redundancy. No abnormal bowel wall thickening is identified. There is minimal potential spiking of the mesenteric side of multiple small bowel loops in the left upper quadrant. There is no rosanne desmoplasia. The osseous structures are stable and intact. IMPRESSION: 1. Mesenteric adenopathy as described above. 2. Mesenteric and small-bowel mucosal changes as described above possibly related there early changes from inflammatory bowel disease. This needs to be correlated clinically with appropriate follow-up. 3. Other findings as described above. <Electronically signed by Cb Newell > 12/17/20 [id number]
== END ==
LOC: M RAD 08:13
PROVIDERS: ATTEND Physician Assistant Medical
DX: R10.30 Lower abdominal pain, unspecified (principal); R19.8 Other specified symptoms and signs involving the digestive system and abdomen; R14.0 Abdominal distension (gaseous)
CPT/HCPCS: 74177; J1610; Q9967

== ENCOUNTER → 2020-12-24 | Outpatient (CLI) | payer OTHER ==
[~2020-12-24] MED LIST changes: +D31000TA2 PO; -FLUO10CA16; +FLUO10CA16 PO; -GLUCAGON INJ 1MG VIAL As Ordered ONE; -ISOVUE-370 76% 100ML VIAL As Ordered ONE; +MAGN200T PO; -NEULUMEX 0.1% SUSPENSION 450ML BOTTLE (FORMERLY VOLUMEN) As Ordered ONE; +SIME125T PO; +VITA400C67 PO
== END ==
LOC: M LABSMTC 11:10
PROVIDERS: ATTEND Anesthesiology
DX: Z01.818 Encounter for other preprocedural examination (principal); Z11.52 Encounter for screening for COVID-19

== ENCOUNTER 2020-12-29 10:31 | Day surgery (SDC) | payer OTHER ==
[~2020-12-29] VITALS: Ht 162.6 cm; Wt 70.3 kg
[~2020-12-29 10:31] MED LIST changes: +NS 1,000 ML IV ONE
[2020-12-29] MEDS ORDERED: propofoL 200 MG/20 ML VIAL As Ordered ONE ×2 (13:21→13:53)
[2020-12-29] MEDS ORDERED: LIDOCAINE 2% 100MG/5ML SDV (FOR ANES.) As Ordered ONE (13:21)
[2020-12-29] MEDS ORDERED: fentaNYL 100 MCG/2 ML INJECTION (J3010) As Ordered ONE (13:22)
--- NOTE | 2020-12-29 13:56 | ROOR ---
Patient Name: Maira Huff Procedure Date: 12/29/2020 1:28 PM Date of : 1980 Age: 40 Room: [facility] Gender: Female Note Status: Finalized Procedure: Upper GI endoscopy Indications: Abdominal pain, Abnormal CT of the GI tract Providers: Clark Crouch MD Referring MD: Taj Morris MD Requesting Provider: Medicines: Monitored Anesthesia Care Complications: No immediate complications. Procedure: Pre-Anesthesia Assessment: - The heart rate, respiratory rate, oxygen saturations, blood pressure, adequacy of pulmonary ventilation, and response to care were monitored throughout the procedure. The Endoscope was introduced through the mouth, and advanced to the second part of duodenum. The upper GI endoscopy was accomplished without difficulty. The patient tolerated the procedure well. Findings: The examined esophagus was normal. Evidence of a fundoplication was found in the cardia. The wrap appeared intact. A single localized erosion was found in the cardia. Biopsies were taken with a cold forceps for histology. Mild gastritis, Biopsies were taken with a cold forceps for histology. The examined duodenum was normal. Biopsies were taken with a cold forceps for histology. Impression: - Normal esophagus. - A fundoplication was found. An 8mm raised scar with erosion/ulceration and visible suture is associated with the fundoplication in the cardia. Biopsied. The wrap appears intact. - Mild gastritis. Biopsied - Normal examined duodenum. Biopsied. Recommendation: - Telephone endoscopist for pathology results in 2 weeks. - Use Prilosec (omeprazole) 20 mg PO daily. - (the script was sent to your pharmacy on file) - Repeat upper endoscopy in 3 months for surveillance. Procedure Code(s): --- Professional --- 75910, Esophagogastroduodenoscopy, flexible, transoral; with biopsy, single or multiple Diagnosis Code(s): --- Professional --- R93.3, Abnormal findings on diagnostic imaging of other parts of digestive tract R10.9, Unspecified abdominal pain K25.9, Gastric ulcer, unspecified as acute or chronic, without hemorrhage or perforation Z98.890, Other specified postprocedural states CPT copyright 2019 [employer]. All rights reserved. The codes documented in this report are preliminary and upon aligner review may be revised to meet current compliance requirements. Clark Crouch MD Clark Crouch MD 12/29/2020 1:55:54 PM Electronically signed by Clark Crouch MD Number of Addenda: 0 Note Initiated On: 12/29/2020 1:28 PM Estimated Blood Loss: Estimated blood loss: none.
--- NOTE | 2020-12-29 14:16 | ROOR ---
Patient Name: Maira Huff Procedure Date: 12/29/2020 1:29 PM Date of : 1980 Age: 40 Room: [facility] Gender: Female Note Status: Finalized Procedure: Colonoscopy Indications: Abnormal CT of the GI tract, Change in bowel habits Providers: Clark Crouch MD Referring MD: Taj Morris MD Requesting Provider: Medicines: Monitored Anesthesia Care Complications: No immediate complications. Procedure: Pre-Anesthesia Assessment: - The heart rate, respiratory rate, oxygen saturations, blood pressure, adequacy of pulmonary ventilation, and response to care were monitored throughout the procedure. The Colonoscope was introduced through the anus and advanced to 15 cm into the ileum. The colonoscopy was performed without difficulty. The patient tolerated the procedure well. The quality of the bowel preparation was good. Findings: The perianal and digital rectal examinations were normal. The terminal ileum appeared normal. The colon (entire examined portion) appeared normal. Biopsies for histology were taken with a cold forceps from the entire colon for evaluation of microscopic colitis. The colon (entire examined portion) was significantly redundant. Impression: - The examined portion of the ileum was normal. - The entire colon is redundant, but otherwise normal. - Biopsies were taken with a cold forceps from the entire colon for evaluation of microscopic colitis. Recommendation: - Telephone endoscopist for pathology results in 2 weeks. Procedure Code(s): --- Professional --- 34385, Colonoscopy, flexible; with biopsy, single or multiple Diagnosis Code(s): --- Professional --- Q43.8, Other specified congenital malformations of intestine R93.3, Abnormal findings on diagnostic imaging of other parts of digestive tract R19.4, Change in bowel habit CPT copyright 2019 [employer]. All rights reserved. The codes documented in this report are preliminary and upon admission discharge rn review may be revised to meet current compliance requirements. Clark Crouch MD Clark Crouch MD 12/29/2020 2:16:24 PM Electronically signed by Clark Crouch MD Number of Addenda: 0 Note Initiated On: 12/29/2020 1:29 PM Estimated Blood Loss: Estimated blood loss: none.
[2020-12-29 14:45] VITALS: BP 106/52
== END 2020-12-29 15:10 | disposition home or self-care (01) ==
LOC: M OPP 10:31
PROVIDERS: ATTEND Internal Medicine Gastroenterology
DX: Q43.8 Other specified congenital malformations of intestine (principal); R93.3 Abnormal findings on diagnostic imaging of other parts of digestive tract; R19.4 Change in bowel habit; R10.84 Generalized abdominal pain; K25.9 Gastric ulcer, unspecified as acute or chronic, without hemorrhage or perforation; Z98.890 Other specified postprocedural states; Z79.899 Other long term (current) drug therapy; Z88.8 Allergy status to other drugs, medicaments and biological substances; Z91.048 Other nonmedicinal substance allergy status
CPT/HCPCS: 43239; 45380; 88305; J3010

== ENCOUNTER → 2021-01-18 | Outpatient (CLI) | payer OTHER ==
[~2021-01-18] MED LIST changes: -NS 1,000 ML IV ONE
--- NOTE | 2021-01-18 17:32 | REP ---
INDICATION: DYSPNEA, UNSPECIFIED. COMPARISON: Multiple the latest 07/28/2020 a portable exam TECHNIQUE: PA and lateral FINDINGS: The cardiomediastinal silhouette is within normal limits. Lung alaniz are clear with the exception of a minimal right CP angle opacity. The osseous structures stable and intact. IMPRESSION: Probable minimal atelectasis in the right CP angle. <Electronically signed by Cb Newell > 01/18/21 [id number]
== END ==
LOC: M ADAMS 13:51
PROVIDERS: ATTEND Nurse Practitioner Family
DX: R06.00 Dyspnea, unspecified (principal)

== ENCOUNTER → 2021-01-27 | Outpatient (CLI) | payer OTHER ==
[~2021-01-27] MED LIST changes: +GASTROGRAFIN SOLUTION 30ML (Q9963) As Ordered ONE; +ISOVUE-370 76% 100ML VIAL As Ordered ONE
--- NOTE | 2021-01-28 15:15 | REP ---
INDICATION: F/U MESENTERIC NODULE. COMPARISON: CT enterography, 12/17/2020. TECHNIQUE: Imaging protocol: Computed tomography of the abdomen and pelvis with oral and with IV contrast. Contiguous 3 mm thick axial projection images were obtained through the abdomen and pelvis. 2D sagittal and coronal reconstructions were performed. Radiation optimization: All CT scans at this facility use at least one of these dose optimization techniques: automated exposure control; mA and/or kV adjustment per patient size (includes targeted exams where dose is matched to clinical indication); or iterative reconstruction. Contrast material: ISOVUE 370; Contrast volume: 100 ml; Contrast route: INTRAVENOUS (IV). FINDINGS: Heart and lung bases: The lung bases are clear. There are no pleural effusions. The heart size is normal. There is no pericardial effusion. Liver: There is a 6 mm in diameter ill-defined low-density area in the right hepatic lobe, most likely a hemangioma. Gallbladder: Surgically absent. Spleen: Normal. Pancreas: Normal. Adrenal glands: Normal. Kidneys/bladder: The kidneys enhance normally. The urinary bladder has a normal unenhanced appearance. Pelvic structures: The anteverted uterus is unremarkable. The ovaries are normal. There is no free fluid the pelvis. There is no pelvic or inguinal lymphadenopathy. GI tract: There is a small hiatal hernia. The appendix is not demonstrated. Abdominal wall and mesentery: There has been interval decrease in the size and number of reactive mesenteric lymph nodes, index node 12 x 5 mm (was 18 x 10 mm). There is no retroperitoneal lymphadenopathy. There is a 10 mm in diameter umbilical hernia containing normal fat. Abdominal aorta and vascular structures: The abdominal aorta, inferior vena cava, and portal venous system are normal. Bony structures: The lumbosacral spine and pelvis are unremarkable. The SI joints and hips are normal. IMPRESSION: 1. Interval decrease in size and number of reactive mesenteric lymph nodes. 2. The small bowel mesentery appears unremarkable. 3. Other findings as noted. <Electronically signed by Jesús Alfaro > 01/28/21 1341
== END ==
LOC: M RAD 13:40
PROVIDERS: ATTEND Internal Medicine Medical Oncology
DX: R19.07 Generalized intra-abdominal and pelvic swelling, mass and lump (principal); K44.0 Diaphragmatic hernia with obstruction, without gangrene
CPT/HCPCS: 74177; Q9963; Q9967

== ENCOUNTER → 2021-02-19 | Outpatient (CLI) | payer OTHER ==
[~2021-02-19] MED LIST changes: +FERR325T3 PO; -GASTROGRAFIN SOLUTION 30ML (Q9963) As Ordered ONE; -ISOVUE-370 76% 100ML VIAL As Ordered ONE; +MUCI600T31 PO; +NAPR-837 PO
[2021-02-19 13:47] LABS: HEMOGLOBIN A1c 5.3 %
[2021-02-19 13:55] LABS: CREATININE, URINE 86.2 MG/DL; MALB URINE SIEMENS 5.8 MG/L; MAU/CREAT RATIO 6.7 MCG/MG (0.0-30.0)
[2021-02-19 13:56] LABS: ALBUMIN 3.6 GM/DL (3.2-5.2); BLOOD UREA NITROGEN 13 MG/DL (7-18); CALCIUM LEVEL 8.7 MG/DL (8.5-10.1); CARBON DIOXIDE LEVEL 29 MEQ/L (21-32); CHLORIDE LEVEL 106 MEQ/L (98-107); CHOLESTEROL LEVEL 197 MG/DL (<200); CHOLESTEROL RISK RATIO 3.456 (<5); GLOMERULAR FILTRATION RATE > 60.0 (>58); GLUCOSE, FASTING 95 MG/DL (70-100); HDL CHOLESTEROL 57 MG/DL (>40); LDL CHOLESTEROL 119 MG/DL (<100); NON-HDL-C 140 MG/DL; PTH INTACT 31.9 PG/ML (18.5-88.0); SODIUM LEVEL 140 MEQ/L (136-145); TOTAL 25(OH) VITAMIN D 38.2 NG/ML (30.0-100.0); TRIGLYCERIDES LEVEL 106 MG/DL (<150)
[2021-02-20 10:09] LABS: H PYLORI SERUM QUANT IgG ABY 0.3 (0.00-0.79); INSULIN LEVEL 31.3 uIU/mL (2.6-24.9)
== END ==
LOC: M PLALAB 11:13
PROVIDERS: ATTEND Family Medicine
DX: E78.2 Mixed hyperlipidemia (principal); E55.9 Vitamin D deficiency, unspecified; R73.01 Impaired fasting glucose; R14.3 Flatulence

== ENCOUNTER 2021-03-19 17:05 | Emergency (ER) | payer OTHER ==
[~2021-03-19] VITALS: Ht 167.6 cm; Wt 76.1 kg
[~2021-03-19 17:05] MED LIST changes: -FLUO10CA16 PO; +FLUO10CA18 PO; -MUCI600T31 PO; -NAPR-837 PO
[2021-03-19] MEDS ORDERED: MUCI600T31 PO (17:15)
[2021-03-19] MEDS ORDERED: KETOROLAC 30 MG/ML 1ML VIAL IV ONE (17:35)
[2021-03-19 17:58] LABS: BASO % 0.7 % (0.0-1.0); EOS # 0.1 10^3/uL (0.0-0.5); EOS % 1.1 % (0.0-3.0); HEMATOCRIT 36.4 % (36.0-47.0); LYMPH # 2.1 10^3/uL (1.5-5.0); LYMPH % 47.4 % (24.0-44.0); MEAN CORPUSCULAR HEMOGLOBIN 28.6 pg (27.0-33.0); MEAN CORPUSCULAR VOLUME 86.9 fl (80.0-96.0); MONO # 0.4 10^3/uL (0.0-0.8); MONO % 8.5 % (2.0-8.0); NEUTROPHILS # 1.9 10^3/uL (1.5-8.5); NEUTROPHILS % 42.1 % (36.0-66.0); PLATELET COUNT, AUTOMATED 298 10^3/uL (150-450); RED BLOOD COUNT 4.19 10^6/uL (4.00-5.40); WHITE BLOOD COUNT 4.5 10^3/uL (4.0-10.0)
[2021-03-19 18:19] LABS: ALBUMIN 3.9 GM/DL (3.2-5.2); ALT/SGPT 19 U/L (12-78); BILIRUBIN,DIRECT < 0.1 MG/DL (0.0-0.2); BILIRUBIN,TOTAL 0.2 MG/DL (0.2-1.0); BLOOD UREA NITROGEN 15 MG/DL (7-18); CALCIUM LEVEL 9.1 MG/DL (8.5-10.1); CARBON DIOXIDE LEVEL 31 MEQ/L (21-32); CHLORIDE LEVEL 104 MEQ/L (98-107); CREATININE FOR GFR 0.64 MG/DL (0.55-1.30); GLOMERULAR FILTRATION RATE > 60.0 (>58); GLUCOSE, FASTING 95 MG/DL (70-100); LIPASE 107 U/L (73-393); NT-PRO BNP 45 PG/ML (<125); POTASSIUM SERUM 3.8 MEQ/L (3.5-5.1); SODIUM LEVEL 140 MEQ/L (136-145); TOTAL PROTEIN 6.9 GM/DL (6.4-8.2)
[2021-03-19 18:21] LABS: CK-MB VALUE MASS < 1.0 NG/ML (<3.6); CPK CREATINE PHOSPHOKINASE 65 U/L (26-192); MB/CK RELATIVE INDEX 1.54 (< OR =4)
[2021-03-19] MEDS ORDERED: ISOVUE-370 76% 100ML VIAL As Ordered ONE (18:25)
[2021-03-19] MEDS ORDERED: GI COCKTAIL 50ML BTL(HYOSCYAMINE/MAALOX/LIDOCAINE VISCOUS)(1:3:1) PO ONE (20:30)
[2021-03-19 21:30] VITALS: BP 126/65
[2021-03-19] MEDS ORDERED: NAPR-837 PO (21:35)
== END 2021-03-19 21:57 | disposition home or self-care (01) ==
LOC: M ED 17:05
DX: R07.9 Chest pain, unspecified (principal); R00.1 Bradycardia, unspecified; G47.30 Sleep apnea, unspecified; F41.9 Anxiety disorder, unspecified; Z88.1 Allergy status to other antibiotic agents; Z88.2 Allergy status to sulfonamides; Z91.048 Other nonmedicinal substance allergy status; Z79.899 Other long term (current) drug therapy
CPT/HCPCS: 71045; 71275; 80048; 80076; 82550; 82553; 83690; 83880; 85025; 93005; 93041; 94760; 96374; 99285; J1885; Q9967

== ENCOUNTER → 2021-05-12 | Outpatient (CLI) | payer OTHER ==
[~2021-05-12] MED LIST changes: +GASTROGRAFIN SOLUTION 30ML (Q9963) As Ordered ONE; +ISOVUE-370 76% 100ML VIAL As Ordered ONE; +MUCI600T31 PO; +NAPR-837 PO
== END ==
LOC: M RAD 12:45
PROVIDERS: ATTEND Internal Medicine Medical Oncology
DX: I88.0 Nonspecific mesenteric lymphadenitis (principal)
CPT/HCPCS: 74177; Q9963; Q9967

== ENCOUNTER → 2021-06-17 | Outpatient (CLI) | payer OTHER ==
[~2021-06-17] MED LIST changes: -D31000TA2 PO; -GASTROGRAFIN SOLUTION 30ML (Q9963) As Ordered ONE; -ISOVUE-370 76% 100ML VIAL As Ordered ONE; +VITA100093 PO
== END ==
LOC: M LABSMTC 11:04
PROVIDERS: ATTEND Anesthesiology
DX: Z01.812 Encounter for preprocedural laboratory examination (principal); Z20.822 Contact with and (suspected) exposure to COVID-19

== ENCOUNTER 2021-06-22 11:55 | Day surgery (SDC) | payer OTHER ==
[~2021-06-22] VITALS: Ht 167.6 cm; Wt 76.1 kg
[~2021-06-22 11:55] MED LIST changes: +LIDOCAINE 2% 100MG/5ML SDV (FOR ANES.) As Ordered ONE; +NS 1,000 ML IV ONE; +fentaNYL 100 MCG/2 ML INJECTION As Ordered ONE; +propofoL 200 MG/20 ML VIAL As Ordered ONE
[2021-06-22 16:15] VITALS: BP 107/58
== END 2021-06-22 16:26 | disposition home or self-care (01) ==
LOC: M OPP 11:55
PROVIDERS: ATTEND Internal Medicine Gastroenterology
DX: K29.70 Gastritis, unspecified, without bleeding (principal); K27.9 Peptic ulcer, site unspecified, unspecified as acute or chronic, without hemorrhage or perforation; Z98.890 Other specified postprocedural states; T81.89XS Other complications of procedures, not elsewhere classified, sequela
CPT/HCPCS: 43239; 88305; 88342; J3010

== ENCOUNTER → 2021-06-29 | Outpatient (CLI) | payer OTHER ==
[~2021-06-29] MED LIST changes: -LIDOCAINE 2% 100MG/5ML SDV (FOR ANES.) As Ordered ONE; -NS 1,000 ML IV ONE; -fentaNYL 100 MCG/2 ML INJECTION As Ordered ONE; -propofoL 200 MG/20 ML VIAL As Ordered ONE
[2021-06-29 12:53] LABS: ALBUMIN 3.7 GM/DL (3.2-5.2); ALT/SGPT 18 U/L (12-78); BILIRUBIN,TOTAL 0.4 MG/DL (0.2-1.0); BLOOD UREA NITROGEN 13 MG/DL (7-18); CALCIUM LEVEL 8.7 MG/DL (8.5-10.1); CARBON DIOXIDE LEVEL 32 MEQ/L (21-32); CHLORIDE LEVEL 106 MEQ/L (98-107); GLOMERULAR FILTRATION RATE > 60.0 (>58); GLUCOSE, FASTING 87 MG/DL (70-100); MAGNESIUM LEVEL 1.7 MG/DL (1.8-2.4); POTASSIUM SERUM 4.2 MEQ/L (3.5-5.1); SODIUM LEVEL 141 MEQ/L (136-145); TOTAL PROTEIN 6.2 GM/DL (6.4-8.2)
[2021-06-29 14:08] LABS: HEMOGLOBIN A1c 5.2 %
[2021-06-30 13:08] LABS: APOLIPOPROTEIN A-1 143 mg/dL (116-209); APOLIPOPROTEIN B 96 mg/dL (<90); APOLIPOPROTEIN B/A-1 RATIO 0.7 ratio (0.0-0.6); INSULIN LEVEL 6.8 uIU/mL (2.6-24.9); TISSUE TRANSGLUTAMINASE IgA <2 U/mL (0-3)
== END ==
LOC: M ADAMS 09:23
PROVIDERS: ATTEND Family Medicine
DX: R73.01 Impaired fasting glucose (principal); E78.2 Mixed hyperlipidemia; R14.3 Flatulence; M19.079 Primary osteoarthritis, unspecified ankle and foot

== ENCOUNTER → 2021-07-23 | Outpatient (CLI) | payer OTHER | LOC: M RAD 07:32 | PROVIDERS: ATTEND Family Medicine | DX: R14.3 Flatulence (principal) | CPT/HCPCS: 78264; A9541 ==

== ENCOUNTER → 2021-08-10 | Outpatient (REF) | payer OTHER ==
[2021-08-10 12:47] LABS: EOS # 0.1 10^3/uL (0.0-0.5); EOS % 2.6 % (0.0-3.0); HEMATOCRIT 39.1 % (36.0-47.0); HEMOGLOBIN 12.3 g/dl (12.0-15.5); LYMPH # 1.5 10^3/uL (1.5-5.0); LYMPH % 48.7 % (24.0-44.0); MEAN CORPUSCULAR HGB CONC 31.5 g/dl (32.0-36.5); MEAN CORPUSCULAR VOLUME 89.1 fl (80.0-96.0); MONO # 0.3 10^3/uL (0.0-0.8); MONO % 8.3 % (2.0-8.0); NEUTROPHILS # 1.2 10^3/uL (1.5-8.5); NEUTROPHILS % 39.1 % (36.0-66.0); PLATELET COUNT, AUTOMATED 242 10^3/uL (150-450); RED BLOOD COUNT 4.39 10^6/uL (4.00-5.40)
[2021-08-10 12:55] LABS: APPEARANCE, URINE HAZY (CLEAR); BACTERIA, URINE AUTO NEGATIVE (NEGATIVE); BILIRUBIN, URINE AUTO NEGATIVE (NEGATIVE); BLOOD, URINE BLOOD NEGATIVE (NEGATIVE); COLOR, URINE YELLOW (YELLOW); GLUCOSE, URINE (UA) AUTO NEGATIVE (NEGATIVE); KETONE, URINE AUTO NEGATIVE (NEGATIVE); LEUKOCYTE ESTERASE, URINE AUTO NEGATIVE (NEGATIVE); MUCUS, URINE SMALL (NEGATIVE); NITRITE, URINE AUTO NEGATIVE (NEGATIVE); PROTEIN, URINE AUTO NEGATIVE (NEGATIVE); RBC, URINE AUTO 1 /HPF (0-3); SPECIFIC GRAVITY URINE AUTO 1.016 (1.002-1.035); SQUAMOUS EPITHELIAL CELL UR AU 14 /HPF (0-6); UROBILINOGEN, URINE AUTO 0.2 mg/dL (0.0-2.0); WBC, URINE AUTO 2 /HPF (0-3)
[2021-08-10 13:21] LABS: TOTAL PROTEIN,RANDOM URINE 12.4 MG/DL (0.0-12.0)
[2021-08-10 13:24] LABS: ALBUMIN 3.9 GM/DL (3.2-5.2); ALT/SGPT 20 U/L (12-78); BILIRUBIN,TOTAL 0.4 MG/DL (0.2-1.0); BLOOD UREA NITROGEN 12 MG/DL (7-18); CALCIUM LEVEL 9.2 MG/DL (8.5-10.1); CARBON DIOXIDE LEVEL 31 MEQ/L (21-32); CHLORIDE LEVEL 107 MEQ/L (98-107); COMPLEMENT C3 83 MG/DL (90-180); COMPLEMENT C4 17 MG/DL (10-40); CREATININE FOR GFR 0.64 MG/DL (0.55-1.30); GLOMERULAR FILTRATION RATE > 60.0 (>58); GLUCOSE, FASTING 67 MG/DL (70-100); POTASSIUM SERUM 4.3 MEQ/L (3.5-5.1); RHEUMATOID FACTOR QUANT < 10.0 IU/ML (<15.0); SODIUM LEVEL 140 MEQ/L (136-145); TOTAL PROTEIN 6.6 GM/DL (6.4-8.2)
[2021-08-10 13:36] LABS: ERYTHROCYTE SEDIMENTATION RATE 7 mm/hr (0-20)
== END ==
LOC: M SFHCRHEU 08:47
PROVIDERS: ATTEND Internal Medicine Rheumatology
DX: M25.641 Stiffness of right hand, not elsewhere classified (principal)

== ENCOUNTER → 2021-09-17 | Outpatient (CLI) | payer OTHER ==
[~2021-09-17] MED LIST changes: +OMEP-173
== END ==
LOC: M WHC 14:41
PROVIDERS: ATTEND Obstetrics & Gynecology
DX: N83.02 Follicular cyst of left ovary (principal)

== ENCOUNTER → 2021-09-17 | Outpatient (CLI) | payer OTHER | LOC: M WHC 10:56 | PROVIDERS: ATTEND Obstetrics & Gynecology | DX: Z53.9 Procedure and treatment not carried out, unspecified reason (principal) ==

== ENCOUNTER → 2021-11-01 | Outpatient (CLI) | payer OTHER ==
[2021-11-01 13:35] LABS: EOS # 0.1 10^3/uL (0.0-0.5); EOS % 1.5 % (0.0-3.0); HEMATOCRIT 38.1 % (36.0-47.0); HEMOGLOBIN 12.2 g/dl (12.0-15.5); LYMPH # 1.7 10^3/uL (1.5-5.0); LYMPH % 42.1 % (24.0-44.0); MEAN CORPUSCULAR HEMOGLOBIN 28.6 pg (27.0-33.0); MEAN CORPUSCULAR VOLUME 89.4 fl (80.0-96.0); MONO # 0.3 10^3/uL (0.0-0.8); MONO % 6.7 % (2.0-8.0); NEUTROPHILS # 1.9 10^3/uL (1.5-8.5); NEUTROPHILS % 48.5 % (36.0-66.0); PLATELET COUNT, AUTOMATED 241 10^3/uL (150-450); RED BLOOD COUNT 4.26 10^6/uL (4.00-5.40)
[2021-11-01 14:46] LABS: ALBUMIN 3.8 GM/DL (3.2-5.2); ALT/SGPT 15 U/L (12-78); BILIRUBIN,TOTAL 0.4 MG/DL (0.2-1.0); BLOOD UREA NITROGEN 12 MG/DL (7-18); CALCIUM LEVEL 8.9 MG/DL (8.5-10.1); CARBON DIOXIDE LEVEL 28 MEQ/L (21-32); CHLORIDE LEVEL 107 MEQ/L (98-107); CREATININE FOR GFR 0.79 MG/DL (0.55-1.30); FREE T4 0.68 NG/DL (0.76-1.46); GLOMERULAR FILTRATION RATE > 60.0 (>58); GLUCOSE, FASTING 90 MG/DL (70-100); IMMUNOGLOBULIN A 84.5 MG/DL (70-400); IMMUNOGLOBULIN E 51.5 IU/ML (<100); IMMUNOGLOBULIN G 785 MG/DL (681-1648); IMMUNOGLOBULIN M 45.3 MG/DL (40-230); POTASSIUM SERUM 4.3 MEQ/L (3.5-5.1); RHEUMATOID FACTOR QUANT < 10.0 IU/ML (<15.0); SODIUM LEVEL 141 MEQ/L (136-145); TOTAL PROTEIN 6.2 GM/DL (6.4-8.2)
== END ==
LOC: M PLALAB 10:54
PROVIDERS: ATTEND Specialist
DX: R59.0 Localized enlarged lymph nodes (principal)

== ENCOUNTER → 2021-11-15 | Outpatient (CLI) | payer OTHER ==
[2021-11-15 13:10] LABS: BASO % 0.9 % (0.0-1.0); EOS # 0.1 10^3/uL (0.0-0.5); EOS % 1.5 % (0.0-3.0); HEMATOCRIT 39.1 % (36.0-47.0); HEMOGLOBIN 12.2 g/dl (12.0-15.5); LYMPH # 1.4 10^3/uL (1.5-5.0); LYMPH % 41.9 % (24.0-44.0); MEAN CORPUSCULAR HEMOGLOBIN 27.7 pg (27.0-33.0); MEAN CORPUSCULAR HGB CONC 31.2 g/dl (32.0-36.5); MEAN CORPUSCULAR VOLUME 88.9 fl (80.0-96.0); MONO # 0.2 10^3/uL (0.0-0.8); NEUTROPHILS # 1.7 10^3/uL (1.5-8.5); NEUTROPHILS % 48.4 % (36.0-66.0); PLATELET COUNT, AUTOMATED 243 10^3/uL (150-450); WHITE BLOOD COUNT 3.4 10^3/uL (4.0-10.0)
[2021-11-15 13:44] LABS: CK-MB VALUE MASS < 1.0 NG/ML (<3.6); CPK CREATINE PHOSPHOKINASE 131 U/L (26-192); MB/CK RELATIVE INDEX 0.76 (< OR =4)
[2021-11-15 14:15] LABS: IMMUNOGLOBULIN A 84.5 MG/DL (70-400); IMMUNOGLOBULIN G 814 MG/DL (681-1648); IMMUNOGLOBULIN M 35.6 MG/DL (40-230); TOTAL PROTEIN 6.3 GM/DL (6.4-8.2)
[2021-11-16 13:07] LABS: ANTINUCLEAR ANTIBODIES DIRECT Negative (Negative)
[2021-11-16 15:44] LABS: ALBUMIN 4.27 GM/DL (3.29-5.55); ALBUMIN % 67.8 % (55.8-66.1); ALPHA-1-GLOBULIN % 3.1 % (2.9-4.9); ALPHA-2-GLOBULINS % 7.9 % (7.1-11.8); BETA-1-GLOBULINS 0.37 GM/DL (0.28-0.60); BETA-1-GLOBULINS % 5.9 % (4.7-7.2); BETA-2-GLOBULINS 0.19 GM/DL (0.19-0.55); GAMMA GLOBULIN % 12.3 % (11.1-18.8); GAMMA GLOBULINS 0.77 GM/DL (0.65-1.58)
== END ==
LOC: M ADAMS 10:26
PROVIDERS: ATTEND Internal Medicine Hematology & Oncology
DX: R59.0 Localized enlarged lymph nodes (principal)

== ENCOUNTER → 2021-11-17 | Outpatient (CLI) | payer OTHER ==
[~2021-11-17] MED LIST changes: +GASTROGRAFIN SOLUTION 30ML (Q9963) As Ordered ONE; +ISOVUE-370 76% 100ML VIAL As Ordered ONE
== END ==
LOC: M RAD 07:28
PROVIDERS: ATTEND Internal Medicine Hematology & Oncology
DX: R59.9 Enlarged lymph nodes, unspecified (principal); K76.0 Fatty (change of) liver, not elsewhere classified
CPT/HCPCS: 74177; Q9963; Q9967

== ENCOUNTER 2021-12-25 07:06 | Emergency (ER) | payer OTHER ==
[~2021-12-25] VITALS: Ht 167.6 cm; Wt 76.8 kg
[~2021-12-25 07:06] MED LIST changes: -GASTROGRAFIN SOLUTION 30ML (Q9963) As Ordered ONE; -ISOVUE-370 76% 100ML VIAL As Ordered ONE
[2021-12-25] MEDS ORDERED: FLUO0.0119 (07:15)
[2021-12-25] MEDS ORDERED: EQL50TAB2 PO (07:16)
[2021-12-25] MEDS ORDERED: ISOVUE-370 76% 100ML VIAL As Ordered ONE (07:35)
[2021-12-25 07:51] LABS: EOS # 0.1 10^3/uL (0.0-0.5); EOS % 1.2 % (0.0-3.0); HEMATOCRIT 38.2 % (36.0-47.0); HEMOGLOBIN 12.3 g/dl (12.0-15.5); LYMPH # 1.8 10^3/uL (1.5-5.0); LYMPH % 42.8 % (24.0-44.0); MEAN CORPUSCULAR HEMOGLOBIN 28.4 pg (27.0-33.0); MEAN CORPUSCULAR HGB CONC 32.2 g/dl (32.0-36.5); MEAN CORPUSCULAR VOLUME 88.2 fl (80.0-96.0); MONO # 0.4 10^3/uL (0.0-0.8); NEUTROPHILS # 1.9 10^3/uL (1.5-8.5); NEUTROPHILS % 45.8 % (36.0-66.0); PLATELET COUNT, AUTOMATED 240 10^3/uL (150-450); RED BLOOD COUNT 4.33 10^6/uL (4.00-5.40); WHITE BLOOD COUNT 4.2 10^3/uL (4.0-10.0)
[2021-12-25 08:19] LABS: INR 0.89; PROTHROMBIN TIME 12.4 SECONDS (12.7-14.5)
[2021-12-25 08:20] LABS: PARTIAL THROMBOPLASTIN TIME 28.7 SECONDS (25.9-37.0)
[2021-12-25 08:55] LABS: RSV AMPLIFICATION NEGATIVE (NEGATIVE)
[2021-12-25 08:59] LABS: CK-MB VALUE MASS < 1.0 NG/ML (<3.6); CPK CREATINE PHOSPHOKINASE 65 U/L (26-192); MB/CK RELATIVE INDEX 1.54 (< OR =4)
[2021-12-25 09:31] LABS: HEMATOCRIT 38.2 % (36.0-47.0)
[2021-12-25 09:43] LABS: FREE T4 0.84 NG/DL (0.76-1.46); THYROID STIMULATING HORMONE 1.19 uIU/ML (0.358-3.740)
[2021-12-25 11:00] VITALS: BP 107/68
[2021-12-25 11:10] LABS: HEMOGLOBIN A1c 5.2 %
== END 2021-12-25 11:18 | disposition home or self-care (01) ==
LOC: M ED 07:06
DX: R00.2 Palpitations (principal); R20.2 Paresthesia of skin; I45.10 Unspecified right bundle-branch block; F41.9 Anxiety disorder, unspecified; F32.A Depression, unspecified; Z87.891 Personal history of nicotine dependence; Z91.048 Other nonmedicinal substance allergy status; Z88.1 Allergy status to other antibiotic agents; Z88.8 Allergy status to other drugs, medicaments and biological substances; Z79.899 Other long term (current) drug therapy
CPT/HCPCS: 36415; 70450; 70496; 70498; 70551; 71045; 80047; 82550; 82553; 82607; 82728; 82747; 83036; 83525; 83625; 84439; 84443; 85025; 85046; 85610; 85730; 86677; 86850; 86900; 86901; 87631; 93005; 93041; 94760; 99285; Q9967

== ENCOUNTER → 2022-01-06 | Outpatient (REF) | payer OTHER ==
[~2022-01-06] MED LIST changes: +EQL50TAB2 PO; +FLUO0.0119
[2022-01-06 13:05] LABS: BASO % 0.8 % (0.0-1.0); EOS % 0.8 % (0.0-3.0); HEMATOCRIT 39.1 % (36.0-47.0); HEMOGLOBIN 12.7 g/dl (12.0-15.5); LYMPH # 1.5 10^3/uL (1.5-5.0); LYMPH % 42.1 % (24.0-44.0); MEAN CORPUSCULAR HEMOGLOBIN 29.1 pg (27.0-33.0); MEAN CORPUSCULAR HGB CONC 32.5 g/dl (32.0-36.5); MEAN CORPUSCULAR VOLUME 89.7 fl (80.0-96.0); MONO # 0.3 10^3/uL (0.0-0.8); MONO % 9.2 % (2.0-8.0); NEUTROPHILS # 1.7 10^3/uL (1.5-8.5); NEUTROPHILS % 47.1 % (36.0-66.0); PLATELET COUNT, AUTOMATED 244 10^3/uL (150-450); RED BLOOD COUNT 4.36 10^6/uL (4.00-5.40); WHITE BLOOD COUNT 3.6 10^3/uL (4.0-10.0)
[2022-01-06 13:11] LABS: HEMATOCRIT 38.1 % (36.0-47.0)
[2022-01-06 13:33] LABS: HEMOGLOBIN A1c 5.2 %
[2022-01-06 14:27] LABS: BLOOD UREA NITROGEN 13 MG/DL (7-18); CALCIUM LEVEL 9.4 MG/DL (8.5-10.1); CARBON DIOXIDE LEVEL 28 MEQ/L (21-32); CHLORIDE LEVEL 106 MEQ/L (98-107); CREATININE FOR GFR 0.78 MG/DL (0.55-1.30); FERRITIN 5 NG/ML (8-252); GLOMERULAR FILTRATION RATE > 60.0 (>58); GLUCOSE, FASTING 89 MG/DL (70-100); PHOSPHORUS LEVEL 3.1 MG/DL (2.5-4.9); POTASSIUM SERUM 4.4 MEQ/L (3.5-5.1); SODIUM LEVEL 140 MEQ/L (136-145)
[2022-01-07 15:30] LABS: VITAMIN B12 LEVEL 266 PG/ML (247-911)
[2022-01-07 20:07] LABS: H PYLORI SERUM QUANT IgG ABY 0.36 (0.00-0.79); INSULIN LEVEL 7.6 uIU/mL (2.6-24.9)
== END ==
LOC: M SFHCPLAZ 07:45
PROVIDERS: ATTEND Family Medicine
DX: D50.9 Iron deficiency anemia, unspecified (principal); E53.8 Deficiency of other specified B group vitamins; R14.3 Flatulence; R73.01 Impaired fasting glucose

== ENCOUNTER → 2022-01-12 | Outpatient (REF) | payer OTHER | LOC: M SFHCWAGY 10:16 | PROVIDERS: ATTEND Obstetrics & Gynecology | DX: Z12.4 Encounter for screening for malignant neoplasm of cervix (principal) ==

== ENCOUNTER → 2022-02-18 | Outpatient (CLI) | payer OTHER ==
[2022-02-18 13:33] LABS: EOS % 0.8 % (0.0-3.0); HEMOGLOBIN 12.1 g/dl (12.0-15.5); LYMPH # 1.8 10^3/uL (1.5-5.0); LYMPH % 46.6 % (24.0-44.0); MEAN CORPUSCULAR HEMOGLOBIN 27.6 pg (27.0-33.0); MEAN CORPUSCULAR VOLUME 88.8 fl (80.0-96.0); MONO # 0.3 10^3/uL (0.0-0.8); MONO % 8.8 % (2.0-8.0); NEUTROPHILS # 1.7 10^3/uL (1.5-8.5); NEUTROPHILS % 42.5 % (36.0-66.0); PLATELET COUNT, AUTOMATED 247 10^3/uL (150-450); RED BLOOD COUNT 4.39 10^6/uL (4.00-5.40); WHITE BLOOD COUNT 3.9 10^3/uL (4.0-10.0)
[2022-02-18 13:48] LABS: ALT/SGPT 14 U/L (7.0-40); BILIRUBIN,TOTAL 0.5 MG/DL (0.3-1.2); BLOOD UREA NITROGEN 13 MG/DL (9-23); CALCIUM LEVEL 9.3 MG/DL (8.5-10.1); CARBON DIOXIDE LEVEL 29 MMOL/L (20-31); CHLORIDE LEVEL 103 MMOL/L (98-107); CREATININE FOR GFR 0.73 MG/DL (0.55-1.30); GLOMERULAR FILTRATION RATE > 60.0 (>58); GLUCOSE, FASTING 87 MG/DL (60-100); LDH LACTATE DEHYDROGENASE 132 U/L (120-246); POTASSIUM SERUM 4.5 MMOL/L (3.5-5.1); SODIUM LEVEL 138 MMOL/L (136-145); TOTAL PROTEIN 6.1 G/DL (5.7-8.2)
== END ==
LOC: M PLALAB 10:26
PROVIDERS: ATTEND Specialist
DX: I88.0 Nonspecific mesenteric lymphadenitis (principal); D72.819 Decreased white blood cell count, unspecified

== ENCOUNTER → 2022-03-02 | Outpatient (CLI) | payer OTHER ==
[~2022-03-02] MED LIST changes: +GNP250TA9 PO
[2022-03-02 10:22] VITALS: BP 124/70
[2022-03-02 10:44] LABS: BASO % 0.9 % (0.0-1.0); EOS % 1.3 % (0.0-3.0); HEMATOCRIT 35.7 % (36.0-47.0); HEMOGLOBIN 11.5 g/dl (12.0-15.5); LYMPH # 1.4 10^3/uL (1.5-5.0); LYMPH % 43.8 % (24.0-44.0); MEAN CORPUSCULAR HEMOGLOBIN 28.3 pg (27.0-33.0); MEAN CORPUSCULAR HGB CONC 32.2 g/dl (32.0-36.5); MEAN CORPUSCULAR VOLUME 87.7 fl (80.0-96.0); MONO # 0.3 10^3/uL (0.0-0.8); MONO % 8.2 % (2.0-8.0); NEUTROPHILS # 1.5 10^3/uL (1.5-8.5); NEUTROPHILS % 45.8 % (36.0-66.0); PLATELET COUNT, AUTOMATED 234 10^3/uL (150-450); RED BLOOD COUNT 4.07 10^6/uL (4.00-5.40); WHITE BLOOD COUNT 3.2 10^3/uL (4.0-10.0)
== END ==
LOC: M IRPRO 09:18
PROVIDERS: ATTEND Internal Medicine
DX: D72.819 Decreased white blood cell count, unspecified (principal)

== ENCOUNTER → 2022-03-04 | Outpatient (CLI) | payer OTHER ==
[2022-03-04 15:34] LABS: HEPATITIS B SURFACE ANTIGEN NEGATIVE (NEGATIVE)
[2022-03-04 15:55] LABS: HEPATITIS B CORE ANTIBODY IGM NEGATIVE (NEGATIVE)
== END ==
LOC: M LABDRWAD 10:00
PROVIDERS: ATTEND Specialist
DX: D70.9 Neutropenia, unspecified (principal); D72.819 Decreased white blood cell count, unspecified; D72.820 Lymphocytosis (symptomatic)

== ENCOUNTER → 2022-03-16 | Outpatient (REF) | payer OTHER ==
[2022-03-16 17:10] LABS: ALBUMIN 3.9 G/DL (3.2-5.2); ALKALINE PHOSPHATASE 45 U/L (46-116); ALT/SGPT 14 U/L (7.0-40); AST/SGOT 18 U/L (<34); BILIRUBIN,TOTAL 0.5 MG/DL (0.3-1.2); BLOOD UREA NITROGEN 11 MG/DL (9-23); CALCIUM LEVEL 9.1 MG/DL (8.5-10.1); CARBON DIOXIDE LEVEL 27 MMOL/L (20-31); CHLORIDE LEVEL 104 MMOL/L (98-107); CREATININE FOR GFR 0.64 MG/DL (0.55-1.30); GLOMERULAR FILTRATION RATE > 60.0 (>58); GLUCOSE, FASTING 66 MG/DL (60-100); POTASSIUM SERUM 4.2 MMOL/L (3.5-5.1); SODIUM LEVEL 138 MMOL/L (136-145); TOTAL PROTEIN 6.5 G/DL (5.7-8.2)
== END ==
LOC: M LABDRWAD 16:10
PROVIDERS: ATTEND Specialist
DX: I88.0 Nonspecific mesenteric lymphadenitis (principal)

== ENCOUNTER → 2022-03-31 | Outpatient (CLI) | payer OTHER ==
[~2022-03-31] MED LIST changes: -ASMA1AER3 INH; +LIDOCAINE 1% MDV 20ML VIAL As Ordered ONE; +MOME13HF5 INH
[2022-03-31 09:55] VITALS: BP 119/64
[2022-03-31 10:14] LABS: BASO % 0.5 % (0.0-1.0); EOS # 0.1 10^3/uL (0.0-0.5); EOS % 1.3 % (0.0-3.0); HEMATOCRIT 35.7 % (36.0-47.0); HEMOGLOBIN 11.3 g/dl (12.0-15.5); LYMPH # 1.5 10^3/uL (1.5-5.0); LYMPH % 36.3 % (24.0-44.0); MEAN CORPUSCULAR HEMOGLOBIN 28.2 pg (27.0-33.0); MEAN CORPUSCULAR HGB CONC 31.7 g/dl (32.0-36.5); MONO # 0.3 10^3/uL (0.0-0.8); MONO % 7.5 % (2.0-8.0); NEUTROPHILS # 2.2 10^3/uL (1.5-8.5); NEUTROPHILS % 54.4 % (36.0-66.0); PLATELET COUNT, AUTOMATED 213 10^3/uL (150-450); RED BLOOD COUNT 4.01 10^6/uL (4.00-5.40)
== END ==
LOC: M IRPRO 08:42
PROVIDERS: ATTEND Internal Medicine Medical Oncology
DX: R59.0 Localized enlarged lymph nodes (principal); D72.819 Decreased white blood cell count, unspecified; D50.9 Iron deficiency anemia, unspecified

== ENCOUNTER → 2022-04-12 | Outpatient (REF) | payer OTHER ==
[~2022-04-12] MED LIST changes: -LIDOCAINE 1% MDV 20ML VIAL As Ordered ONE
== END ==
LOC: M PLALAB 16:10
PROVIDERS: ATTEND Advanced Practice Midwife
DX: Z53.9 Procedure and treatment not carried out, unspecified reason (principal)

== ENCOUNTER → 2022-06-10 | Outpatient (CLI) | payer OTHER ==
[2022-06-10 17:13] LABS: BASO % 0.8 % (0.0-1.0); EOS # 0.1 10^3/uL (0.0-0.5); EOS % 1.4 % (0.0-3.0); HEMATOCRIT 40.3 % (36.0-47.0); HEMOGLOBIN 12.6 g/dl (12.0-15.5); LYMPH # 1.4 10^3/uL (1.5-5.0); MEAN CORPUSCULAR HEMOGLOBIN 28.4 pg (27.0-33.0); MEAN CORPUSCULAR HGB CONC 31.3 g/dl (32.0-36.5); MEAN CORPUSCULAR VOLUME 90.8 fl (80.0-96.0); MONO # 0.3 10^3/uL (0.0-0.8); MONO % 9.3 % (2.0-8.0); NEUTROPHILS # 1.8 10^3/uL (1.5-8.5); NEUTROPHILS % 49.5 % (36.0-66.0); PLATELET COUNT, AUTOMATED 255 10^3/uL (150-450); RED BLOOD COUNT 4.44 10^6/uL (4.00-5.40); WHITE BLOOD COUNT 3.7 10^3/uL (4.0-10.0)
[2022-06-10 17:35] LABS: IRON (FE) 139 UG/DL (50-170); PERCENT SATURATION 52.9 % (13.2-45.0); TOTAL IRON BINDING CAPACITY 263 UG/DL (250-425)
[2022-06-10 17:40] LABS: ALBUMIN 3.9 G/DL (3.2-5.2); ALKALINE PHOSPHATASE 51 U/L (46-116); ALT/SGPT 21 U/L (7.0-40); AST/SGOT 17 U/L (<34); BILIRUBIN,TOTAL 0.5 MG/DL (0.3-1.2); BLOOD UREA NITROGEN 12 MG/DL (9-23); CALCIUM LEVEL 9.1 MG/DL (8.5-10.1); CARBON DIOXIDE LEVEL 30 MMOL/L (20-31); CHLORIDE LEVEL 104 MMOL/L (98-107); CREATININE FOR GFR 0.67 MG/DL (0.55-1.30); FERRITIN 255.2 NG/ML (7.3-270.7); GLOMERULAR FILTRATION RATE > 60.0 (>58); GLUCOSE, FASTING 73 MG/DL (60-100); POTASSIUM SERUM 4.4 MMOL/L (3.5-5.1); SODIUM LEVEL 139 MMOL/L (136-145); TOTAL PROTEIN 6.1 G/DL (5.7-8.2)
== END ==
LOC: M LABDRWAD 11:27
PROVIDERS: ATTEND Nurse Practitioner
DX: C77.9 Secondary and unspecified malignant neoplasm of lymph node, unspecified (principal)

== ENCOUNTER → 2022-06-14 | Outpatient (CLI) | payer OTHER ==
[~2022-06-14] MED LIST changes: +ISOVUE-370 76% 100ML VIAL As Ordered ONE
== END ==
LOC: M RAD 10:49
PROVIDERS: ATTEND Family Medicine
DX: R22.1 Localized swelling, mass and lump, neck (principal)

== ENCOUNTER 2022-08-16 21:46 | Emergency (ER) | payer OTHER ==
[~2022-08-16] VITALS: Ht 167.6 cm; Wt 77.9 kg
[~2022-08-16 21:46] MED LIST changes: -ISOVUE-370 76% 100ML VIAL As Ordered ONE
[2022-08-16 21:48] VITALS: BP 163/86
== END 2022-08-17 01:19 | disposition left against medical advice (07) ==
LOC: M ED 21:46
DX: Z53.21 Procedure and treatment not carried out due to patient leaving prior to being seen by health care provider (principal)

== ENCOUNTER 2022-09-28 10:55 | Emergency (ER) | payer OTHER ==
[~2022-09-28] VITALS: Ht 167.6 cm; Wt 78.2 kg
[2022-09-28] MEDS ORDERED: CYAN-1 PO (11:22)
[2022-09-28 11:33] VITALS: TEMP 98.9
[2022-09-28 11:52] LABS: EOS # 0.1 10^3/uL (0.0-0.5); EOS % 1.3 % (0.0-3.0); HEMATOCRIT 38.3 % (36.0-47.0); HEMOGLOBIN 12.4 g/dl (12.0-15.5); LYMPH # 1.4 10^3/uL (1.5-5.0); LYMPH % 36.4 % (24.0-44.0); MEAN CORPUSCULAR HEMOGLOBIN 28.4 pg (27.0-33.0); MEAN CORPUSCULAR HGB CONC 32.4 g/dl (32.0-36.5); MEAN CORPUSCULAR VOLUME 87.8 fl (80.0-96.0); MONO # 0.3 10^3/uL (0.0-0.8); MONO % 8.1 % (2.0-8.0); NEUTROPHILS # 2.1 10^3/uL (1.5-8.5); NEUTROPHILS % 52.9 % (36.0-66.0); PLATELET COUNT, AUTOMATED 236 10^3/uL (150-450); RED BLOOD COUNT 4.36 10^6/uL (4.00-5.40)
[2022-09-28 12:08] LABS: LIPASE 27 U/L (12-53)
[2022-09-28 12:18] LABS: ALBUMIN 3.7 G/DL (3.2-5.2); ALKALINE PHOSPHATASE 52 U/L (46-116); ALT/SGPT 20 U/L (7.0-40); AST/SGOT 10 U/L (<34); BILIRUBIN,DIRECT < 0.1 MG/DL (<0.4); BILIRUBIN,TOTAL 0.4 MG/DL (0.3-1.2); BLOOD UREA NITROGEN 8 MG/DL (9-23); CALCIUM LEVEL 9.3 MG/DL (8.5-10.1); CARBON DIOXIDE LEVEL 28 MMOL/L (20-31); CHLORIDE LEVEL 106 MMOL/L (98-107); CK-MB VALUE MASS < 1.0 NG/ML (<3.6); CREATININE FOR GFR 0.55 MG/DL (0.55-1.30); FREE T4 0.87 NG/DL (0.89-1.76); GLOMERULAR FILTRATION RATE > 60.0 (>58); GLUCOSE, FASTING 79 MG/DL (60-100); MAGNESIUM LEVEL 1.8 MG/DL (1.8-2.4); POTASSIUM SERUM 4.1 MMOL/L (3.5-5.1); SODIUM LEVEL 137 MMOL/L (136-145); THYROID STIMULATING HORMONE 0.773 uIU/ML (0.55-4.78)
[2022-09-28 12:26] LABS: CPK CREATINE PHOSPHOKINASE 61 U/L (34-145); MB/CK RELATIVE INDEX 1.63 (< OR =4)
[2022-09-28 13:06] LABS: CK-MB VALUE MASS < 1.0 NG/ML (<3.6)
[2022-09-28 13:08] LABS: CPK CREATINE PHOSPHOKINASE 57 U/L (34-145); MB/CK RELATIVE INDEX 1.75 (< OR =4)
[2022-09-28 13:15] LABS: INR 0.91; PARTIAL THROMBOPLASTIN TIME 29.5 SECONDS (24.8-34.2); PROTHROMBIN TIME 12.4 SECONDS (12.5-14.5)
[2022-09-28 14:00] VITALS: BP 96/53; O2SAT 98
== END 2022-09-28 14:08 | disposition home or self-care (01) ==
LOC: M ED 10:55
DX: R07.9 Chest pain, unspecified (principal); K21.9 Gastro-esophageal reflux disease without esophagitis; G43.909 Migraine, unspecified, not intractable, without status migrainosus; Z88.1 Allergy status to other antibiotic agents; Z91.048 Other nonmedicinal substance allergy status; Z79.899 Other long term (current) drug therapy

== ENCOUNTER → 2022-09-29 | Outpatient (CLI) | payer OTHER ==
[~2022-09-29] MED LIST changes: +CYAN-1 PO; +OMEP40CA4 PO; +SUCR1TA PO
== END ==
LOC: M PLARAD 08:43
PROVIDERS: ATTEND Family Medicine
DX: E32.8 Other diseases of thymus (principal)

== ENCOUNTER 2022-10-01 08:28 | Emergency (ER) | payer OTHER ==
[~2022-10-01] VITALS: Ht 167.6 cm; Wt 77.2 kg
[~2022-10-01 08:28] MED LIST changes: -OMEP40CA4 PO; -SUCR1TA PO
[2022-10-01 09:14] LABS: BASO % 0.7 % (0.0-1.0); HEMATOCRIT 38.6 % (36.0-47.0); HEMOGLOBIN 12.6 g/dl (12.0-15.5); LYMPH # 1.5 10^3/uL (1.5-5.0); LYMPH % 36.5 % (24.0-44.0); MEAN CORPUSCULAR HEMOGLOBIN 28.6 pg (27.0-33.0); MEAN CORPUSCULAR HGB CONC 32.6 g/dl (32.0-36.5); MEAN CORPUSCULAR VOLUME 87.5 fl (80.0-96.0); MONO # 0.3 10^3/uL (0.0-0.8); MONO % 7.9 % (2.0-8.0); NEUTROPHILS # 2.2 10^3/uL (1.5-8.5); NEUTROPHILS % 53.7 % (36.0-66.0); PLATELET COUNT, AUTOMATED 240 10^3/uL (150-450); RED BLOOD COUNT 4.41 10^6/uL (4.00-5.40); WHITE BLOOD COUNT 4.1 10^3/uL (4.0-10.0)
[2022-10-01 09:32] LABS: PARTIAL THROMBOPLASTIN TIME 28.1 SECONDS (24.8-34.2)
[2022-10-01 09:36] LABS: LIPASE 24 U/L (12-53)
[2022-10-01 09:37] LABS: ALBUMIN 3.9 G/DL (3.2-5.2); ALKALINE PHOSPHATASE 48 U/L (46-116); ALT/SGPT 18 U/L (7.0-40); AST/SGOT 10 U/L (<34); BILIRUBIN,DIRECT 0.1 MG/DL (<0.4); BILIRUBIN,TOTAL 0.5 MG/DL (0.3-1.2); BLOOD UREA NITROGEN 11 MG/DL (9-23); CALCIUM LEVEL 9.4 MG/DL (8.5-10.1); CARBON DIOXIDE LEVEL 26 MMOL/L (20-31); CHLORIDE LEVEL 105 MMOL/L (98-107); CK-MB VALUE MASS < 1.0 NG/ML (<3.6); CREATININE FOR GFR 0.57 MG/DL (0.55-1.30); GLOMERULAR FILTRATION RATE > 60.0 (>58); GLUCOSE, FASTING 95 MG/DL (60-100); HCG, SERUM QUALITATIVE NEGATIVE (NEGATIVE); POTASSIUM SERUM 3.8 MMOL/L (3.5-5.1); SODIUM LEVEL 139 MMOL/L (136-145); TOTAL PROTEIN 6.3 G/DL (5.7-8.2)
[2022-10-01 09:40] LABS: FREE T4 0.99 NG/DL (0.89-1.76)
[2022-10-01] MEDS ORDERED: SUCRALFATE SUSP 1GM/10ML UD PO ONE (09:40)
[2022-10-01 09:41] LABS: CPK CREATINE PHOSPHOKINASE 63 U/L (34-145); MB/CK RELATIVE INDEX 1.58 (< OR =4)
[2022-10-01] MEDS ORDERED: ISOVUE-370 76% 100ML VIAL As Ordered ONE (10:07)
[2022-10-01 10:39] LABS: CK-MB VALUE MASS < 1.0 NG/ML (<3.6)
[2022-10-01 10:40] LABS: CPK CREATINE PHOSPHOKINASE 57 U/L (34-145); MB/CK RELATIVE INDEX 1.75 (< OR =4)
[2022-10-01 11:09] LABS: INR 0.9; PROTHROMBIN TIME 12.3 SECONDS (12.5-14.5)
[2022-10-01 12:25] LABS: RSV AMPLIFICATION NEGATIVE (NEGATIVE)
[2022-10-01] MEDS ORDERED: SUCR1TA PO (13:48)
[2022-10-01] MEDS ORDERED: OMEP40CA4 PO (13:49)
[2022-10-01 14:08] VITALS: BP 117/61; TEMP 99; O2SAT 100
== END 2022-10-01 14:10 | disposition home or self-care (01) ==
LOC: M ED 08:28
DX: R07.9 Chest pain, unspecified (principal); R00.1 Bradycardia, unspecified; I45.10 Unspecified right bundle-branch block; K21.9 Gastro-esophageal reflux disease without esophagitis; G43.909 Migraine, unspecified, not intractable, without status migrainosus; F17.200 Nicotine dependence, unspecified, uncomplicated; Z91.048 Other nonmedicinal substance allergy status; Z88.1 Allergy status to other antibiotic agents; Z88.8 Allergy status to other drugs, medicaments and biological substances
CPT/HCPCS: 36415; 71045; 80048; 80076; 82550; 82553; 83690; 83880; 84439; 84443; 84703; 85025; 85610; 85730; 87631; 93005; 93041; 94760; 99285; Q9967

== ENCOUNTER 2022-10-09 01:53 | Emergency (ER) | payer OTHER ==
[~2022-10-09] VITALS: Ht 167.6 cm; Wt 76.0 kg
[~2022-10-09 01:53] MED LIST changes: +OMEP40CA4 PO; +SUCR1TA PO
[2022-10-09 01:54] VITALS: BP 131/75; TEMP 98.2; O2SAT 99
== END 2022-10-09 03:19 | disposition left against medical advice (07) ==
LOC: M ED 01:53
DX: Z53.21 Procedure and treatment not carried out due to patient leaving prior to being seen by health care provider (principal)

== ENCOUNTER → 2022-10-12 | Outpatient (CLI) | payer OTHER ==
[2022-10-12 10:49] LABS: CHOLESTEROL RISK RATIO 3.69 (<5); LDL CHOLESTEROL 97.2 MG/DL (<100)
[2022-10-13 14:10] LABS: IgG P18 AB Absent (.); IgG P23 AB Absent (.); IgG P28 AB Absent (.); IgG P30 AB Absent (.); IgG P39 AB Absent (.); IgG P41 AB Absent (.); IgG P45 AB Absent (.); IgG P66 AB Absent (.); IgG P93 AB Absent (.); IgM P23 AB Absent (.); IgM P39 AB Absent (.); IgM P41 AB Absent (.); LYME IgG WB INTERPRETATION Negative (.); LYME IgM WB INTERPRETATION Negative (.)
== END ==
LOC: M PLALAB 08:39
PROVIDERS: ATTEND Nurse Practitioner Adult Health
DX: M25.50 Pain in unspecified joint (principal); Z13.220 Encounter for screening for lipoid disorders

== ENCOUNTER → 2022-10-12 | Outpatient (CLI) | payer OTHER | LOC: M CARPUL 09:46 | PROVIDERS: ATTEND Family Medicine | DX: R07.9 Chest pain, unspecified (principal); R00.2 Palpitations ==

== ENCOUNTER → 2022-11-17 | Outpatient (CLI) | payer OTHER | LOC: M SLEEP 20:00 | PROVIDERS: ATTEND Nurse Practitioner Family | DX: G47.33 Obstructive sleep apnea (adult) (pediatric) (principal) ==

== ENCOUNTER → 2022-12-16 | Outpatient (CLI) | payer OTHER ==
[~2022-12-16] MED LIST changes: +EQL1CAP9 PO; +MAGN500T6 PO; +MECL-209 PO; -MECL1TAB31 PO; +NYST-38 PO
== END ==
LOC: M PLARAD 14:48
PROVIDERS: ATTEND Family Medicine
DX: G90.9 Disorder of the autonomic nervous system, unspecified (principal)

== ENCOUNTER → 2023-01-03 | Outpatient (REF) | payer OTHER ==
[2023-01-03 13:36] LABS: BASO % 1.1 % (0.0-1.0); EOS # 0.5 10^3/uL (0.0-0.5); HEMOGLOBIN 12.4 g/dl (12.0-15.5); LYMPH # 1.7 10^3/uL (1.5-5.0); LYMPH % 46.7 % (24.0-44.0); MEAN CORPUSCULAR HEMOGLOBIN 28.8 pg (27.0-33.0); MEAN CORPUSCULAR HGB CONC 32.6 g/dl (32.0-36.5); MEAN CORPUSCULAR VOLUME 88.4 fl (80.0-96.0); MONO # 0.3 10^3/uL (0.0-0.8); MONO % 7.6 % (2.0-8.0); NEUTROPHILS # 1.2 10^3/uL (1.5-8.5); NEUTROPHILS % 31.6 % (36.0-66.0); PLATELET COUNT, AUTOMATED 236 10^3/uL (150-450); WHITE BLOOD COUNT 3.7 10^3/uL (4.0-10.0)
[2023-01-03 14:17] LABS: IRON (FE) 119 UG/DL (50-170); PERCENT SATURATION 44.1 % (13.2-45.0); TOTAL IRON BINDING CAPACITY 270 UG/DL (250-425)
[2023-01-03 14:18] LABS: ALBUMIN 3.8 G/DL (3.2-5.2); ALKALINE PHOSPHATASE 45 U/L (46-116); ALT/SGPT 15 U/L (7.0-40); AST/SGOT 13 U/L (<34); BILIRUBIN,TOTAL 0.5 MG/DL (0.3-1.2); BLOOD UREA NITROGEN 11 MG/DL (9-23); CALCIUM LEVEL 8.6 MG/DL (8.5-10.1); CARBON DIOXIDE LEVEL 29 MMOL/L (20-31); CHLORIDE LEVEL 108 MMOL/L (98-107); CREATININE FOR GFR 0.66 MG/DL (0.55-1.30); GLOMERULAR FILTRATION RATE > 60.0 (>58); GLUCOSE, FASTING 85 MG/DL (60-100); POTASSIUM SERUM 4.1 MMOL/L (3.5-5.1); SODIUM LEVEL 139 MMOL/L (136-145); TOTAL PROTEIN 5.8 G/DL (5.7-8.2)
[2023-01-03 14:20] LABS: FERRITIN 102.3 NG/ML (7.3-270.7)
== END ==
LOC: M LABDRWAD 13:08
PROVIDERS: ATTEND Nurse Practitioner
DX: I88.0 Nonspecific mesenteric lymphadenitis (principal)

== ENCOUNTER → 2023-01-03 | Outpatient (REF) | payer OTHER ==
[2023-01-03 13:38] LABS: BASO % 0.8 % (0.0-1.0); EOS # 0.5 10^3/uL (0.0-0.5); HEMATOCRIT 37.5 % (36.0-47.0); HEMOGLOBIN 12.3 g/dl (12.0-15.5); LYMPH # 1.7 10^3/uL (1.5-5.0); LYMPH % 46.6 % (24.0-44.0); MEAN CORPUSCULAR HGB CONC 32.8 g/dl (32.0-36.5); MEAN CORPUSCULAR VOLUME 88.4 fl (80.0-96.0); MONO # 0.3 10^3/uL (0.0-0.8); MONO % 7.3 % (2.0-8.0); NEUTROPHILS # 1.1 10^3/uL (1.5-8.5); PLATELET COUNT, AUTOMATED 230 10^3/uL (150-450); RED BLOOD COUNT 4.24 10^6/uL (4.00-5.40); WHITE BLOOD COUNT 3.6 10^3/uL (4.0-10.0)
[2023-01-03 14:16] LABS: LIPASE 31 U/L (12-53)
[2023-01-03 14:19] LABS: ALBUMIN 3.8 G/DL (3.2-5.2); ALKALINE PHOSPHATASE 47 U/L (46-116); ALT/SGPT 22 U/L (7.0-40); AMYLASE 31 U/L (30-118); AST/SGOT 16 U/L (<34); BILIRUBIN,TOTAL 0.5 MG/DL (0.3-1.2); BLOOD UREA NITROGEN 11 MG/DL (9-23); CALCIUM LEVEL 8.8 MG/DL (8.5-10.1); CARBON DIOXIDE LEVEL 29 MMOL/L (20-31); CHLORIDE LEVEL 107 MMOL/L (98-107); CREATININE FOR GFR 0.68 MG/DL (0.55-1.30); GLOMERULAR FILTRATION RATE > 60.0 (>58); GLUCOSE, FASTING 84 MG/DL (60-100); POTASSIUM SERUM 4.2 MMOL/L (3.5-5.1); SODIUM LEVEL 141 MMOL/L (136-145); TOTAL PROTEIN 5.9 G/DL (5.7-8.2)
== END ==
LOC: M LABDRWAD 13:10
PROVIDERS: ATTEND Physician Assistant Medical
DX: R10.13 Epigastric pain (principal)

== ENCOUNTER → 2023-01-04 | Outpatient (REF) | payer OTHER | LOC: M LAB REF 16:47 | PROVIDERS: ATTEND Physician Assistant Medical | DX: K92.1 Melena (principal); B96.81 Helicobacter pylori [H. pylori] as the cause of diseases classified elsewhere ==

== ENCOUNTER → 2023-01-16 | Outpatient (CLI) | payer OTHER ==
[2023-01-16 12:56] LABS: BASO % 0.8 % (0.0-1.0); EOS # 0.2 10^3/uL (0.0-0.5); EOS % 4.7 % (0.0-3.0); HEMATOCRIT 39.7 % (36.0-47.0); HEMOGLOBIN 13.1 g/dl (12.0-15.5); LYMPH # 1.7 10^3/uL (1.5-5.0); LYMPH % 47.9 % (24.0-44.0); MEAN CORPUSCULAR HEMOGLOBIN 28.7 pg (27.0-33.0); MEAN CORPUSCULAR VOLUME 87.1 fl (80.0-96.0); MONO # 0.3 10^3/uL (0.0-0.8); MONO % 7.2 % (2.0-8.0); NEUTROPHILS # 1.4 10^3/uL (1.5-8.5); NEUTROPHILS % 39.1 % (36.0-66.0); PLATELET COUNT, AUTOMATED 251 10^3/uL (150-450); RED BLOOD COUNT 4.56 10^6/uL (4.00-5.40); WHITE BLOOD COUNT 3.6 10^3/uL (4.0-10.0)
[2023-01-16 13:21] LABS: IMMUNOGLOBULIN A 86.3 MG/DL (40-350); IMMUNOGLOBULIN M 27.8 MG/DL (50-300)
== END ==
LOC: M LAB 11:15
PROVIDERS: ATTEND Family Medicine
DX: R76.8 Other specified abnormal immunological findings in serum (principal); D72.819 Decreased white blood cell count, unspecified

== ENCOUNTER → 2023-01-23 | Outpatient (REF) | payer OTHER | LOC: M SFHCPLAZ 10:52 | PROVIDERS: ATTEND Family Medicine | DX: Z53.9 Procedure and treatment not carried out, unspecified reason (principal) ==

== ENCOUNTER 2023-03-03 13:01 | Day surgery (SDC) | payer OTHER ==
[~2023-03-03] VITALS: Ht 167.6 cm; Wt 73.0 kg
[~2023-03-03 13:01] MED LIST changes: +CARA1TAB6 PO; +K2 P1TAB PO
[2023-03-03] MEDS ORDERED: LIDOCAINE 2% 100MG/5ML SDV (FOR ANES.) As Ordered ONE (14:59)
[2023-03-03] MEDS ORDERED: propofoL 200 MG/20 ML VIAL As Ordered ONE (14:59)
[2023-03-03 15:06] VITALS: TEMP 97
[2023-03-03 15:24] VITALS: BP 105/61; O2SAT 99
== END 2023-03-03 15:27 | disposition home or self-care (01) ==
LOC: M OPP 13:01
PROVIDERS: ATTEND Internal Medicine Gastroenterology
DX: Z98.890 Other specified postprocedural states (principal); R10.10 Upper abdominal pain, unspecified; Z87.891 Personal history of nicotine dependence; Z79.83 Long term (current) use of bisphosphonates; Z79.899 Other long term (current) drug therapy; Z88.1 Allergy status to other antibiotic agents; Z91.048 Other nonmedicinal substance allergy status

== ENCOUNTER → 2023-03-15 | Outpatient (CLI) | payer OTHER ==
[~2023-03-15] MED LIST changes: +FERR325T3
[2023-03-15 16:52] LABS: CPK CREATINE PHOSPHOKINASE 68 U/L (34-145)
[2023-03-15 16:55] LABS: RHEUMATOID FACTOR QUANT < 3.5 IU/ML (<14); VITAMIN B12 LEVEL 343 PG/ML (211-911)
[2023-03-15 16:56] LABS: FOLATE 11.11 NG/ML (>5.4)
[2023-03-15 16:57] LABS: HEMOGLOBIN A1c 5.1 % (4.0-6.0); THYROID STIMULATING HORMONE 0.789 uIU/ML (0.55-4.78)
== END ==
LOC: M PLALAB 13:45
PROVIDERS: ATTEND Psychiatry & Neurology Neurology
DX: E11.9 Type 2 diabetes mellitus without complications (principal); M62.838 Other muscle spasm

== ENCOUNTER → 2023-05-04 | Outpatient (REF) | payer OTHER ==
[2023-05-04 14:34] LABS: BASO % 1.4 % (0.0-1.0); EOS # 0.1 10^3/uL (0.0-0.5); EOS % 2.4 % (0.0-3.0); HEMATOCRIT 39.4 % (36.0-47.0); HEMOGLOBIN 12.7 g/dl (12.0-15.5); LYMPH # 1.5 10^3/uL (1.5-5.0); MEAN CORPUSCULAR HEMOGLOBIN 28.5 pg (27.0-33.0); MEAN CORPUSCULAR HGB CONC 32.2 g/dl (32.0-36.5); MEAN CORPUSCULAR VOLUME 88.3 fl (80.0-96.0); MONO # 0.2 10^3/uL (0.0-0.8); MONO % 7.1 % (2.0-8.0); NEUTROPHILS # 1.1 10^3/uL (1.5-8.5); NEUTROPHILS % 37.8 % (36.0-66.0); PLATELET COUNT, AUTOMATED 259 10^3/uL (150-450); RED BLOOD COUNT 4.46 10^6/uL (4.00-5.40); WHITE BLOOD COUNT 2.9 10^3/uL (4.0-10.0)
[2023-05-04 14:35] LABS: C REACTIVE PROTEIN QUANTITATIV < 0.40 MG/DL (<1.0)
[2023-05-04 14:36] LABS: LDH LACTATE DEHYDROGENASE 122 U/L (120-246)
[2023-05-04 14:37] LABS: ALKALINE PHOSPHATASE 41 U/L (46-116); ALT/SGPT 15 U/L (7.0-40); AST/SGOT 12 U/L (<34); BILIRUBIN,TOTAL 0.4 MG/DL (0.3-1.2); BLOOD UREA NITROGEN 14 MG/DL (9-23); CALCIUM LEVEL 8.8 MG/DL (8.5-10.1); CARBON DIOXIDE LEVEL 30 MMOL/L (20-31); CHLORIDE LEVEL 106 MMOL/L (98-107); CPK CREATINE PHOSPHOKINASE 66 U/L (34-145); CREATININE FOR GFR 0.68 MG/DL (0.55-1.30); GLOMERULAR FILTRATION RATE > 60.0 (>58); GLUCOSE, FASTING 88 MG/DL (60-100); POTASSIUM SERUM 4.1 MMOL/L (3.5-5.1); SODIUM LEVEL 141 MMOL/L (136-145); TOTAL PROTEIN 6.1 G/DL (5.7-8.2)
[2023-05-04 14:38] LABS: COMPLEMENT C3 74.8 MG/DL (90.0-170.0); COMPLEMENT C4 13.7 MG/DL (12-36)
[2023-05-04 14:43] LABS: ERYTHROCYTE SEDIMENTATION RATE 6 mm/hr (0-20)
[2023-05-04 14:54] LABS: AMORPHOUS SEDIMENT SMALL (NEGATIVE); APPEARANCE, URINE CLOUDY (CLEAR); BACTERIA, URINE AUTO NEGATIVE (NEGATIVE); BILIRUBIN, URINE AUTO NEGATIVE (NEGATIVE); BLOOD, URINE BLOOD NEGATIVE (NEGATIVE); COLOR, URINE YELLOW (YELLOW); GLUCOSE, URINE (UA) AUTO NEGATIVE (NEGATIVE); KETONE, URINE AUTO NEGATIVE (NEGATIVE); LEUKOCYTE ESTERASE, URINE AUTO NEGATIVE (NEGATIVE); MUCUS, URINE SMALL (NEGATIVE); NITRITE, URINE AUTO NEGATIVE (NEGATIVE); PROTEIN, URINE AUTO 1+ mg/dL (NEGATIVE); RBC, URINE AUTO 0 /HPF (0-3); SPECIFIC GRAVITY URINE AUTO 1.019 (1.002-1.035); SQUAMOUS EPITHELIAL CELL UR AU 12 /HPF (0-6); UROBILINOGEN, URINE AUTO 0.2 mg/dL (0.0-2.0); WBC, URINE AUTO 0 /HPF (0-3)
[2023-05-04 15:20] LABS: TOTAL PROTEIN,RANDOM URINE 20.4 MG/DL (0.0-14.0)
[2023-05-04 15:24] LABS: CREATININE,RANDOM URINE 176.2 MG/DL
[2023-05-05 15:07] LABS: ALDOLASE 2.9 U/L (3.3-10.3)
== END ==
LOC: M SFHCRHEU 08:17
PROVIDERS: ATTEND Internal Medicine Rheumatology
DX: D70.8 Other neutropenia (principal); Z92.89 Personal history of other medical treatment; R21 Rash and other nonspecific skin eruption; R25.3 Fasciculation; M35.3 Polymyalgia rheumatica

== ENCOUNTER → 2023-09-18 | Outpatient (CLI) | payer OTHER ==
[~2023-09-18] MED LIST changes: +FLUO-290 PO; -FLUO10CA18 PO; +ONDA-282 PO; -ONDA4TAB6 PO; +PROB250C PO
[2023-09-18 12:55] LABS: EOS # 0.1 10^3/uL (0.0-0.5); EOS % 1.8 % (0.0-3.0); HEMATOCRIT 39.5 % (36.0-47.0); HEMOGLOBIN 13.1 g/dl (12.0-15.5); LYMPH # 1.7 10^3/uL (1.5-5.0); LYMPH % 43.8 % (24.0-44.0); MEAN CORPUSCULAR HEMOGLOBIN 29.1 pg (27.0-33.0); MEAN CORPUSCULAR HGB CONC 33.2 g/dl (32.0-36.5); MEAN CORPUSCULAR VOLUME 87.8 fl (80.0-96.0); MONO # 0.4 10^3/uL (0.0-0.8); MONO % 9.4 % (2.0-8.0); NEUTROPHILS # 1.7 10^3/uL (1.5-8.5); PLATELET COUNT, AUTOMATED 246 10^3/uL (150-450); WHITE BLOOD COUNT 3.8 10^3/uL (4.0-10.0)
[2023-09-18 13:24] LABS: ALBUMIN 4.2 G/DL (3.2-5.2); ALKALINE PHOSPHATASE 47 U/L (46-116); ALT/SGPT 17 U/L (7.0-40); AST/SGOT 9 U/L (<34); BILIRUBIN,TOTAL 0.4 MG/DL (0.3-1.2); BLOOD UREA NITROGEN 11 MG/DL (9-23); CALCIUM LEVEL 9.1 MG/DL (8.5-10.1); CARBON DIOXIDE LEVEL 29 MMOL/L (20-31); CHLORIDE LEVEL 105 MMOL/L (98-107); CREATININE FOR GFR 0.72 MG/DL (0.55-1.30); GLOMERULAR FILTRATION RATE > 60.0 (>58); GLUCOSE, FASTING 80 MG/DL (60-100); IRON (FE) 101 UG/DL (50-170); PERCENT SATURATION 32.7 % (13.2-45.0); POTASSIUM SERUM 4.2 MMOL/L (3.5-5.1); SODIUM LEVEL 138 MMOL/L (136-145); TOTAL IRON BINDING CAPACITY 309 UG/DL (250-425); TOTAL PROTEIN 6.3 G/DL (5.7-8.2)
[2023-09-18 13:27] LABS: FERRITIN 30.3 NG/ML (7.3-270.7)
== END ==
LOC: M LAB 12:05
PROVIDERS: ATTEND Nurse Practitioner
DX: D50.9 Iron deficiency anemia, unspecified (principal)

== ENCOUNTER → 2023-09-20 | Outpatient (CLI) | payer OTHER | LOC: M LAB 11:48 | PROVIDERS: ATTEND Physician Assistant Medical | DX: R07.9 Chest pain, unspecified (principal) ==

== ENCOUNTER → 2023-10-31 | Outpatient (CLI) | payer OTHER ==
[2023-10-31 18:48] LABS: ALBUMIN 3.9 G/DL (3.2-5.2); ALKALINE PHOSPHATASE 48 U/L (46-116); ALT/SGPT 16 U/L (7.0-40); AST/SGOT 11 U/L (<34); BILIRUBIN,TOTAL 0.5 MG/DL (0.3-1.2); BLOOD UREA NITROGEN 12 MG/DL (9-23); CALCIUM LEVEL 9.1 MG/DL (8.5-10.1); CARBON DIOXIDE LEVEL 28 MMOL/L (20-31); CHLORIDE LEVEL 106 MMOL/L (98-107); CREATININE FOR GFR 0.72 MG/DL (0.55-1.30); GLOMERULAR FILTRATION RATE > 60.0 (>58); GLUCOSE, FASTING 74 MG/DL (60-100); SODIUM LEVEL 138 MMOL/L (136-145)
[2023-10-31 18:59] LABS: BASO # 0.1 10^3/uL (0.0-0.2); BASO % 1.1 % (0.0-1.0); EOS # 0.1 10^3/uL (0.0-0.5); EOS % 1.3 % (0.0-3.0); HEMATOCRIT 39.6 % (36.0-47.0); HEMOGLOBIN 12.6 g/dl (12.0-15.5); LYMPH # 1.7 10^3/uL (1.5-5.0); LYMPH % 35.9 % (24.0-44.0); MEAN CORPUSCULAR HEMOGLOBIN 28.2 pg (27.0-33.0); MEAN CORPUSCULAR HGB CONC 31.8 g/dl (32.0-36.5); MEAN CORPUSCULAR VOLUME 88.6 fl (80.0-96.0); MONO # 0.4 10^3/uL (0.0-0.8); MONO % 8.8 % (2.0-8.0); NEUTROPHILS # 2.5 10^3/uL (1.5-8.5); NEUTROPHILS % 52.7 % (36.0-66.0); PLATELET COUNT, AUTOMATED 268 10^3/uL (150-450); RED BLOOD COUNT 4.47 10^6/uL (4.00-5.40); WHITE BLOOD COUNT 4.7 10^3/uL (4.0-10.0)
== END ==
LOC: M WUC 12:40
PROVIDERS: ATTEND Physician Assistant
DX: R19.7 Diarrhea, unspecified (principal); R00.2 Palpitations

== ENCOUNTER → 2023-12-05 | Outpatient (CLI) | payer OTHER ==
[2023-12-05 15:32] LABS: PERCENT SATURATION 38.6 % (13.2-45.0)
[2023-12-05 15:33] LABS: COMPLEMENT C3 90.1 MG/DL (90.0-170.0); COMPLEMENT C4 15.9 MG/DL (12-36)
[2023-12-05 15:39] LABS: TOTAL 25(OH) VITAMIN D 33.5 NG/ML (20.0-100.0)
[2023-12-07 02:57] LABS: IgG P18 AB NON-REACTIVE; IgG P23 AB NON-REACTIVE; IgG P28 AB NON-REACTIVE; IgG P30 AB NON-REACTIVE; IgG P39 AB NON-REACTIVE; IgG P41 AB NON-REACTIVE; IgG P45 AB NON-REACTIVE; IgG P58 AB NON-REACTIVE; IgG P66 AB NON-REACTIVE; IgG P93 AB NON-REACTIVE; IgM P23 AB NON-REACTIVE; IgM P39 AB NON-REACTIVE; IgM P41 AB NON-REACTIVE; LYME IgG WB INTERPRETATION NEGATIVE (NEGATIVE); LYME IgM WB INTERPRETATION NEGATIVE (NEGATIVE)
[2023-12-08 20:56] LABS: COMPLEMENT TOTAL (CH50) 59 U/mL (31-60)
[2023-12-10 16:48] LABS: VITAMIN B1 LEVEL WHOLE BLOOD 80 nmol/L (78-185)
== END ==
LOC: M PLALAB 10:27
PROVIDERS: ATTEND Internal Medicine Infectious Disease
DX: R53.82 Chronic fatigue, unspecified (principal); R77.8 Other specified abnormalities of plasma proteins

== ENCOUNTER → 2023-12-07 | Outpatient (CLI) | payer OTHER ==
[2023-12-07 17:00] LABS: ALBUMIN 4.2 G/DL (3.2-5.2); ALKALINE PHOSPHATASE 51 U/L (46-116); ALT/SGPT 22 U/L (7.0-40); AST/SGOT 13 U/L (<34); BILIRUBIN,TOTAL 0.5 MG/DL (0.3-1.2); BLOOD UREA NITROGEN 12 MG/DL (9-23); CALCIUM LEVEL 9.5 MG/DL (8.5-10.1); CARBON DIOXIDE LEVEL 26 MMOL/L (20-31); CHLORIDE LEVEL 107 MMOL/L (98-107); CREATININE FOR GFR 0.69 MG/DL (0.55-1.30); GLOMERULAR FILTRATION RATE > 60.0 (>58); GLUCOSE, FASTING 106 MG/DL (60-100); PHOSPHORUS LEVEL 3.6 MG/DL (2.5-4.9); POTASSIUM SERUM 4.2 MMOL/L (3.5-5.1); SODIUM LEVEL 138 MMOL/L (136-145); TOTAL PROTEIN 6.6 G/DL (5.7-8.2)
[2023-12-07 17:04] LABS: TOTAL 25(OH) VITAMIN D 36.2 NG/ML (20.0-100.0)
== END ==
LOC: M LAB 15:57
PROVIDERS: ATTEND Psychiatry & Neurology Neurology
DX: M62.838 Other muscle spasm (principal)

== ENCOUNTER → 2023-12-19 | Outpatient (REF) | payer OTHER | LOC: M SFHCPLAZ 19:43 | PROVIDERS: ATTEND Family Medicine | DX: Z53.20 Procedure and treatment not carried out because of patient's decision for unspecified reasons (principal) ==

== ENCOUNTER → 2023-12-21 | Outpatient (REF) | payer OTHER ==
[2023-12-21 13:28] LABS: HEMATOCRIT 40.3 % (36.0-47.0)
[2023-12-21 13:29] LABS: BASO # 0.1 10^3/uL (0.0-0.2); BASO % 1.4 % (0.0-1.0); EOS % 0.8 % (0.0-3.0); HEMATOCRIT 40.2 % (36.0-47.0); HEMOGLOBIN 13.2 g/dl (12.0-15.5); LYMPH # 1.5 10^3/uL (1.5-5.0); LYMPH % 40.8 % (24.0-44.0); MEAN CORPUSCULAR HEMOGLOBIN 28.6 pg (27.0-33.0); MEAN CORPUSCULAR HGB CONC 32.8 g/dl (32.0-36.5); MEAN CORPUSCULAR VOLUME 87.2 fl (80.0-96.0); MONO # 0.4 10^3/uL (0.0-0.8); MONO % 10.2 % (2.0-8.0); NEUTROPHILS # 1.7 10^3/uL (1.5-8.5); NEUTROPHILS % 46.5 % (36.0-66.0); PLATELET COUNT, AUTOMATED 288 10^3/uL (150-450); RED BLOOD COUNT 4.61 10^6/uL (4.00-5.40); WHITE BLOOD COUNT 3.6 10^3/uL (4.0-10.0)
[2023-12-21 13:52] LABS: TOTAL PROTEIN,RANDOM URINE 24.8 MG/DL (0.0-14.0)
[2023-12-21 13:56] LABS: CREATININE,RANDOM URINE 219.5 MG/DL
[2023-12-21 13:59] LABS: ALBUMIN 4.3 G/DL (3.2-5.2); ALKALINE PHOSPHATASE 49 U/L (46-116); ALT/SGPT 15 U/L (7.0-40); AST/SGOT < 8 U/L (<34); BILIRUBIN,TOTAL 0.4 MG/DL (0.3-1.2); BLOOD UREA NITROGEN 12 MG/DL (9-23); CARBON DIOXIDE LEVEL 27 MMOL/L (20-31); CHLORIDE LEVEL 105 MMOL/L (98-107); CHOLESTEROL LEVEL 154 MG/DL (<200); CHOLESTEROL RISK RATIO 3.62 (<5); CREATININE FOR GFR 0.83 MG/DL (0.55-1.30); FREE T4 1.35 NG/DL (0.89-1.76); GLOMERULAR FILTRATION RATE > 60.0 (>58); GLUCOSE, FASTING 88 MG/DL (60-100); HDL CHOLESTEROL 42.5 MG/DL (>40); LDL CHOLESTEROL 97.9 MG/DL (<100); NON-HDL-C 111.5 MG/DL; POTASSIUM SERUM 4.2 MMOL/L (3.5-5.1); PTH INTACT 37.6 PG/ML (18.5-88.0); SODIUM LEVEL 136 MMOL/L (136-145); THYROID STIMULATING HORMONE 1.088 uIU/ML (0.55-4.78); TOTAL PROTEIN 6.5 G/DL (5.7-8.2); TRIGLYCERIDES LEVEL 68 MG/DL (<150)
[2023-12-21 14:01] LABS: FERRITIN 46.5 NG/ML (7.3-270.7); TOTAL 25(OH) VITAMIN D 47.4 NG/ML (20.0-100.0)
== END ==
LOC: M SFHCPLAZ 08:04
PROVIDERS: ATTEND Family Medicine
DX: D50.9 Iron deficiency anemia, unspecified (principal); E53.8 Deficiency of other specified B group vitamins; E78.2 Mixed hyperlipidemia; E55.9 Vitamin D deficiency, unspecified; G25.3 Myoclonus

== ENCOUNTER → 2024-02-27 | Outpatient (CLI) | payer OTHER ==
[2024-02-27 14:36] LABS: BASO % 0.7 % (0.0-1.0); EOS % 0.5 % (0.0-3.0); HEMATOCRIT 41.7 % (36.0-47.0); HEMOGLOBIN 13.1 g/dl (12.0-15.5); LYMPH # 1.4 10^3/uL (1.5-5.0); LYMPH % 23.8 % (24.0-44.0); MEAN CORPUSCULAR HEMOGLOBIN 28.1 pg (27.0-33.0); MEAN CORPUSCULAR HGB CONC 31.4 g/dl (32.0-36.5); MEAN CORPUSCULAR VOLUME 89.3 fl (80.0-96.0); MONO # 0.4 10^3/uL (0.0-0.8); MONO % 7.6 % (2.0-8.0); NEUTROPHILS # 3.8 10^3/uL (1.5-8.5); NEUTROPHILS % 67.2 % (36.0-66.0); PLATELET COUNT, AUTOMATED 317 10^3/uL (150-450); RED BLOOD COUNT 4.67 10^6/uL (4.00-5.40); WHITE BLOOD COUNT 5.7 10^3/uL (4.0-10.0)
[2024-02-27 15:00] LABS: FERRITIN 18.9 NG/ML (7.3-270.7)
[2024-03-04 14:43] LABS: SOLUBLE TRANSFERRIN RECEPTOR 1.08 mg/L (0.76-1.76)
== END ==
LOC: M PLALAB 10:03
PROVIDERS: ATTEND Family Medicine
DX: E53.8 Deficiency of other specified B group vitamins (principal); E51.9 Thiamine deficiency, unspecified

== ENCOUNTER → 2024-04-21 | Outpatient (CLI) | payer OTHER ==
[~2024-04-21] MED LIST changes: +ALPR0.25
[2024-04-21 16:20] LABS: BASO # 0.1 10^3/uL (0.0-0.2); BASO % 1.1 % (0.0-1.0); EOS # 0.1 10^3/uL (0.0-0.5); EOS % 1.1 % (0.0-3.0); HEMATOCRIT 38.6 % (36.0-47.0); HEMOGLOBIN 12.7 g/dl (12.0-15.5); LYMPH # 1.8 10^3/uL (1.5-5.0); LYMPH % 40.8 % (24.0-44.0); MEAN CORPUSCULAR HEMOGLOBIN 29.1 pg (27.0-33.0); MEAN CORPUSCULAR HGB CONC 32.9 g/dl (32.0-36.5); MEAN CORPUSCULAR VOLUME 88.3 fl (80.0-96.0); MONO # 0.5 10^3/uL (0.0-0.8); MONO % 10.1 % (2.0-8.0); NEUTROPHILS # 2.1 10^3/uL (1.5-8.5); NEUTROPHILS % 46.7 % (36.0-66.0); PLATELET COUNT, AUTOMATED 304 10^3/uL (150-450); RED BLOOD COUNT 4.37 10^6/uL (4.00-5.40); WHITE BLOOD COUNT 4.5 10^3/uL (4.0-10.0)
[2024-04-21 16:52] LABS: ALBUMIN 3.8 G/DL (3.2-5.2); ALKALINE PHOSPHATASE 49 U/L (35-104); ALT/SGPT 19 U/L (7.0-40); AST/SGOT 14 U/L (<34); BILIRUBIN,TOTAL 0.4 MG/DL (0.3-1.2); BLOOD UREA NITROGEN 15 MG/DL (9-23); CALCIUM LEVEL 9.1 MG/DL (8.5-10.1); CARBON DIOXIDE LEVEL 29 MMOL/L (20-31); CHLORIDE LEVEL 107 MMOL/L (98-107); GLOMERULAR FILTRATION RATE > 60.0 (>58); GLUCOSE, FASTING 83 MG/DL (60-100); IRON (FE) 111 UG/DL (50-170); PERCENT SATURATION 36.3 % (13.2-45.0); POTASSIUM SERUM 4.6 MMOL/L (3.5-5.1); SODIUM LEVEL 141 MMOL/L (136-145); TOTAL IRON BINDING CAPACITY 306 UG/DL (250-425); TOTAL PROTEIN 6.5 G/DL (5.7-8.2)
[2024-04-21 16:54] LABS: FERRITIN 17.7 NG/ML (7.3-270.7); VITAMIN B12 LEVEL 1278 PG/ML (211-911)
== END ==
LOC: M LAB 15:54
PROVIDERS: ATTEND Internal Medicine Medical Oncology
DX: D50.9 Iron deficiency anemia, unspecified (principal)

== ENCOUNTER → 2024-05-05 | Outpatient (REF) | payer OTHER ==
[2024-05-05 20:21] LABS: Trichomonas vaginalis (AMP) NOT DETECTED (NEGATIVE)
[2024-05-05 20:46] LABS: GC DNA AMPLIFICATION NEGATIVE (NEGATIVE)
== END ==
LOC: M LAB REF 18:43
PROVIDERS: ATTEND Registered Nurse
DX: A64 Unspecified sexually transmitted disease (principal)

== ENCOUNTER → 2024-05-05 | Outpatient (REF) | payer OTHER | LOC: M LAB REF 19:10 | PROVIDERS: ATTEND Registered Nurse | DX: N39.0 Urinary tract infection, site not specified (principal) ==

== ENCOUNTER 2024-05-22 10:20 | Day surgery (SDC) | payer OTHER ==
[~2024-05-22] VITALS: Ht 167.6 cm; Wt 65.9 kg
[~2024-05-22 10:20] MED LIST changes: +ACETAMINOPHEN 1000MG/100ML IV BAG As Ordered ONE; +CYAN1000VL SQ; +LIDOCAINE 2% 100MG/5ML SDV (FOR ANES.) As Ordered ONE; +MIDAZOLAM INJ 2MG/2ML VIAL As Ordered ONE; +ONDANSETRON 4MG 2ML VIAL As Ordered ONE; +ROCURONIUM BROMIDE 50MG/5ML VIAL As Ordered ONE; +SUGAMMADEX SODIUM 500 MG/5 ML VIAL (BRIDION) As Ordered ONE; +fentaNYL 100 MCG/2 ML INJECTION As Ordered ONE; +propofoL 200 MG/20 ML VIAL As Ordered ONE
[2024-05-22] MEDS ORDERED: LIDOCAINE 1% SDV 5ML VIAL SC PRN (10:25)
[2024-05-22] MEDS: LR 1,000 ML IV SCH (10:58)
[2024-05-22 11:19] LABS: HEMATOCRIT 39.6 % (36.0-47.0); MEAN CORPUSCULAR HEMOGLOBIN 29.1 pg (27.0-33.0); MEAN CORPUSCULAR HGB CONC 32.8 g/dl (32.0-36.5); MEAN CORPUSCULAR VOLUME 88.6 fl (80.0-96.0); PLATELET COUNT, AUTOMATED 274 10^3/uL (150-450); RED BLOOD COUNT 4.47 10^6/uL (4.00-5.40); WHITE BLOOD COUNT 5.1 10^3/uL (4.0-10.0)
[2024-05-22] MEDS: SCOPOLAMINE 1MG TRANSDERMAL PATCH As Ordered ONE (11:45)
[2024-05-22] MEDS ORDERED: GLYCOPYRROLATE INJ 0.2 MG/ML 2 ML VIAL As Ordered ONE (12:27)
[2024-05-22] MEDS ORDERED: HYDROMORPHONE HCL 0.5 MG/ 0.5 ML SYRINGE IV PRN (12:45)
[2024-05-22] MEDS ORDERED: LR 1,000 ML IV SCH (12:45)
[2024-05-22] MEDS ORDERED: fentaNYL 100 MCG/2 ML INJECTION IV PRN (12:45)
[2024-05-22] MEDS ORDERED: oxyCODONE 5MG TAB PO PRN (12:45)
[2024-05-22] MEDS ORDERED: ONDANSETRON 4MG 2ML VIAL IV PRN (12:45)
[2024-05-22 14:20] VITALS: BP 120/62; TEMP 97.5; O2SAT 99
== END 2024-05-22 14:28 | disposition home or self-care (01) ==
LOC: M SDC 10:20
PROVIDERS: ATTEND Obstetrics & Gynecology
DX: N93.9 Abnormal uterine and vaginal bleeding, unspecified (principal); Z30.2 Encounter for sterilization; Z87.891 Personal history of nicotine dependence; G47.33 Obstructive sleep apnea (adult) (pediatric); Z79.899 Other long term (current) drug therapy; Z88.8 Allergy status to other drugs, medicaments and biological substances; Z88.1 Allergy status to other antibiotic agents
CPT/HCPCS: 36415; 58563; 58661; 81025; 85027; 86850; 86900; 86901; 88302; 88305; J0131; J0665; J1596; J2250; J2405; J3010

== ENCOUNTER → 2024-07-02 | Outpatient (CLI) | payer OTHER ==
[~2024-07-02] MED LIST changes: -ACETAMINOPHEN 1000MG/100ML IV BAG As Ordered ONE; -FLUO0.0119; +FLUO0.0126; -LIDOCAINE 2% 100MG/5ML SDV (FOR ANES.) As Ordered ONE; -MIDAZOLAM INJ 2MG/2ML VIAL As Ordered ONE; -ONDANSETRON 4MG 2ML VIAL As Ordered ONE; -ROCURONIUM BROMIDE 50MG/5ML VIAL As Ordered ONE; -SUGAMMADEX SODIUM 500 MG/5 ML VIAL (BRIDION) As Ordered ONE; -fentaNYL 100 MCG/2 ML INJECTION As Ordered ONE; -propofoL 200 MG/20 ML VIAL As Ordered ONE
[2024-07-02 15:47] LABS: EOS # 0.1 10^3/uL (0.0-0.5); EOS % 1.2 % (0.0-3.0); HEMATOCRIT 40.6 % (36.0-47.0); HEMOGLOBIN 13.1 g/dl (12.0-15.5); LYMPH # 1.6 10^3/uL (1.5-5.0); LYMPH % 38.6 % (24.0-44.0); MEAN CORPUSCULAR HEMOGLOBIN 29.3 pg (27.0-33.0); MEAN CORPUSCULAR HGB CONC 32.3 g/dl (32.0-36.5); MEAN CORPUSCULAR VOLUME 90.8 fl (80.0-96.0); MONO # 0.4 10^3/uL (0.0-0.8); MONO % 9.2 % (2.0-8.0); NEUTROPHILS # 2.1 10^3/uL (1.5-8.5); NEUTROPHILS % 49.8 % (36.0-66.0); PLATELET COUNT, AUTOMATED 270 10^3/uL (150-450); RED BLOOD COUNT 4.47 10^6/uL (4.00-5.40); WHITE BLOOD COUNT 4.1 10^3/uL (4.0-10.0)
[2024-07-02 16:20] LABS: FERRITIN 26.3 NG/ML (7.3-270.7); TOTAL 25(OH) VITAMIN D 28.4 NG/ML (20.0-100.0)
== END ==
LOC: M PLALAB 13:04
PROVIDERS: ATTEND Family Medicine
DX: D50.9 Iron deficiency anemia, unspecified (principal); E53.8 Deficiency of other specified B group vitamins; E55.9 Vitamin D deficiency, unspecified; E51.9 Thiamine deficiency, unspecified

== ENCOUNTER → 2024-08-14 | Outpatient (REF) | payer OTHER ==
[2024-08-14 18:22] LABS: ALBUMIN 3.9 G/DL (3.2-5.2); ALKALINE PHOSPHATASE 39 U/L (35-104); ALT/SGPT 11 U/L (7.0-40); AST/SGOT 13 U/L (<34); BILIRUBIN,TOTAL 0.6 MG/DL (0.3-1.2); BLOOD UREA NITROGEN 18 MG/DL (9-23); CALCIUM LEVEL 8.7 MG/DL (8.5-10.1); CARBON DIOXIDE LEVEL 28 MMOL/L (20-31); CHLORIDE LEVEL 105 MMOL/L (98-107); CREATININE FOR GFR 0.71 MG/DL (0.55-1.30); GLOMERULAR FILTRATION RATE > 90.0 (>58); GLUCOSE, FASTING 85 MG/DL (60-100); IRON (FE) 133 UG/DL (50-170); PERCENT SATURATION 42.8 % (13.2-45.0); POTASSIUM SERUM 4.2 MMOL/L (3.5-5.1); SODIUM LEVEL 139 MMOL/L (136-145); TOTAL IRON BINDING CAPACITY 311 UG/DL (250-425); TOTAL PROTEIN 6.4 G/DL (5.7-8.2)
[2024-08-14 18:24] LABS: FERRITIN 20.6 NG/ML (7.3-270.7)
[2024-08-14 18:25] LABS: VITAMIN B12 LEVEL 638 PG/ML (211-911)
[2024-08-14 18:26] LABS: BASO % 0.7 % (0.0-1.0); EOS # 0.1 10^3/uL (0.0-0.5); EOS % 2.2 % (0.0-3.0); HEMATOCRIT 38.6 % (36.0-47.0); HEMOGLOBIN 12.5 g/dl (12.0-15.5); LYMPH # 1.6 10^3/uL (1.5-5.0); LYMPH % 29.3 % (24.0-44.0); MEAN CORPUSCULAR HEMOGLOBIN 29.5 pg (27.0-33.0); MEAN CORPUSCULAR HGB CONC 32.4 g/dl (32.0-36.5); MONO # 0.6 10^3/uL (0.0-0.8); MONO % 10.5 % (2.0-8.0); NEUTROPHILS # 3.2 10^3/uL (1.5-8.5); NEUTROPHILS % 57.1 % (36.0-66.0); PLATELET COUNT, AUTOMATED 254 10^3/uL (150-450); RED BLOOD COUNT 4.24 10^6/uL (4.00-5.40); WHITE BLOOD COUNT 5.5 10^3/uL (4.0-10.0)
== END ==
LOC: M LABDRWAD 17:54
PROVIDERS: ATTEND Nurse Practitioner
DX: D50.9 Iron deficiency anemia, unspecified (principal)

== ENCOUNTER → 2024-10-30 | Outpatient (REF) | payer OTHER ==
[~2024-10-30] MED LIST changes: +B-1100TA2; -EQL50TAB2 PO; -PROZ20CA11 PO; +PROZ20CA12 PO; +VITA1TAB82 PO
[2024-10-30 18:57] LABS: ALT/SGPT 18 U/L (7.0-40); AST/SGOT 18 U/L (<34); CALCIUM LEVEL 9.0 MG/DL (8.5-10.1); CARBON DIOXIDE LEVEL 28 MMOL/L (20-31); CHLORIDE LEVEL 102 MMOL/L (98-107); CREATININE FOR GFR 0.67 MG/DL (0.55-1.30); GLOMERULAR FILTRATION RATE > 90.0 (>58); IRON (FE) 161 UG/DL (50-170); PERCENT SATURATION 50.2 % (13.2-45.0); POTASSIUM SERUM 4.3 MMOL/L (3.5-5.1); SODIUM LEVEL 140 MMOL/L (136-145)
[2024-10-30 19:00] LABS: BASO # 0.0 10^3/uL (0.0-0.2); BASO % 0.7 % (0.0-1.0); EOS # 0.1 10^3/uL (0.0-0.5); EOS % 2.1 % (0.0-3.0); LYMPH # 2.1 10^3/uL (1.5-5.0); LYMPH % 37.2 % (24.0-44.0); MONO # 0.4 10^3/uL (0.0-0.8); MONO % 7.7 % (2.0-8.0); NEUTROPHILS # 2.9 10^3/uL (1.5-8.5); NEUTROPHILS % 52.1 % (36.0-66.0); PLATELET COUNT, AUTOMATED 266 10^3/uL (150-450)
[2024-10-30 19:04] LABS: VITAMIN B12 LEVEL > 2000 PG/ML (211-911)
== END ==
LOC: M LABDRWAD 18:09
PROVIDERS: ATTEND Nurse Practitioner
DX: I89.0 Lymphedema, not elsewhere classified (principal)

== ENCOUNTER → 2024-11-06 | Outpatient (CLI) | payer OTHER | LOC: M WHC 07:21 | DX: R59.0 Localized enlarged lymph nodes (principal) ==

== ENCOUNTER → 2024-12-03 | Outpatient (REF) | payer OTHER ==
[2024-12-03 16:27] LABS: APPEARANCE, URINE CLEAR (CLEAR); BACTERIA, URINE AUTO NEGATIVE (NEGATIVE); BILIRUBIN, URINE AUTO NEGATIVE (NEGATIVE); BLOOD, URINE BLOOD NEGATIVE (NEGATIVE); GLUCOSE, URINE (UA) AUTO NEGATIVE (NEGATIVE); KETONE, URINE AUTO NEGATIVE (NEGATIVE); LEUKOCYTE ESTERASE, URINE AUTO NEGATIVE (NEGATIVE); NITRITE, URINE AUTO NEGATIVE (NEGATIVE); PROTEIN, URINE AUTO NEGATIVE (NEGATIVE); RBC, URINE AUTO 1 /HPF (0-3); SPECIFIC GRAVITY URINE AUTO 1.014 (1.002-1.035); SQUAMOUS EPITHELIAL CELL UR AU 2 /HPF (0-6); UROBILINOGEN, URINE AUTO 0.2 mg/dL (0.0-2.0); WBC, URINE AUTO 1 /HPF (0-3)
[2024-12-04 15:35] LABS: BVAB 2 NEGATIVE (NEGATIVE)
[2024-12-04 15:42] LABS: CANDIDA GLABRATA NAA DETECTED (NOT DETECTED); TRICH VAG BY NAA NOT DETECTED (NOT DETECTED)
[2024-12-04 18:37] LABS: CHLAMYDIA TRACHOMATIS NAA NOT DETECTED (NOT DETECTED)
== END ==
LOC: M SFHCWAGY 15:22
PROVIDERS: ATTEND Obstetrics & Gynecology
DX: R30.0 Dysuria (principal); N76.0 Acute vaginitis

== ENCOUNTER → 2025-01-17 | Outpatient (CLI) | payer OTHER ==
[2025-01-17 17:50] LABS: BASO # 0.0 10^3/uL (0.0-0.2); BASO % 0.7 % (0.0-1.0); EOS # 0.1 10^3/uL (0.0-0.5); EOS % 1.6 % (0.0-3.0); LYMPH # 2.0 10^3/uL (1.5-5.0); LYMPH % 34.4 % (24.0-44.0); MONO # 0.5 10^3/uL (0.0-0.8); MONO % 8.1 % (2.0-8.0); NEUTROPHILS # 3.1 10^3/uL (1.5-8.5); NEUTROPHILS % 54.8 % (36.0-66.0); PLATELET COUNT, AUTOMATED 293 10^3/uL (150-450)
[2025-01-17 18:17] LABS: PTH INTACT 26.5 PG/ML (18.5-88.0)
[2025-01-17 18:18] LABS: TOTAL 25(OH) VITAMIN D 27.5 NG/ML (20.0-100.0); VITAMIN B12 LEVEL 412.0 PG/ML (211-911)
== END ==
LOC: M LABDRWAD 12:15
PROVIDERS: ATTEND Family Medicine
DX: D50.9 Iron deficiency anemia, unspecified (principal); E53.8 Deficiency of other specified B group vitamins; E51.9 Thiamine deficiency, unspecified; E55.9 Vitamin D deficiency, unspecified

== ENCOUNTER → 2025-02-15 | Outpatient (REF) | payer OTHER | LOC: M LAB REF 17:57 | PROVIDERS: ATTEND Physician Assistant Medical | DX: R30.0 Dysuria (principal); N39.0 Urinary tract infection, site not specified ==

== ENCOUNTER → 2025-02-20 | Outpatient (CLI) | payer OTHER ==
[~2025-02-20] MED LIST changes: -PROZ20CA12 PO; +PROZ20CA25 PO
[2025-02-20 13:00] LABS: PLATELET COUNT, AUTOMATED 307 10^3/uL (150-450)
[2025-02-20 13:28] LABS: ALT/SGPT 15 U/L (7.0-40); AST/SGOT 13 U/L (<34); CALCIUM LEVEL 9.1 MG/DL (8.5-10.1); CARBON DIOXIDE LEVEL 30 MMOL/L (20-31); CHLORIDE LEVEL 108 MMOL/L (98-107); CREATININE FOR GFR 0.72 MG/DL (0.55-1.30); GLOMERULAR FILTRATION RATE > 90.0 (>58); POTASSIUM SERUM 4.5 MMOL/L (3.5-5.1); SODIUM LEVEL 142 MMOL/L (136-145)
[2025-02-20 13:29] LABS: INR 0.89
== END ==
LOC: M LAB 12:08
DX: F10.10 Alcohol abuse, uncomplicated (principal); R74.8 Abnormal levels of other serum enzymes

== ENCOUNTER → 2025-02-21 | Outpatient (CLI) | payer OTHER ==
[~2025-02-21] MED LIST changes: +PROZ20CA12 PO; -PROZ20CA25 PO
== END ==
LOC: M WHC 09:57
DX: R74.8 Abnormal levels of other serum enzymes (principal); K76.0 Fatty (change of) liver, not elsewhere classified; Z90.49 Acquired absence of other specified parts of digestive tract

== ENCOUNTER → 2025-03-04 | Outpatient (REF) | payer OTHER ==
[~2025-03-04] MED LIST changes: -PROZ20CA12 PO; +PROZ20CA25 PO
[2025-03-04 15:26] LABS: APPEARANCE, URINE HAZY (CLEAR); BACTERIA, URINE AUTO 3+ (NEGATIVE); BILIRUBIN, URINE AUTO NEGATIVE (NEGATIVE); BLOOD, URINE BLOOD NEGATIVE (NEGATIVE); GLUCOSE, URINE (UA) AUTO NEGATIVE (NEGATIVE); KETONE, URINE AUTO NEGATIVE (NEGATIVE); LEUKOCYTE ESTERASE, URINE AUTO NEGATIVE (NEGATIVE); MUCUS, URINE SMALL (NEGATIVE); NITRITE, URINE AUTO POSITIVE (NEGATIVE); PROTEIN, URINE AUTO NEGATIVE (NEGATIVE); RBC, URINE AUTO 0 /HPF (0-3); SPECIFIC GRAVITY URINE AUTO 1.017 (1.002-1.035); SQUAMOUS EPITHELIAL CELL UR AU 2 /HPF (0-6); UROBILINOGEN, URINE AUTO 0.2 mg/dL (0.0-2.0); WBC, URINE AUTO 1 /HPF (0-3)
== END ==
LOC: M SFHCPLAZ 14:57
DX: R10.84 Generalized abdominal pain (principal)